=== PATIENT | female | born 1940 | race African-American/Black ===

== ENCOUNTER 2018-01-27 09:59 | Inpatient (IN) | payer OTHER, MEDICARE ==
[2018-01-27] VITALS (7 sets, daily range): BP systolic 114–186; BP diastolic 81–126; PULSE 73–102; RESP 15–20; TEMP 97.7–98.4; O2SAT 94–100
[~2018-01-27 09:59] MED LIST: ASPI81TA11 PO; CENTTAB9 PO; DILA100C PO; DONE5TAB14 PO; HCTZ25 PO; HYDR10TA23 PO; LOSA50 PO; METO50TA PO; MEVA40TA6 PO; NIFE90 PO; OMEP20TA39 PO; POTA-267 PO; TIOT18I INH
[2018-01-27] MEDS ORDERED: METO25TA3 PO (10:32)
[2018-01-27] MEDS ORDERED: PHEN100C PO (10:32)
[2018-01-27] MEDS ORDERED: TRAZ50TA12 PO (10:32)
[2018-01-27] MEDS ORDERED: LOSA50TA PO (10:32)
[2018-01-27] MEDS ORDERED: DONE5TAB7 PO (10:32)
[2018-01-27] MEDS ORDERED: VENTAER INH (10:32)
[2018-01-27] MEDS ORDERED: OMEP40CA2 (10:32)
[2018-01-27] MEDS ORDERED: SERT-132 PO (10:32)
[2018-01-27] MEDS ORDERED: HYDR25TA5 PO (10:32)
[2018-01-27] MEDS ORDERED: CHOL1CAP26 PO (10:34)
[2018-01-27] MEDS ORDERED: MELO7.5T27 PO (10:34)
[2018-01-27] MEDS ORDERED: ATOR40TA16 PO (10:34)
[2018-01-27] MEDS ORDERED: VITACAP9 (10:34)
--- NOTE | 2018-01-27 10:36 | PD ---
HPI Chief Complaint: Chest Pain Time Seen by Provider: 10:14 Travel History International Travel<30 days: No Contact w/Intl Traveler<30days: No Traveled to known affect area: No History of Present Illness HPI The patient is a 78-year-old female who presents to the emergency department via EMS from her physician's office for chest pain. The patient states she developed chest pain in December which has been intermittent, substernal left-sided, occasionally radiating down the left arm, and associated with nausea. She does occasionally note shortness of breath, but denies any diaphoresis. 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 The patient went to see her primary physician earlier today who performed an EKG and sent the patient to the emergency department via EMS. Upon arrival the patient is chest pain-free. The patient does note she worries significantly about her at home who is a diabetic and tends to fall out of bed. The patient denies any numbness or tingling of the lower extremities. Symptoms are moderate and and intermittent. PFSH Past Medical History Hx Anticoagulant Therapy: No Arthritis: Yes Asthma: No Autoimmune Disease: No Blood Disorders: No Anxiety: Yes Depression: No Heart Rhythm Problems: Yes Cancer: No Cardiac Catheterization: No Cardiovascular Problems: Yes (hld, htn, Thoracia Aneurysm) High Cholesterol: Yes Chemotherapy: No Chest Pain: Yes Congestive Heart Failure: No COPD: No Cerebrovascular Accident: No Dementia: Yes Diabetes: No Diminished Hearing: No Endocrine: Yes Gastrointestinal Disorders: Yes GERD: No Glaucoma: No Genitourinary: No Headaches: No Hepatitis: No Hiatal Hernia: No Hypertension: Yes Immune Disorder: No Implanted Vascular Access Dvce: No Kidney Stones: No Musculoskeletal: Yes Neurologic: Yes Psychiatric: Yes Reproductive: No Respiratory: Yes Migraines: No Myocardial Infarction: Yes Pneumonia: Yes Radiation Therapy: No Renal Failure: Yes (CKD 3, per medical record from DR edwards) Seizures: Yes Sickle Cell Disease: No Sleep Apnea: No Thyroid Disease: Yes Ulcer: No Tetanus Vaccination: Unknown PNEUMOCCOCAL Vaccine (Year): 1 Menopausal: Yes : 2 Para: 2 Past Surgical History Abdominal Surgery: No AICD: No Appendectomy: No Arteriovenous Shunt: No Cardiac Surgery: Yes (aneurysm) Cholecystectomy: Yes Coronary Artery Bypass Graft: No Ear Surgery: No Endocrine Surgery: No Eye Surgery: No Genitourinary Surgery: No Gynecologic Surgery: Yes (hysterectomy) Hysterectomy: Yes Insulin Pump: No Joint Replacement: No Neurologic Surgery: Yes (BRAIN SURGERY DUE TO ANEURYSM) Oral Surgery: No Pacemaker: No Thoracic Surgery: No Other Surgery: Yes Family History Family Myocardial Infarction: Yes Social History Alcohol Use: No Tobacco Use: Yes (5-6 CIGS PER DAY ) Substance Use: No Allergies-Medications (Allergen,Severity, Reaction): Coded Allergies: *MDRO Multi-Drug Resistant Organism (Verified Allergy, Unknown, 01/27/18) C-diff 12/2013 acetaminophen (Verified Allergy, Unknown, 01/27/18) codeine (Verified Allergy, Unknown, 01/27/18) MRI PRECAUTION (Verified Adverse Reaction, Severe, ANEURYSM CLIP-(JLT) 07/06 DR. HERNANDEZ, 01/27/18) Reported Meds & Prescriptions Reported Meds & Active Scripts Active Reported Vitamin B Complex-C (B Complex W/ C) 1 Cap Cap Meloxicam 7.5 Mg Tab 7.5 Mg PO DAILY Atorvastatin (Atorvastatin Calcium) 40 Mg Tab 40 Mg PO HS Decara (Cholecalciferol) 50,000 Unit Cap 50,000 Units PO Q7D Trazodone (Trazodone HCl) 50 Mg Tab 2 Tab PO HS Metoprolol Tartrate 25 Mg Tab 25 Mg PO BID Hydrochlorothiazide 25 Mg Tab 25 Mg PO DAILY Phenytoin Extended 100 Mg Cap 100 Mg PO BID Omeprazole 40 Mg Cap 40 Mg DAILY Ventolin Hfa 18 GM Inh (Albuterol Sulfate) 90 Mcg/Act Aer 2 Puff INH Q4-6H PRN Sertraline (Sertraline HCl) 50 Mg Tab 50 Mg PO DAILY Losartan (Losartan Potassium) 50 Mg Tab 50 Mg PO DAILY Donepezil 5 Mg Tab 5 Mg PO HS Review of Systems Except as stated in HPI: all other systems reviewed are Neg General / Constitutional: No: Fever HENT: No: Headaches, Lightheadedness, Neck Stiffness, Neck Pain Cardiovascular: Positive: Chest Pain or Discomfort, No: Diaphoresis, Dyspnea on exertion Respiratory: Positive: Shortness of Breath Gastrointestinal: Positive: Nausea, Vomiting, No: Abdominal Pain Musculoskeletal: No: Pain Neurologic: No: Dizziness, Syncope, Focal Abnormalities Physical Exam Narrative GENERAL: Awake, alert, pleasant 78-year-old female who appears her stated age and is in no acute respiratory distress. SKIN: Focused skin assessment warm/dry. HEAD: Atraumatic. Normocephalic. EYES: No injection or drainage. ENT: No nasal bleeding or discharge. Mucous membranes pink and moist. NECK: Trachea midline. No JVD. CARDIOVASCULAR: Regular rate and rhythm. No murmur appreciated. Palpation of the chest wall does not reproduce symptoms. RESPIRATORY: No accessory muscle use. Clear to auscultation. Breath sounds equal bilaterally. GASTROINTESTINAL: Abdomen soft, non-tender, nondistended. No rebound tenderness. MUSCULOSKELETAL: No obvious deformities. No clubbing. No cyanosis. No edema. NEUROLOGICAL: Awake and alert. No obvious cranial nerve deficits. Motor grossly within normal limits. Normal speech. PSYCHIATRIC: Appropriate mood and affect; insight and judgment normal. Data Data Last Documented VS Vital Signs Date Time Temp Pulse Resp B/P (MAP) Pulse Ox O2 Delivery O2 Flow Rate FiO2 01/27/18 12:17 144/102 (116) 01/27/18 11:31 78 16 96 Room Air 01/27/18 10:16 98.4 Orders Orders Electrocardiogram (01/27/18 10:31) Ckmb (Isoenzyme) Profile (01/27/18 10:31) Complete Blood Count With Diff (01/27/18 10:31) Comprehensive Metabolic Panel (01/27/18 10:31) Magnesium (Mg) (01/27/18 10:31) Prothrombin Time / Inr (Pt) (01/27/18 10:31) Act Partial Throm Time (Ptt) (01/27/18 10:31) Troponin I (01/27/18 10:31) Lipase (01/27/18 10:31) Chest, Single Ap (01/27/18 10:31) Ecg Monitoring (01/27/18 10:31) Bilateral Bp Monitoring (01/27/18 10:31) Iv Access Insert/Monitor (01/27/18 10:31) Oximetry (01/27/18 10:31) Oxygen Administration (01/27/18 10:31) Sodium Chloride 0.9% Flush (Ns Flush) (01/27/18 10:45) Cta Thor Abd Aorta W Iv C W3d (01/27/18 10:31) Labetalol Inj (Trandate Inj) (01/27/18 10:45) Morphine Inj (Morphine Inj) (01/27/18 12:00) Morphine Inj (Morphine Inj) (01/27/18 12:15) Morphine Inj (Morphine Inj) (01/27/18 12:12) Iohexol 350 Inj (Omnipaque 350 Inj) (01/27/18 12:48) Admit Order (Ed Use Only) (01/27/18 14:33) Labs Laboratory Tests Test 01/27/18 10:40 White Blood Count 4.9 TH/MM3 Red Blood Count 4.03 MIL/MM3 Hemoglobin 13.1 GM/DL Hematocrit 39.7 % Mean Corpuscular Volume 98.7 FL Mean Corpuscular Hemoglobin 32.4 PG Mean Corpuscular Hemoglobin Concent 32.9 % Red Cell Distribution Width 13.6 % Platelet Count 107 TH/MM3 Mean Platelet Volume 9.3 FL Neutrophils (%) (Auto) 60.0 % Lymphocytes (%) (Auto) 25.8 % Monocytes (%) (Auto) 12.8 % Eosinophils (%) (Auto) 0.5 % Basophils (%) (Auto) 0.9 % Neutrophils # (Auto) 2.9 TH/MM3 Lymphocytes # (Auto) 1.3 TH/MM3 Monocytes # (Auto) 0.6 TH/MM3 Eosinophils # (Auto) 0.0 TH/MM3 Basophils # (Auto) 0.0 TH/MM3 CBC Comment DIFF FINAL Differential Comment Prothrombin Time 11.6 SEC Prothromb Time International Ratio 1.1 RATIO Activated Partial Thromboplast Time 26.0 SEC Blood Urea Nitrogen 9 MG/DL Creatinine 0.77 MG/DL Random Glucose 82 MG/DL Total Protein 7.2 GM/DL Albumin 3.2 GM/DL Calcium Level 8.1 MG/DL Magnesium Level 1.8 MG/DL Alkaline Phosphatase 154 U/L Aspartate Amino Transf (AST/SGOT) 28 U/L Alanine Aminotransferase (ALT/SGPT) 14 U/L Total Bilirubin 0.4 MG/DL Sodium Level 139 MEQ/L Potassium Level 3.7 MEQ/L Chloride Level 105 MEQ/L Carbon Dioxide Level 23.9 MEQ/L Anion Gap 10 MEQ/L Estimat Glomerular Filtration Rate 88 ML/MIN Total Creatine Kinase 87 U/L Troponin I LESS THAN 0.02 NG/ML Lipase 483 U/L [facility] Medical Decision Making Medical Screen Exam Complete: Yes Emergency Medical Condition: Yes Medical Record Reviewed: Yes Interpretation(s) EKG reveals normal sinus rhythm with a rate 82. Inverted T waves noted in lead V2, V3, V4, V5, V6, 1, and aVL. The T-wave changes in lead V3 through V6 and I and aVL are new when compared to previous EKG. Last Impressions Chest X-Ray 01/27/18 1031 Signed Impressions: Service Date/Time: Saturday, January 27, 2018 11:10 - CONCLUSION: No acute disease. Boom Tatum MD Aorta CTA 01/27/18 1031 Signed Impressions: Service Date/Time: Saturday, January 27, 2018 12:25 - CONCLUSION: 1. The examination demonstrates aneurysmal dilation of the ascending aorta aortic arch and descending thoracic aorta. The aorta at its widest point in the arch measures approximately 3.8 cm. This is only slightly larger than seen on previous exam it should be noted on the prior exam there appears to have been an acute thrombosis of a dissection flap. This has significantly improved in appearance with partial healing. The proximal descending thoracic aorta is at the upper limits of normal in caliber measuring 2.7 cm. 2. The distal thoracic aorta demonstrates a focal area of contrast extending out into the mural thrombus. This appears to be feeding the origin of an intercostal artery. There was contrast in this area on the previous study of 2014 however, it appears more organized and slightly larger on today's exam. 3. The distalmost portion of thoracic aorta is aneurysmal. Maximum dimension is essentially at the diaphragmatic hiatus. The aorta measures 5.4 centimeters at this level. This is similar in size compared to previous. 4. The abdominal aorta is aneurysmal in its distal segment measuring 5.6 cm. This has enlarged when compared to previous. The aorta measured 3.7 cm at this location on the prior. 5. 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 The right measures approximately 2.5 cm. The iliac circulation is mildly enlarged compared to previous as well. Maximum dimension on the left was 2.2 cm on the prior. Tong Thomas MD Laboratory Tests Test 01/27/18 10:40 White Blood Count 4.9 TH/MM3 Red Blood Count 4.03 MIL/MM3 Hemoglobin 13.1 GM/DL Hematocrit 39.7 % Mean Corpuscular Volume 98.7 FL Mean Corpuscular Hemoglobin 32.4 PG Mean Corpuscular Hemoglobin Concent 32.9 % Red Cell Distribution Width 13.6 % Platelet Count 107 TH/MM3 Mean Platelet Volume 9.3 FL Neutrophils (%) (Auto) 60.0 % Lymphocytes (%) (Auto) 25.8 % Monocytes (%) (Auto) 12.8 % Eosinophils (%) (Auto) 0.5 % Basophils (%) (Auto) 0.9 % Neutrophils # (Auto) 2.9 TH/MM3 Lymphocytes # (Auto) 1.3 TH/MM3 Monocytes # (Auto) 0.6 TH/MM3 Eosinophils # (Auto) 0.0 TH/MM3 Basophils # (Auto) 0.0 TH/MM3 CBC Comment DIFF FINAL Differential Comment Prothrombin Time 11.6 SEC Prothromb Time International Ratio 1.1 RATIO Activated Partial Thromboplast Time 26.0 SEC Blood Urea Nitrogen 9 MG/DL Creatinine 0.77 MG/DL Random Glucose 82 MG/DL Total Protein 7.2 GM/DL Albumin 3.2 GM/DL Calcium Level 8.1 MG/DL Magnesium Level 1.8 MG/DL Alkaline Phosphatase 154 U/L Aspartate Amino Transf (AST/SGOT) 28 U/L Alanine Aminotransferase (ALT/SGPT) 14 U/L Total Bilirubin 0.4 MG/DL Sodium Level 139 MEQ/L Potassium Level 3.7 MEQ/L Chloride Level 105 MEQ/L Carbon Dioxide Level 23.9 MEQ/L Anion Gap 10 MEQ/L Estimat Glomerular Filtration Rate 88 ML/MIN Total Creatine Kinase 87 U/L Troponin I LESS THAN 0.02 NG/ML Lipase 483 U/L Differential Diagnosis Differential diagnosis includes acute coronary syndrome, aortic dissection, thoracic aneurysm, pulmonary embolism, GERD, esophageal spasm, costochondritis, anxiety. Narrative Course IV was established, labs are drawn and sent, the patient was placed on cardiac telemetry monitoring and continuous pulse oximetry monitoring. EKG was ordered and interpreted. Chest x-ray was obtained. The patient is currently chest pain -free, therefore, no medications were acutely administered, however, CTA of the chest and abdomen were obtained to evaluate for possible dissection, prior to anticoagulation with aspirin. CTA of the chest was reviewed, some of the aneurysms are stable, some are larger, however, I did review the patient's previous admission in 2013 and notes by the cardiothoracic surgeons at that time. They stated the patient had non-operative aneurysms and dissection at that time. The patient's abdominal aneurysm has enlarged. The patient apparently was evaluated at [facility] and was deemed a nonoperative candidate. It appears the patient needs better blood pressure control, will be admitted to the medical service for observation of patient's blood pressure. Patient is comfortable with this plan of care and disposition. The patient did have EKG findings which revealed new inverted T waves, may benefit from serial cardiac enzymes. Physician Communication Physician Communication The patient has [employer], therefore, [facility] were paged for admission. Diagnosis Primary Impression: Atypical chest pain Additional Impressions: Hx of abdominal aortic aneurysm Accelerated hypertension Admitting Information Admitting Physician Requests: Admit Condition: Stable Ramiro Rg MD January 27, 2018 10:36
[2018-01-27] MEDS ORDERED: LABETALOL HCL 100 MG/20 ML VIAL IV PUSH ONE (10:45)
[2018-01-27] MEDS ORDERED: SODIUM CHLORIDE 0.9% FLUSH 10 ML FLUSH IVF PRN (10:45)
[2018-01-27 11:07] LABS: AUTOMATED NEUTROPHIL # 2.9 TH/MM3 (1.8-7.7); BASOPHIL % 0.9 % (0.0-2.0); EOSINOPHIL % 0.5 % (0.0-4.0); HEMATOCRIT 39.7 % (35.0-46.0); HEMOGLOBIN 13.1 GM/DL (11.6-15.3); LYMPH % 25.8 % (9.0-44.0); LYMPHOCYTE # 1.3 TH/MM3 (1.0-4.8); MEAN CELL VOLUME 98.7 FL (80.0-100.0); MEAN CORPUSCULAR HEMOGLOBIN 32.4 PG (27.0-34.0); MEAN CORPUSCULAR HGB CONC 32.9 % (32.0-36.0); MEAN PLATELET VOLUME 9.3 FL (7.0-11.0); MONO % 12.8 % (0.0-8.0); MONOCYTE # 0.6 TH/MM3 (0-0.9); PLATELET COUNT 107 TH/MM3 (150-450); RED BLOOD COUNT 4.03 MIL/MM3 (4.00-5.30); RED CELL DISTRIBUTION WIDTH 13.6 % (11.6-17.2); WHITE BLOOD COUNT 4.9 TH/MM3 (4.0-11.0)
[2018-01-27 11:19] LABS: INTERNATIONAL NORMALIZED RATIO 1.1 RATIO; PROTHROMBIN TIME - PATIENT 11.6 SEC (9.8-11.6)
--- NOTE | 2018-01-27 11:52 | RADRPT ---
EXAM DATE/TIME: 01/27/2018 11:10 [facility] COMPARISON: No previous studies available for comparison. INDICATIONS : Short of breath with chest tightness. MEDICAL HISTORY : Congestive heart failure. SURGICAL HISTORY : None. ENCOUNTER: Initial ACUITY: 2 days PAIN SCORE: 2/10 LOCATION: Bilateral chest FINDINGS: Hyperinflation and cardiomegaly. Atherosclerotic calcifications are seen. There is no consolidation o r effusion. Descending thoracic aortic aneurysm with again noted. CONCLUSION: No acute disease. Boom Tatum MD on January 27, 2018 at 11:48 Board Certified Radiologist. This report was verified electronically.
[2018-01-27] MEDS ORDERED: MORPHINE SULFATE 2 MG/ML SYRINGE IV PUSH ONE (12:00)
[2018-01-27 12:01] LABS: ALBUMIN 3.2 GM/DL (3.4-5.0); BLOOD UREA NITROGEN 9 MG/DL (7-18); CALCIUM 8.1 MG/DL (8.5-10.1); CREATININE 0.77 MG/DL (0.50-1.00); GLOMERULAR FILTRATION RATE 88 ML/MIN (>89); GLUCOSE,RANDOM 82 MG/DL (74-106); MAGNESIUM 1.8 MG/DL (1.5-2.5); TOTAL PROTEIN 7.2 GM/DL (6.4-8.2)
[2018-01-27 12:02] LABS: ALKALINE PHOSPHATASE 154 U/L (45-117); ALT (GPT) 14 U/L (10-53); AST (GOT) 28 U/L (15-37); BICARBONATE 23.9 MEQ/L (21.0-32.0); CHLORIDE 105 MEQ/L (98-107); SODIUM (NA) 139 MEQ/L (136-145); TOTAL BILIRUBIN ADULT 0.4 MG/DL (0.2-1.0)
[2018-01-27 12:03] LABS: TROPONIN I LESS THAN 0.02 NG/ML (0.02-0.05)
[2018-01-27] MEDS ORDERED: MORPHINE SULFATE 4 MG/ML INJ ONE (12:12)
[2018-01-27] MEDS ORDERED: MORPHINE SULFATE 4 MG/ML INJ IV PUSH ONE (12:15)
[2018-01-27] MEDS ORDERED: IOHEXOL 350 MG/ML 10 ML VIAL (for RAD DIAG) IVCONTRAST ONE (12:48)
--- NOTE | 2018-01-27 13:34 | RADRPT ---
EXAM DATE/TIME: 01/27/2018 12:25 [facility] COMPARISON: CTA THORACIC ABDOMINAL AORTA W 3D RECON, July 07, 2015, 3:46. INDICATIONS : Abdominal and chest pain, left arm weakness. IV CONTRAST: 150 cc Omnipaque 350 (iohexol) IV RADIATION DOSE: 4.52 CTDIvol (mGy) MEDICAL HISTORY : Dementia. Cardiovascular disease Hypertension.Abdominal aneurysm SURGICAL HISTORY : Hysterectomy. ENCOUNTER: Initial ACUITY: 1 week PAIN SCALE: 5/10 LOCATION: chest TECHNIQUE: Volumetric scanning was performed using a multi-row detector CT scanner. The data was post processed with a variety of visualization algorithms including full volume maximum intensity projection, multi -planar sliding thin slab reformation, curved planar reformation, and surface rendering techniques. Using automated exposure control and adjustment of the mA and/or kV according to patient size, radiat ion dose was kept as low as reasonably achievable to obtain optimal diagnostic quality images. DICOM format image data is available electronically for review and comparison. FINDINGS: LUNGS: The visualized pulmonary parenchyma demonstrates moderate COPD changes. No suspicious mass lesions ar e identified. The heart is normal in size. MEDIASTINUM: No significant hilar, mediastinal or axillary adenopathy is present. ABDOMEN: The solid organs of the abdomen are grossly intact by arterial phase imaging. No retroperitoneal andi opathy is identified. There is no free air or free fluid. PELVIS: There is no significant free fluid in the pelvis. No free air is seen. No iliac or inguinal adenopath y is present. AORTA/ILIAC : The examination demonstrates the aortic root to be normal in caliber. There is aneurysmal dilation of the ascending aorta with a maximum dimension of 3.7 cm. The arch is significantly dilated measuring 3.8 cm in its mid aspect. There is normal anatomic branching of the great vessels from the arch. The origins of the great vessels are widely patent. The aorta tapers in size along the course of the dist al arch and at measures approximately 2.7 cm in its proximal aspect. Distally, the examination demons trates contrast projecting into the mural thrombus in its mid thoracic segment. This appears to be fe eding in intercostal artery at this location. Beneath this there is significant aneurysmal enlargemen t of the distal thoracic aorta measuring approximately 5.4 cm in its distal thoracic segment. The aor ta remains aneurysmal across the origins of the celiac, SMA and renal arteries. Inferiorly the infrar enal aorta is quite aneurysmal measuring 5.6 cm just above the iliac bifurcation. The aneurysmal dila tion extends down to and involves the proximal common iliac arteries. The left common iliac measures 5.3 CM. The proximal right common iliac measures 2.3 CM. The external iliac arteries are unopacified but appear normal in caliber. CONCLUSION: 1. The examination demonstrates aneurysmal dilation of the ascending aorta aortic arch and descending thoracic aorta. The aorta at its widest point in the arch measures approximately 3.8 cm. This is onl y slightly larger than seen on previous exam it should be noted on the prior exam there appears to baker ve been an acute thrombosis of a dissection flap. This has significantly improved in appearance with partial healing. The proximal descending thoracic aorta is at the upper limits of normal in caliber m easuring 2.7 cm. 2. The distal thoracic aorta demonstrates a focal area of contrast extending out into the mural throm bus. This appears to be feeding the origin of an intercostal artery. There was contrast in this area on the previous study of 2014 however, it appears more organized and slightly larger on today's exam. 3. The distalmost portion of thoracic aorta is aneurysmal. Maximum dimension is essentially at the di aphragmatic hiatus. The aorta measures 5.4 centimeters at this level. This is similar in size compare d to previous. 4. The abdominal aorta is aneurysmal in its distal segment measuring 5.6 cm. This has enlarged when c ompared to previous. The aorta measured 3.7 cm at this location on the prior. 5. 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 The right measures approximately 2.5 cm. The iliac circulation is mildly enlarged compared to previous as well. Maximum dimension on the left was 2.2 cm on the prior. Tong Thomas MD on January 27, 2018 at 13:08 Board Certified Radiologist. This report was verified electronically.
[2018-01-27] MEDS ORDERED: MAGNESIUM HYDROXIDE SUSP 30 ML CUP PO PRN (14:45)
[2018-01-27] MEDS ORDERED: SODIUM CHLORIDE 0.9% FLUSH 10 ML FLUSH IV FLUSH PRN (14:45)
[2018-01-27] MEDS ORDERED: NIFEdipine 60 MG SUSTAINED RELEASE TAB PO ONE (14:45)
[2018-01-27] MEDS ORDERED: NALOXONE HCL 0.4 MG/ML AMP IV PUSH PRN (14:45)
[2018-01-27] MEDS ORDERED: BISACODYL 10 MG SUPP RECTAL PRN (14:45)
[2018-01-27] MEDS ORDERED: LACTULOSE SYRUP 20 GM/30 ML CUP PO PRN (14:45)
[2018-01-27] MEDS ORDERED: ENALAPRILAT 1.25 MG/ML VIAL IV PUSH PRN (14:45)
[2018-01-27] MEDS ORDERED: SENNOSIDES 8.6 MG TAB PO PRN (14:45)
[2018-01-27] MEDS ORDERED: ALBUTEROL SULFATE 90 MCG/ACT HFA 8 GM INHALER INH PRN (17:30)
--- NOTE | 2018-01-27 17:53 | HHI.HP ---
[facility] Admission Diagnosis Chest pain, history of AAA, history dissection, hypertension Diagnoses: Travel History International Travel<30 Days: No Contact w/Intl Traveler <30 Da: No Traveled to Known Affected Are: No History of Present Illness 78-year-old female history of dementia, thoracic aortic aneurysm who presents with a one-month history of intermittent sharp left sided chest pain radiating to left arm as well as stomach. She is currently asymptomatic. she reports that this has been going on since December, occurs usually when she is upset that her has fallen out of bed. She says she has run out of some of her medications recently but is not sure of the names of them. She says she was supposed to go to a doctor's appointment today but missed it, which is why she is here. Again, she denies any current pain. She denies any nausea, vomiting, lightheadedness, dizziness, fevers, chills. She does report chronic ongoing weight loss, unable to quantify, which she attributes to poor appetite. Review of Systems Except as stated in HPI: all other systems reviewed are Neg Past Family Social History Past Medical History Hypertension COPD Abdominal and thoracic aortic aneurysm Seizure disorder Depression GERD Past Surgical History Left forearm surgery Brain surgery for aneurysm over 15 years ago. Hysterectomy Reported Medications Reported Meds & Active Scripts Active Reported Vitamin B Complex-C (B Complex W/ C) 1 Cap Cap Meloxicam 7.5 Mg Tab 7.5 Mg PO DAILY Atorvastatin (Atorvastatin Calcium) 40 Mg Tab 40 Mg PO HS Decara (Cholecalciferol) 50,000 Unit Cap 50,000 Units PO Q7D Trazodone (Trazodone HCl) 50 Mg Tab 2 Tab PO HS Metoprolol Tartrate 25 Mg Tab 25 Mg PO BID Hydrochlorothiazide 25 Mg Tab 25 Mg PO DAILY Phenytoin Extended 100 Mg Cap 100 Mg PO BID Omeprazole 40 Mg Cap 40 Mg DAILY Ventolin Hfa 18 GM Inh (Albuterol Sulfate) 90 Mcg/Act Aer 2 Puff INH Q4-6H PRN Sertraline (Sertraline HCl) 50 Mg Tab 50 Mg PO DAILY Losartan (Losartan Potassium) 50 Mg Tab 50 Mg PO DAILY Donepezil 5 Mg Tab 5 Mg PO HS Allergies: Coded Allergies: *MDRO Multi-Drug Resistant Organism (Verified Allergy, Unknown, 01/27/18) C-diff 12/2013 acetaminophen (Verified Allergy, Unknown, 01/27/18) codeine (Verified Allergy, Unknown, 01/27/18) MRI PRECAUTION (Verified Adverse Reaction, Severe, ANEURYSM CLIP-(JLT) 07/06 DR. HERNANDEZ, 01/27/18) Family History Patient says father had a stroke, mother had a heart problem Social History Patient reports that she smokes 2 cigarettes per day, and has smoked for the past 50 years. Denies any alcohol or illicit drugs. Physical Exam Vital Signs Vital Signs Date Time Temp Pulse Resp B/P (MAP) Pulse Ox O2 Delivery O2 Flow Rate FiO2 01/27/18 17:07 97.7 73 20 162/93 (116) 99 01/27/18 16:25 01/27/18 15:46 98.1 77 19 140/88 (105) 94 Room Air 01/27/18 12:17 144/102 (116) 01/27/18 11:31 78 16 152/96 (114) 96 Room Air 01/27/18 10:45 82 15 170/126 (141) 99 Room Air 01/27/18 10:16 90 17 99 Room Air 01/27/18 10:16 98.4 93 16 175/117 (136) 100 Room Air 186/122 (143) Physical Exam GENERAL: This is a well-nourished, well-developed patient, in no apparent distress. SKIN: No rashes, ecchymoses or lesions. Cool and dry. HEAD: Atraumatic. Normocephalic. No temporal or scalp tenderness. EYES: Pupils equal round and reactive. Extraocular motions intact. No scleral icterus. No injection or drainage. ENT: Nose without bleeding, purulent drainage or septal hematoma. Throat without erythema, tonsillar hypertrophy or exudate. Uvula midline. Airway patent. NECK: Trachea midline. No JVD or lymphadenopathy. Supple, nontender, no meningeal signs. CARDIOVASCULAR: Regular rate and rhythm without murmurs, gallops, or rubs. Pulses equal bilaterally in upper extremities. RESPIRATORY: Clear to auscultation. Breath sounds equal bilaterally. No wheezes , rales, or rhonchi. GASTROINTESTINAL: Abdomen soft, non-tender, nondistended. No hepato-splenomegaly , or palpable masses. No guarding. MUSCULOSKELETAL: Extremities without clubbing, cyanosis, or edema. No joint tenderness, effusion, or edema noted. No calf tenderness. Negative Homans sign bilaterally. NEUROLOGICAL: Awake and alert. Cranial nerves II through XII intact. Motor and sensory grossly within normal limits. Five out of 5 muscle strength in all muscle groups. Normal speech. Laboratory Laboratory Tests Test 01/27/18 10:40 White Blood Count 4.9 Red Blood Count 4.03 Hemoglobin 13.1 Hematocrit 39.7 Mean Corpuscular Volume 98.7 Mean Corpuscular Hemoglobin 32.4 Mean Corpuscular Hemoglobin Concent 32.9 Red Cell Distribution Width 13.6 Platelet Count 107 Mean Platelet Volume 9.3 Neutrophils (%) (Auto) 60.0 Lymphocytes (%) (Auto) 25.8 Monocytes (%) (Auto) 12.8 Eosinophils (%) (Auto) 0.5 Basophils (%) (Auto) 0.9 Neutrophils # (Auto) 2.9 Lymphocytes # (Auto) 1.3 Monocytes # (Auto) 0.6 Eosinophils # (Auto) 0.0 Basophils # (Auto) 0.0 CBC Comment DIFF FINAL Differential Comment Prothrombin Time 11.6 Prothromb Time International Ratio 1.1 Activated Partial Thromboplast Time 26.0 Blood Urea Nitrogen 9 Creatinine 0.77 Random Glucose 82 Total Protein 7.2 Albumin 3.2 Calcium Level 8.1 Magnesium Level 1.8 Alkaline Phosphatase 154 Aspartate Amino Transf (AST/SGOT) 28 Alanine Aminotransferase (ALT/SGPT) 14 Total Bilirubin 0.4 Sodium Level 139 Potassium Level 3.7 Chloride Level 105 Carbon Dioxide Level 23.9 Anion Gap 10 Estimat Glomerular Filtration Rate 88 Total Creatine Kinase 87 Troponin I LESS THAN 0.02 Lipase 483 Result Diagram: 01/27/18 1040 01/27/18 1040 Imaging Last Impressions Chest X-Ray 01/27/18 1031 Signed Impressions: Service Date/Time: Saturday, January 27, 2018 11:10 - CONCLUSION: No acute disease. Boom Tatum MD Aorta CTA 01/27/18 1031 Signed Impressions: Service Date/Time: Saturday, January 27, 2018 12:25 - CONCLUSION: 1. The examination demonstrates aneurysmal dilation of the ascending aorta aortic arch and descending thoracic aorta. The aorta at its widest point in the arch measures approximately 3.8 cm. This is only slightly larger than seen on previous exam it should be noted on the prior exam there appears to have been an acute thrombosis of a dissection flap. This has significantly improved in appearance with partial healing. The proximal descending thoracic aorta is at the upper limits of normal in caliber measuring 2.7 cm. 2. The distal thoracic aorta demonstrates a focal area of contrast extending out into the mural thrombus. This appears to be feeding the origin of an intercostal artery. There was contrast in this area on the previous study of 2014 however, it appears more organized and slightly larger on today's exam. 3. The distalmost portion of thoracic aorta is aneurysmal. Maximum dimension is essentially at the diaphragmatic hiatus. The aorta measures 5.4 centimeters at this level. This is similar in size compared to previous. 4. The abdominal aorta is aneurysmal in its distal segment measuring 5.6 cm. This has enlarged when compared to previous. The aorta measured 3.7 cm at this location on the prior. 5. 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 The right measures approximately 2.5 cm. The iliac circulation is mildly enlarged compared to previous as well. Maximum dimension on the left was 2.2 cm on the prior. Tong Thomas MD Caprini VTE Risk Assessment Caprini VTE Risk Assessment: Mod/High Risk (score >= 2) Caprini Risk Assessment Model Point Value = 1 Point Value = 2 Point Value = 3 Point Value = 5 Age 41-60 Minor surgery BMI > 25 kg/m2 Swollen legs Varicose veins or History of unexplained or recurrent spontaneous Oral contraceptives or hormone replacement Sepsis (< 1 month) Serious lung disease, including pneumonia (< 1 month) Abnormal pulmonary function Acute myocardial infarction Congestive heart failure (< 1 month) History of inflammatory bowel disease Medical patient at bed rest Age 61-74 Arthroscopic surgery Major open surgery (> 45 min) Laparoscopic surgery (> 45 min) Malignancy Confined to bed (> 72 hours) Immobilizing plaster cast Central venous access Age >= 75 History of VTE Family history of VTE Factor V Leiden Prothrombin [id number] Lupus anticoagulant Anticardiolipin antibodies Elevated serum homocysteine Heparin-induced thrombocytopenia Other congenital or acquired thrombophilia Stroke (< 1 month) Elective arthroplasty Hip, pelvis, or leg fracture Acute spinal cord injury (< 1 month) Prophylaxis Regimen Total Risk Factor Score Risk Level Prophylaxis Regimen 0-1 Low Early ambulation 2 Moderate Order ONE of the following: *Sequential Compression Device (SCD) *Heparin 5000 units SQ BID 3-4 Higher Order ONE of the following medications: *Heparin 5000 units SQ TID *Enoxaparin/Lovenox 40 mg SQ daily (WT < 150 kg, CrCl > 30 mL/min) *Enoxaparin/Lovenox 30 mg SQ daily (WT < 150 kg, CrCl > 10-29 mL/min) *Enoxaparin/Lovenox 30 mg SQ BID (WT < 150 kg, CrCl > 30 mL/min) AND/OR *Sequential Compression Device (SCD) 5 or more Highest Order ONE of the following medications: *Heparin 5000 units SQ TID (Preferred with Epidurals) *Enoxaparin/Lovenox 40 mg SQ daily (WT < 150 kg, CrCl > 30 mL/min) *Enoxaparin/Lovenox 30 mg SQ daily (WT < 150 kg, CrCl > 10-29 mL/min) *Enoxaparin/Lovenox 30 mg SQ BID (WT < 150 kg, CrCl > 30 mL/min) AND *Sequential Compression Device (SCD) Assessment and Plan Assessment and Plan //Intermittent chest pain. Currently asymptomatic //History of thoracic aortic aneurysm. = Patient previously noted not to be a surgical candidate for thoracic aortic aneurysm. = Imaging of thoracic aorta as above with some gradual changes, however no acute changes = Systolic blood pressures in the 180s on presentation. = Blood pressure control. Would be under systolic of 120. = Trend EKGs and troponins. = Apparent new T-wave inversion on EKG. Cardiology consultation. //Accelerated hypertension. With systolic blood pressures in the 180s on admission. = Restart home blood pressure meds and monitor. //Chronic severe dementia. Continue donepezil. //Medication noncompliance = Secondary to dementia //Seizure disorder. Chronic. Continue phenytoin. //Depression. Chronic. Continue Zoloft. Will hold off on trazodone due to hypertension. //GERD. Chronic. Continue PPI. //Tobacco abuse. Patient counseled on cessation. //Chronic ongoing weight loss. This could be secondary to dementia. Tobacco cessation could be helpful. Encourage p.o. intake. Discussed Condition With Patient, nurse, ED physician. Juice Luis MD January 27, 2018 17:53
[2018-01-27] MEDS: hydrALAZINE HCL 50 MG TAB PO SCH ×2 (18:36→20:42)
--- NOTE | 2018-01-27 18:53 | MB ---
cc: Jonathan Rivera MD DATE: 01/27/2018 REASON FOR CONSULTATION: For evaluation of chest pain. HISTORY OF PRESENT ILLNESS: Alie Jacobs is an 82-year-old woman with hypertensive heart disease. She has aortic aneurysms. She was evaluated in [facility]. She said she was told that she would not survive surgery on her aneurysms. She has had documented severe left ventricular hypertrophy by echo and by EKG and her blood pressure is poorly controlled. She has been having intermittent chest pain for 2 weeks. She describes it as an ache-like pain in the left chest; it comes and goes. She is not currently having any. Her blood pressure was 186/122 when she came to the ER. Apparently has had a previous aortic dissection based on the reading of the CT scan, which is showing some healing. She is a lifelong smoker. She has not smoked in about 5 days, but has not formally made a decision to quit smoking. Her last nuclear stress test was 07/2014 and this showed no stress-induced ischemia. Her initial troponin is normal. PAST MEDICAL HISTORY: Includes hypertensive heart disease. There is mention in her history of some dementia, although she seems alert. Hyperlipidemia, hypertension, COPD, murmur of aortic valve sclerosis, previous pancreatitis, previous seizures, tobacco use disorder. PAST SURGICAL HISTORY: Includes cerebral aneurysm surgery in 1997, cholecystectomy, hysterectomy. SOCIAL HISTORY: He is . She smokes. Denies alcohol. ALLERGIES: INCLUDE TYLENOL #3. FAMILY HISTORY: Positive for stroke in the father and heart disease in the mother. PHYSICAL EXAMINATION: GENERAL: A thin -[place] female, alert and oriented, no acute distress. VITAL SIGNS: Charted. Blood pressure is very elevated. HEENT: Exam unremarkable. NECK: No JVD. No bruits. CHEST: Shows diminished breath sounds throughout. CARDIAC: S1, S2. Regular rate and rhythm with a prominent 2/6 systolic ejection murmur suggestive of aortic valve sclerosis. ABDOMEN: Soft, nontender. EXTREMITIES: Reveal diminished pedal pulses. LABORATORY DATA: Charted. Troponin is negative. IMAGING STUDIES: CTA was abnormal. See report. IMPRESSION: 1. Hypertensive heart disease with severe uncontrolled hypertension. 2. Chest pain without currently any objective evidence for ischemia. 3. Electrocardiogram shows left ventricular hypertrophy, left ventricular strain from chronic hypertension and severe left ventricular hypertrophy. 4. Tobacco abuse. RECOMMENDATIONS: 1. Quit smoking. 2. Need to get her blood pressure under better control. 3. May need a nephrology consult. 4. We will see how she responds to the current medication regimen and adjust as needed. 5. Serial troponins to rule out myocardial infarction. 6. Further therapy to be determined. MD HANNAH Martinez/RAZIA , 06:36 PM , 06:52 PM
--- NOTE | 2018-01-27 19:19 | EKG ---
Date Performed: 01/27/2018 Time Performed: 10:27:00 PTAGE: 78 years EKG: Sinus rhythm LEFT ATRIAL ENLARGEMENT POSSIBLE RIGHT VENTRICULAR CONDUCTION DELAY POSSIBLE LEFT VENTRICULAR HYPERT ROPHY MODERATE T-WAVE ABNORMALITY, CONSIDER ANTEROLATERAL ISCHEMIA ABNORMAL ECG When compared to prio r tracing,patient is now in sinus rythm and has P-wave inversions consistent with ischemia or hypertr ophy. clinical correlation requested. PREVIOUS TRACING : 07/06/2015 08.12 DOCTOR: Donna Henderson Interpretating Date/Time 01/27/2018 19:40:27
[2018-01-27] MEDS ORDERED: ASPIRIN 81 MG CHEW TAB CHEW ONE (20:00)
[2018-01-27] MEDS: ATORVASTATIN 40 MG TAB PO SCH (20:43)
[2018-01-27] MEDS: PHENYTOIN SODIUM 100 MG CAP PO SCH (20:43)
[2018-01-27] MEDS: DONEPEZIL HCL 5 MG TAB PO SCH (20:43)
[2018-01-27] MEDS: METOPROLOL TARTRATE 25 MG TAB PO SCH (20:43)
[2018-01-27] MEDS: SODIUM CHLORIDE 0.9% FLUSH 10 ML FLUSH IV FLUSH SCH (20:44)
[2018-01-28] VITALS (7 sets, daily range): BP systolic 92–149; BP diastolic 58–96; PULSE 73–104; RESP 16–18; TEMP 97.6–99.6; O2SAT 97–98
[2018-01-28 02:15] LABS: AUTOMATED NEUTROPHIL # 3.4 TH/MM3 (1.8-7.7); BASOPHIL % 0.9 % (0.0-2.0); EOSINOPHIL # 0.1 TH/MM3 (0-0.4); EOSINOPHIL % 1.1 % (0.0-4.0); HEMATOCRIT 38.8 % (35.0-46.0); HEMOGLOBIN 12.9 GM/DL (11.6-15.3); LYMPH % 26.7 % (9.0-44.0); LYMPHOCYTE # 1.5 TH/MM3 (1.0-4.8); MEAN CELL VOLUME 98.1 FL (80.0-100.0); MEAN CORPUSCULAR HEMOGLOBIN 32.5 PG (27.0-34.0); MEAN CORPUSCULAR HGB CONC 33.1 % (32.0-36.0); MEAN PLATELET VOLUME 9.4 FL (7.0-11.0); MONOCYTE # 0.7 TH/MM3 (0-0.9); NEUT % 59.3 % (16.0-70.0); PLATELET COUNT 102 TH/MM3 (150-450); RED BLOOD COUNT 3.96 MIL/MM3 (4.00-5.30); RED CELL DISTRIBUTION WIDTH 13.8 % (11.6-17.2); WHITE BLOOD COUNT 5.7 TH/MM3 (4.0-11.0)
[2018-01-28 02:32] LABS: ALBUMIN 3.3 GM/DL (3.4-5.0); ALT (GPT) 15 U/L (10-53); AST (GOT) 28 U/L (15-37); BICARBONATE 30.4 MEQ/L (21.0-32.0); BLOOD UREA NITROGEN 12 MG/DL (7-18); CALCIUM 8.9 MG/DL (8.5-10.1); CHLORIDE 102 MEQ/L (98-107); GLOMERULAR FILTRATION RATE 84 ML/MIN (>89); GLUCOSE,RANDOM 101 MG/DL (74-106); SODIUM (NA) 139 MEQ/L (136-145)
[2018-01-28 02:36] LABS: ALKALINE PHOSPHATASE 174 U/L (45-117); TOTAL BILIRUBIN ADULT 0.3 MG/DL (0.2-1.0); TOTAL PROTEIN 7.5 GM/DL (6.4-8.2)
[2018-01-28] MEDS: hydrALAZINE HCL 50 MG TAB PO SCH ×3 (05:20→22:00)
[2018-01-28] MEDS ORDERED: MORPHINE SULFATE 4 MG/ML INJ IV PUSH ONE ×2 (06:45→11:45)
[2018-01-28] MEDS: PANTOPRAZOLE SOD 40 MG DELAYED RELEASE TAB PO SCH (08:22)
[2018-01-28] MEDS: SERTRALINE HCL 50 MG TAB PO SCH (08:22)
[2018-01-28] MEDS: NIFEdipine 90 MG SUSTAINED RELEASE TAB PO SCH (08:23)
[2018-01-28] MEDS: HYDROCHLOROTHIAZIDE 25 MG TAB PO SCH (08:23)
[2018-01-28] MEDS: ASPIRIN 81 MG CHEW TAB CHEW SCH (08:23)
[2018-01-28] MEDS: LOSARTAN 50 MG TAB PO SCH (08:23)
[2018-01-28] MEDS: PHENYTOIN SODIUM 100 MG CAP PO SCH ×2 (08:23→23:09)
[2018-01-28] MEDS: METOPROLOL TARTRATE 25 MG TAB PO SCH ×2 (08:24→23:09)
[2018-01-28] MEDS: SODIUM CHLORIDE 0.9% FLUSH 10 ML FLUSH IV FLUSH SCH ×2 (08:24→23:09)
[2018-01-28 08:56] LABS: TROPONIN I 0.36 NG/ML (0.02-0.05)
--- NOTE | 2018-01-28 09:42 | HHI.PR ---
Subjective Remarks Follow up for chest pain, elevated troponin. The patient reports she woke up with left upper abdominal pain today and some associated nausea, but no vomiting. She describes the pain as a 10/10 constant ache, without radiation. Denies any shortness of breath or diaphoresis. Denies any specific chest pains today. Denies any other medical complaints at this time. Objective Vitals Vital Signs Date Time Temp Pulse Resp B/P (MAP) Pulse Ox O2 Delivery O2 Flow Rate FiO2 01/28/18 07:35 97.6 87 16 92/58 (69) 97 01/28/18 04:39 98.3 88 18 149/96 (113) 98 01/28/18 04:00 88 01/28/18 03:07 98.5 83 18 129/87 (101) 97 01/27/18 20:07 98.3 102 18 114/81 (92) 96 01/27/18 17:07 97.7 73 20 162/93 (116) 99 01/27/18 16:25 01/27/18 15:46 98.1 77 19 140/88 (105) 94 Room Air 01/27/18 12:17 144/102 (116) 01/27/18 11:31 78 16 152/96 (114) 96 Room Air 01/27/18 10:45 82 15 170/126 (141) 99 Room Air 01/27/18 10:16 90 17 99 Room Air 01/27/18 10:16 98.4 93 16 175/117 (136) 100 Room Air 186/122 (143) I/O 01/27/18 01/27/18 01/27/18 01/28/18 01/28/18 01/28/18 07:00 15:00 23:00 07:00 15:00 23:00 Intake Total 300 ml 720 ml Balance 300 ml 720 ml Intake Oral 300 ml 720 ml # Voids 2 Result Diagram: 01/28/18 0202 01/28/18 0202 Imaging Last Impressions Chest X-Ray 01/27/18 1031 Signed Impressions: Service Date/Time: Saturday, January 27, 2018 11:10 - CONCLUSION: No acute disease. Boom Tatum MD Aorta CTA 01/27/18 1031 Signed Impressions: Service Date/Time: Mya, January 27, 2018 12:25 - CONCLUSION: 1. The examination demonstrates aneurysmal dilation of the ascending aorta aortic arch and descending thoracic aorta. The aorta at its widest point in the arch measures approximately 3.8 cm. This is only slightly larger than seen on previous exam it should be noted on the prior exam there appears to have been an acute thrombosis of a dissection flap. This has significantly improved in appearance with partial healing. The proximal descending thoracic aorta is at the upper limits of normal in caliber measuring 2.7 cm. 2. The distal thoracic aorta demonstrates a focal area of contrast extending out into the mural thrombus. This appears to be feeding the origin of an intercostal artery. There was contrast in this area on the previous study of 2014 however, it appears more organized and slightly larger on today's exam. 3. The distalmost portion of thoracic aorta is aneurysmal. Maximum dimension is essentially at the diaphragmatic hiatus. The aorta measures 5.4 centimeters at this level. This is similar in size compared to previous. 4. The abdominal aorta is aneurysmal in its distal segment measuring 5.6 cm. This has enlarged when compared to previous. The aorta measured 3.7 cm at this location on the prior. 5. 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 The right measures approximately 2.5 cm. The iliac circulation is mildly enlarged compared to previous as well. Maximum dimension on the left was 2.2 cm on the prior. Tong Thomas MD Objective Remarks GENERAL: Well-nourished, well-developed thin female patient in [facility]. SKIN: Warm and dry. No rash. HEENT: Normocephalic. Atraumatic. Pupils equal and round. Mucous membranes pink and moist. NECK: Supple. Trachea midline. CARDIOVASCULAR: Regular rate and rhythm. No murmur appreciated. RESPIRATORY: No accessory muscle use. Clear to auscultation. Breath sounds equal bilaterally. GASTROINTESTINAL: Abdomen soft, nondistended, mildly tender in left upper quadrant. Normoactive bowel sounds x4. Pulsatile abdomen. MUSCULOSKELETAL: No obvious deformities. Extremities without clubbing, cyanosis , or edema. NEUROLOGICAL: Awake and alert. No obvious cranial nerve deficits. Motor grossly within normal limits. Moving all extremities spontaneously. Normal speech. PSYCHIATRIC: Appropriate mood and affect; insight and judgment normal. Medications and IVs Current Medications Medications (Trade) Dose Ordered Sig/Hernandez Route Start Time Stop Time Status Last Admin (NS Flush) 2 ml UNSCH PRN IVF 01/27/18 10:45 01/27/18 10:41 (NS Flush) 2 ml UNSCH PRN IV FLUSH 01/27/18 14:45 (NS Flush) 2 ml BID IV FLUSH 01/27/18 21:00 01/28/18 08:24 (Narcan Inj) 0.4 mg UNSCH PRN IV PUSH 01/27/18 14:45 (Milk Of Magnesia Liq) 30 ml Q12H PRN PO 01/27/18 14:45 (Senokot) 17.2 mg Q12H PRN PO 01/27/18 14:45 (Dulcolax Supp) 10 mg DAILY PRN RECTAL 01/27/18 14:45 (Lactulose Liq) 30 ml DAILY PRN PO 01/27/18 14:45 (Vasotec Inj) 1.25 mg Q6H PRN IV PUSH 01/27/18 14:45 (Proair Hfa Inh) 2 puff Q4HR PRN INH 01/27/18 17:30 (Lipitor) 40 mg HS PO 01/27/18 21:00 01/27/18 20:43 (Aricept) 5 mg HS PO 01/27/18 21:00 01/27/18 20:43 (Hydrodiuril) 25 mg DAILY PO 01/28/18 09:00 01/28/18 08:23 (Cozaar) 50 mg DAILY PO 01/28/18 09:00 01/28/18 08:23 (Lopressor) 25 mg BID PO 01/27/18 21:00 01/28/18 08:24 (Dilantin) 100 mg BID PO 01/27/18 21:00 01/28/18 08:23 (Zoloft) 50 mg DAILY PO 01/28/18 09:00 01/28/18 08:22 (Protonix) 40 mg DAILY PO 01/28/18 09:00 01/28/18 08:22 (Apresoline) 50 mg Q8HR PO 01/27/18 17:45 01/28/18 05:20 (Procardia Xl) 90 mg DAILY PO 01/28/18 09:00 01/28/18 08:23 (Aspirin Chew) 81 mg DAILY CHEW 01/28/18 09:00 01/28/18 08:23 A/P Assessment and Plan 78-year-old female with history of HTN, abdominal and thoracic aortic aneurysms , COPD, GERD, seizure disorder, depression, presents with intermittent chest pains. Unstable angina, possible NSTEMI; patient with atypical chest pains 2 weeks, suspect unstable angina, patient is female with borderline diabetes. -With history of thoracic and abdominal aneurysms, checked aorta CTA which showed slight enlargement of a sending aortic aneurysm, however improved and healing thrombosis and old dissection; multiple known aneurysms throughout thorax, abdomen, iliac arteries, all slightly enlarged compared to previous exam in 2015 but no acute dissection. -Patient reportedly has been evaluated at [facility] for her aneurysms, told she would likely not survive procedure -Continue on aspirin -Trended troponins, 0.02, 0.02, 0.30, 0.36 and EKG with new T-wave inversion -Cardiology consulted, appreciate recommendations Thoracic/Abdominal/Iliac Aneurysms: chronic -Aorta CTA checked as above, shows gradual enlargements of aneurysms compared to 2015 -Previously evaluated by [facility], not surgical candidate -Control BP Accelerated hypertension: With BP 180s/120s on admission. Question compliance with medications. -Restart home blood pressure meds including metoprolol, losartan, HCTZ -Added procardia 90mg daily -Monitor BP, adjust antihypertensives as needed Dementia: Chronic -continue donepezil. Medication noncompliance: Secondary to dementia -Stressed importance of medications Seizure disorder. Chronic. -Continue phenytoin. Depression: Chronic. -Continue Zoloft. -Will hold off on trazodone due to hypertension. GERD: Chronic. -Continue PPI. Tobacco abuse: Chronic -Patient counseled on cessation. Chronic ongoing weight loss: This could be secondary to dementia. -Tobacco cessation could be helpful. -Encourage p.o. intake. Hyperlipidemia: chronic -continue patient's statin DVT Prophylaxis: Karlene Chavez PA-C January 28, 2018 9:42 am
[2018-01-28] MEDS ORDERED: MORPHINE SULFATE 4 MG/ML INJ IV PUSH PRN (11:45)
--- NOTE | 2018-01-28 20:47 | PD.CARD.PN ---
Subjective Subjective Remarks Note patient was seen at 12 Noon. No c/o angina Objective Medications Current Medications Medications (Trade) Dose Ordered Sig/Hernandez Route Start Time Stop Time Status Last Admin (NS Flush) 2 ml UNSCH PRN IVF 01/27/18 10:45 01/27/18 10:41 (NS Flush) 2 ml UNSCH PRN IV FLUSH 01/27/18 14:45 (NS Flush) 2 ml BID IV FLUSH 01/27/18 21:00 01/28/18 08:24 (Narcan Inj) 0.4 mg UNSCH PRN IV PUSH 01/27/18 14:45 (Milk Of Magnesia Liq) 30 ml Q12H PRN PO 01/27/18 14:45 (Senokot) 17.2 mg Q12H PRN PO 01/27/18 14:45 (Dulcolax Supp) 10 mg DAILY PRN RECTAL 01/27/18 14:45 (Lactulose Liq) 30 ml DAILY PRN PO 01/27/18 14:45 (Vasotec Inj) 1.25 mg Q6H PRN IV PUSH 01/27/18 14:45 (Proair Hfa Inh) 2 puff Q4HR PRN INH 01/27/18 17:30 (Lipitor) 40 mg HS PO 01/27/18 21:00 01/27/18 20:43 (Aricept) 5 mg HS PO 01/27/18 21:00 01/27/18 20:43 (Hydrodiuril) 25 mg DAILY PO 01/28/18 09:00 01/28/18 08:23 (Cozaar) 50 mg DAILY PO 01/28/18 09:00 01/28/18 08:23 (Lopressor) 25 mg BID PO 01/27/18 21:00 01/28/18 08:24 (Dilantin) 100 mg BID PO 01/27/18 21:00 01/28/18 08:23 (Zoloft) 50 mg DAILY PO 01/28/18 09:00 01/28/18 08:22 (Protonix) 40 mg DAILY PO 01/28/18 09:00 01/28/18 08:22 (Apresoline) 50 mg Q8HR PO 01/27/18 17:45 01/28/18 13:55 (Procardia Xl) 90 mg DAILY PO 01/28/18 09:00 01/28/18 08:23 (Aspirin Chew) 81 mg DAILY CHEW 01/28/18 09:00 01/28/18 08:23 (Morphine Inj) 2 mg Q4H PRN IV PUSH 01/28/18 11:45 Vital Signs / I&O Vital Signs Date Time Temp Pulse Resp B/P (MAP) Pulse Ox O2 Delivery O2 Flow Rate FiO2 01/28/18 14:03 18 01/28/18 12:22 98.1 73 18 110/70 (83) 98 01/28/18 07:35 97.6 87 16 92/58 (69) 97 01/28/18 04:39 98.3 88 18 149/96 (113) 98 01/28/18 04:00 88 01/28/18 03:07 98.5 83 18 129/87 (101) 97 I/O 01/27/18 01/27/18 01/27/18 01/28/18 01/28/18 01/28/18 07:00 15:00 23:00 07:00 15:00 23:00 Intake Total 300 ml 720 ml Balance 300 ml 720 ml Intake Oral 300 ml 720 ml # Voids 2 Physical Exam Alert, frail, thin Chest diminished breath sounds CV S1S2 RRR Abdomen soft No edema BP better controlled Laboratory Laboratory Tests Test 01/28/18 02:02 01/28/18 08:24 White Blood Count 5.7 TH/MM3 Red Blood Count 3.96 MIL/MM3 Hemoglobin 12.9 GM/DL Hematocrit 38.8 % Mean Corpuscular Volume 98.1 FL Mean Corpuscular Hemoglobin 32.5 PG Mean Corpuscular Hemoglobin Concent 33.1 % Red Cell Distribution Width 13.8 % Platelet Count 102 TH/MM3 Mean Platelet Volume 9.4 FL Neutrophils (%) (Auto) 59.3 % Lymphocytes (%) (Auto) 26.7 % Monocytes (%) (Auto) 12.0 % Eosinophils (%) (Auto) 1.1 % Basophils (%) (Auto) 0.9 % Neutrophils # (Auto) 3.4 TH/MM3 Lymphocytes # (Auto) 1.5 TH/MM3 Monocytes # (Auto) 0.7 TH/MM3 Eosinophils # (Auto) 0.1 TH/MM3 Basophils # (Auto) 0.0 TH/MM3 CBC Comment DIFF FINAL Differential Comment Blood Urea Nitrogen 12 MG/DL Creatinine 0.80 MG/DL Random Glucose 101 MG/DL Total Protein 7.5 GM/DL Albumin 3.3 GM/DL Calcium Level 8.9 MG/DL Alkaline Phosphatase 174 U/L Aspartate Amino Transf (AST/SGOT) 28 U/L Alanine Aminotransferase (ALT/SGPT) 15 U/L Total Bilirubin 0.3 MG/DL Sodium Level 139 MEQ/L Potassium Level 3.6 MEQ/L Chloride Level 102 MEQ/L Carbon Dioxide Level 30.4 MEQ/L Anion Gap 7 MEQ/L Estimat Glomerular Filtration Rate 84 ML/MIN Troponin I 0.30 NG/ML 0.36 NG/ML Lipase 191 U/L Total Creatine Kinase 121 U/L Creatine Kinase MB 7.0 NG/ML Creatine Kinase MB % % Assessment and Plan Problem List: (1) Troponin level elevated ICD Codes: R74.8 - Abnormal levels of other serum enzymes Plan: Patient had extremely high BP now controlled. May represent subendocardial ischemia (2) Thoracic aneurysm ICD Codes: I71.2 - Thoracic aneurysm Status: Acute Plan: Evaluated at -F repair risk prohibitive (3) Hx of abdominal aortic aneurysm ICD Codes: Z86.79 - Hx of abdominal aortic aneurysm Status: Acute (4) Accelerated hypertension ICD Codes: I10 - Essential (primary) hypertension Status: Acute Plan: controlled (5) Chest pain ICD Codes: R07.9 - Chest pain Status: Acute Plan: resolved. (6) Frail elderly ICD Codes: R54 - Age-related physical debility Plan: Discussed med tx, SPECT or cardiac cath. risks discussed. Medical therapy chosen Jonathan Rivera MD January 28, 2018 20:46
--- NOTE | 2018-01-28 22:24 | EKG ---
Date Performed: 01/27/2018 Time Performed: 22:09:50 PTAGE: 78 years EKG: Sinus rhythm LEFT ATRIAL ENLARGEMENT POSSIBLE RIGHT VENTRICULAR CONDUCTION DELAY LEFT VENTRICULAR HYPERTROPHY AND ST-T CHANGE ABNORMAL ECG PREVIOUS TRACING : 01/27/2018 16.55 Since the previous tracing, no significant change noted DOCTOR: Silas Martin Interpretating Date/Time 01/28/2018 22:22:12
--- NOTE | 2018-01-28 22:31 | EKG ---
Date Performed: 01/27/2018 Time Performed: 16:55:58 PTAGE: 78 years EKG: Sinus rhythm LEFT ATRIAL ENLARGEMENT POSSIBLE RIGHT VENTRICULAR CONDUCTION DELAY POSSIBLE LEFT VENTRICULAR HYPERT ROPHY ST DEVIATION AND MARKED T-WAVE ABNORMALITY, CONSIDER ANTEROLATERAL ISCHEMIA ABNORMAL ECG PREVIOUS TRACING : 01/27/2018 10.27 Since the previous tracing, no significant change noted DOCTOR: Silas Martin Interpretating Date/Time 01/28/2018 22:29:41
[2018-01-28] MEDS: ATORVASTATIN 40 MG TAB PO SCH (23:08)
[2018-01-28] MEDS: DONEPEZIL HCL 5 MG TAB PO SCH (23:09)
[2018-01-29 03:05] VITALS: BP 118/82; PULSE 85; RESP 18; TEMP 98.5; O2SAT 95
[2018-01-29 03:31] VITALS: PULSE 79
[2018-01-29 06:15] VITALS: BP 123/85; PULSE 88
[2018-01-29] MEDS: hydrALAZINE HCL 50 MG TAB PO SCH ×2 (06:15→13:52)
--- NOTE | 2018-01-29 07:30 | HHI.FF ---
Face to Face Verification Diagnosis: (1) Chest pain (2) Accelerated hypertension (3) Dementia (4) Seizure disorder (5) Thoracic aneurysm (6) Hx of abdominal aortic aneurysm Physical Therapy Order: Evaluate and Treat, Improve ambulation, Strength and gait training Home Health Nursing Order: Medical education Signs/symptoms of disease process Nursing assessment with vital signs I have seen patient Alie Jacobs on 01/29/18. My clinical findings support the need for the requested home health care services because: Deconditioned w/ increased weakness Med compliance is questionable Limited ability to care for self Impaired cognition/judgement I certify that my clinical findings support that this patient is homebound because: Impaired cognitive ability/safety Unsteady gait/balance Unsafe to leave home unassisted Unable to use public transportation Karlene Curtis PA-C January 29, 2018 07:30
[2018-01-29] MEDS ORDERED: HYDR-3800 PO (07:32)
[2018-01-29] MEDS ORDERED: ASPI81 CHEW (07:32)
[2018-01-29] MEDS ORDERED: NIFE90TA2 PO (07:32)
--- NOTE | 2018-01-29 07:33 | HHI.DCPOC ---
Discharge Care Plan Diagnosis: (1) Chest pain (2) HTN (hypertension) (3) Thoracic aneurysm (4) Hx of abdominal aortic aneurysm (5) Seizure disorder (6) GERD (gastroesophageal reflux disease) Goals to Promote Your Health * To prevent worsening of your condition and complications * To maintain your health at the optimal level Directions to Meet Your Goals Take your medications as prescribed Follow your dietary instruction Follow activity as directed Keep your appointments as scheduled Take your immunizations and boosters as scheduled If your symptoms worsen call your PCP, if no PCP go to Urgent Care Center or Emergency Room Smoking is Dangerous to Your Health. Avoid second hand smoke Call the 24-hour hour crisis hotline for domestic abuse at Karlene Curtis PA-C January 29, 2018 07:33
[2018-01-29] MEDS: PANTOPRAZOLE SOD 40 MG DELAYED RELEASE TAB PO SCH (07:56)
[2018-01-29] MEDS: LOSARTAN 50 MG TAB PO SCH (07:56)
[2018-01-29] MEDS: METOPROLOL TARTRATE 25 MG TAB PO SCH (07:56)
[2018-01-29] MEDS: SERTRALINE HCL 50 MG TAB PO SCH (07:56)
[2018-01-29] MEDS: HYDROCHLOROTHIAZIDE 25 MG TAB PO SCH (07:57)
[2018-01-29] MEDS: PHENYTOIN SODIUM 100 MG CAP PO SCH (07:57)
[2018-01-29] MEDS: ASPIRIN 81 MG CHEW TAB CHEW SCH (07:57)
[2018-01-29] MEDS: NIFEdipine 90 MG SUSTAINED RELEASE TAB PO SCH (07:57)
[2018-01-29] MEDS: SODIUM CHLORIDE 0.9% FLUSH 10 ML FLUSH IV FLUSH SCH (07:58)
[2018-01-29 08:26] VITALS: BP_SYST 107; BP_SYST 117; BP_DIAS 68; BP_DIAS 72; PULSE 91; RESP 16; TEMP 97.8; O2SAT 96
--- NOTE | 2018-01-29 08:30 | HHI.PR ---
Subjective Remarks Follow up for chest pain, elevated troponin, uncontrolled hypertension. The patient reports feeling better today. Denies any chest pains or shortness of breath. She states her upper abdomen is just sore but overall improved. Denies any nausea/vomiting. She is tolerating oral intake. She is looking forward to going home today, agrees to [facility] arrangements. Denies any other medical complaints at this time. Objective Vitals Vital Signs Date Time Temp Pulse Resp B/P (MAP) Pulse Ox O2 Delivery O2 Flow Rate FiO2 01/29/18 08:26 97.8 91 16 107/68 (81) 96 117/72 (87) 01/29/18 06:15 88 123/85 (98) 01/29/18 03:31 79 01/29/18 03:05 98.5 85 18 118/82 (94) 95 01/28/18 23:06 110/75 (87) 01/28/18 23:00 99.6 104 16 97/76 (83) 98 01/28/18 14:03 18 01/28/18 12:22 98.1 73 18 110/70 (83) 98 I/O 01/28/18 01/28/18 01/28/18 01/29/18 01/29/18 01/29/18 07:00 15:00 23:00 07:00 15:00 23:00 Intake Total 720 ml Balance 720 ml Intake Oral 720 ml # Voids 2 Result Diagram: 01/28/18 0202 01/28/18 0202 Imaging Last Impressions Chest X-Ray 01/27/18 1031 Signed Impressions: Service Date/Time: Saturday, January 27, 2018 11:10 - CONCLUSION: No acute disease. Boom Tatum MD Aorta CTA 01/27/18 1031 Signed Impressions: Service Date/Time: Saturday, January 27, 2018 12:25 - CONCLUSION: 1. The examination demonstrates aneurysmal dilation of the ascending aorta aortic arch and descending thoracic aorta. The aorta at its widest point in the arch measures approximately 3.8 cm. This is only slightly larger than seen on previous exam it should be noted on the prior exam there appears to have been an acute thrombosis of a dissection flap. This has significantly improved in appearance with partial healing. The proximal descending thoracic aorta is at the upper limits of normal in caliber measuring 2.7 cm. 2. The distal thoracic aorta demonstrates a focal area of contrast extending out into the mural thrombus. This appears to be feeding the origin of an intercostal artery. There was contrast in this area on the previous study of 2014 however, it appears more organized and slightly larger on today's exam. 3. The distalmost portion of thoracic aorta is aneurysmal. Maximum dimension is essentially at the diaphragmatic hiatus. The aorta measures 5.4 centimeters at this level. This is similar in size compared to previous. 4. The abdominal aorta is aneurysmal in its distal segment measuring 5.6 cm. This has enlarged when compared to previous. The aorta measured 3.7 cm at this location on the prior. 5. 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 The right measures approximately 2.5 cm. The iliac circulation is mildly enlarged compared to previous as well. Maximum dimension on the left was 2.2 cm on the prior. Tong Thomas MD Objective Remarks GENERAL: Well-nourished, well-developed thin female patient in [facility]. SKIN: Warm and dry. No rash. HEENT: Normocephalic. Atraumatic. Pupils equal and round. Mucous membranes pink and moist. NECK: Supple. Trachea midline. CARDIOVASCULAR: Regular rate and rhythm. No murmur appreciated. RESPIRATORY: No accessory muscle use. Clear to auscultation. Breath sounds equal bilaterally. GASTROINTESTINAL: Abdomen soft, nondistended, nontender today. Normoactive bowel sounds x4. Pulsatile abdomen. MUSCULOSKELETAL: No obvious deformities. Extremities without clubbing, cyanosis , or edema. NEUROLOGICAL: Awake and alert. No obvious cranial nerve deficits. Motor grossly within normal limits. Moving all extremities spontaneously. Normal speech. PSYCHIATRIC: Appropriate mood and affect; insight and judgment normal. Procedures None. Medications and IVs Current Medications Medications (Trade) Dose Ordered Sig/Hernandez Route Start Time Stop Time Status Last Admin (NS Flush) 2 ml UNSCH PRN IVF 01/27/18 10:45 01/27/18 10:41 (NS Flush) 2 ml UNSCH PRN IV FLUSH 01/27/18 14:45 (NS Flush) 2 ml BID IV FLUSH 01/27/18 21:00 01/29/18 07:58 (Narcan Inj) 0.4 mg UNSCH PRN IV PUSH 01/27/18 14:45 (Milk Of Magnesia Liq) 30 ml Q12H PRN PO 01/27/18 14:45 (Senokot) 17.2 mg Q12H PRN PO 01/27/18 14:45 (Dulcolax Supp) 10 mg DAILY PRN RECTAL 01/27/18 14:45 (Lactulose Liq) 30 ml DAILY PRN PO 01/27/18 14:45 (Vasotec Inj) 1.25 mg Q6H PRN IV PUSH 01/27/18 14:45 (Proair Hfa Inh) 2 puff Q4HR PRN INH 01/27/18 17:30 (Lipitor) 40 mg HS PO 01/27/18 21:00 01/28/18 23:08 (Aricept) 5 mg HS PO 01/27/18 21:00 01/28/18 23:09 (Hydrodiuril) 25 mg DAILY PO 01/28/18 09:00 01/29/18 07:57 (Cozaar) 50 mg DAILY PO 01/28/18 09:00 01/29/18 07:56 (Lopressor) 25 mg BID PO 01/27/18 21:00 01/29/18 07:56 (Dilantin) 100 mg BID PO 01/27/18 21:00 01/29/18 07:57 (Zoloft) 50 mg DAILY PO 01/28/18 09:00 01/29/18 07:56 (Protonix) 40 mg DAILY PO 01/28/18 09:00 01/29/18 07:56 (Apresoline) 50 mg Q8HR PO 01/27/18 17:45 01/29/18 06:15 (Procardia Xl) 90 mg DAILY PO 01/28/18 09:00 01/29/18 07:57 (Aspirin Chew) 81 mg DAILY CHEW 01/28/18 09:00 01/29/18 07:57 (Morphine Inj) 2 mg Q4H PRN IV PUSH 01/28/18 11:45 A/P Assessment and Plan 78-year-old female with history of HTN, abdominal and thoracic aortic aneurysms , COPD, GERD, seizure disorder, depression, presents with intermittent chest pains. Unstable angina, possible NSTEMI; patient with atypical chest pains 2 weeks, suspect unstable angina, patient is female with borderline diabetes. -With history of thoracic and abdominal aneurysms, checked aorta CTA which showed slight enlargement of a sending aortic aneurysm, however improved and healing thrombosis and old dissection; multiple known aneurysms throughout thorax, abdomen, iliac arteries, all slightly enlarged compared to previous exam in 2015 but no acute dissection. -Patient reportedly has been evaluated at [facility] for her aneurysms, told she would likely not survive procedure -Continue on aspirin -Trended troponins, 0.02, 0.02, 0.30, 0.36 and EKG with new T-wave inversion -Cardiology consulted, discussed with Dr. Rivera, recommends medical management and discharge planning with BP controlled. Thoracic/Abdominal/Iliac Aneurysms: chronic -Aorta CTA checked as above, shows gradual enlargements of aneurysms compared to 2015 -Previously evaluated by [facility], not surgical candidate -Control BP, much improved Accelerated hypertension: With BP 180s/120s on admission. Question compliance with medications. -Restart home blood pressure meds including metoprolol, losartan, HCTZ -Added procardia 90mg daily and hydralazine 50mg q8h -BP much improved, currently 100s/60s, stable for discharge Dementia: Chronic -continue donepezil. Medication noncompliance: Secondary to dementia -Stressed importance of medications Seizure disorder. Chronic. -Continue phenytoin. Depression: Chronic. -Continue Zoloft. -Will hold off on trazodone due to hypertension. GERD: Chronic. -Continue PPI. Tobacco abuse: Chronic -Patient counseled on cessation. Chronic ongoing weight loss: This could be secondary to dementia. -Tobacco cessation could be helpful. -Encourage p.o. intake. Hyperlipidemia: chronic -continue patient's statin DVT Prophylaxis: SCDs Discharge Planning Discharge patient to home with [facility] Condition on discharge: Stable Heart Healthy Diet as tolerated Ad Sona activity Rx written: aspirin 81mg daily, hydralazine 50mg q8h, nifedipine ER 90mg daily, protonix 40mg daily Follow-up with primary care physician within 2-3days, Follow up with cardiology in 1 week. Karlene Curtis PA-C January 29, 2018 08:30
[2018-01-29] MEDS ORDERED: PANT40TA3 PO (10:56)
[2018-01-29 12:51] VITALS: BP_SYST 114; BP_SYST 115; BP_DIAS 75; BP_DIAS 80; PULSE 81; RESP 16; TEMP 98.6; O2SAT 98
== END 2018-01-29 17:58 | disposition home health service (06) | DRG 313 ==
LOC: NEPC 09:59 → NEDA 14:34 → UNDOADMIN 14:34 → NEDA 14:44 → INTOOBSV 14:44 → NEDA 16:19 → NEPGCP 16:19 → OBSVTOIN 01-28 09:46
PROVIDERS: ADMIT Hospitalist; ATTEND Hospitalist
DX: R07.89 Other chest pain (principal); I25.2 Old myocardial infarction; I11.9 Hypertensive heart disease without heart failure; I71.2 Thoracic aortic aneurysm, without rupture; F03.90 Unspecified dementia, unspecified severity, without behavioral disturbance, psychotic disturbance, mood disturbance, and anxiety; J44.9 Chronic obstructive pulmonary disease, unspecified; G40.909 Epilepsy, unspecified, not intractable, without status epilepticus; F32.9 Major depressive disorder, single episode, unspecified; K21.9 Gastro-esophageal reflux disease without esophagitis; F17.210 Nicotine dependence, cigarettes, uncomplicated; E78.5 Hyperlipidemia, unspecified; R73.03 Prediabetes; R54 Age-related physical debility; R63.4 Abnormal weight loss; Z86.79 Personal history of other diseases of the circulatory system; Z91.14 Patient's other noncompliance with medication regimen; Z90.710 Acquired absence of both cervix and uterus; Z88.6 Allergy status to analgesic agent; Z88.5 Allergy status to narcotic agent; Z88.8 Allergy status to other drugs, medicaments and biological substances
CPT/HCPCS: 71045; 71275; 74174; 80053; 82550; 82552; 83690; 83735; 84484; 85025; 85610; 85730; 93005; J2270; Q9967

== ENCOUNTER 2018-02-01 09:18 | Inpatient (IN) | payer OTHER, MEDICARE ==
[~2018-02-01] VITALS: Ht 165.1 cm; Wt 39.5 kg
[2018-02-01] VITALS (18 sets, daily range): BP systolic 81–123; BP diastolic 44–69; PULSE 70–103; RESP 15–27; TEMP 97.6–98.3; O2SAT 97–99
[~2018-02-01 09:18] MED LIST changes: +ASPI81 CHEW; -ASPI81TA11 PO; +ATOR40TA16 PO; -CENTTAB9 PO; +CHOL1CAP26 PO; -DILA100C PO; -DONE5TAB14 PO; +DONE5TAB7 PO; -HCTZ25 PO; +HYDR-3800 PO; -HYDR10TA23 PO; +HYDR25TA5 PO; -LOSA50 PO; +LOSA50TA PO; +METO25TA3 PO; -METO50TA PO; -MEVA40TA6 PO; -NIFE90 PO; +NIFE90TA2 PO; -OMEP20TA39 PO; +PANT40TA3 PO; +PHEN100C PO; -POTA-267 PO; +SERT-132 PO; -TIOT18I INH; +TRAZ50TA12 PO; +VENTAER INH; +VITACAP9
[2018-02-01] MEDS ORDERED: SODIUM CHLORIDE 0.9% FLUSH 10 ML FLUSH IVF PRN (09:30)
[2018-02-01] MEDS ORDERED: SODIUM CHLORID 0.9% 500 ML INJ 500 ML IV ONE (09:30)
[2018-02-01] MEDS ORDERED: ONDANSETRON ODT 4 MG TAB PO ONE (10:00)
[2018-02-01 10:12] LABS: BASOPHIL % 0.6 % (0.0-2.0); EOSINOPHIL % 0.5 % (0.0-4.0); HEMATOCRIT 41.2 % (35.0-46.0); HEMOGLOBIN 13.7 GM/DL (11.6-15.3); LYMPH % 28.1 % (9.0-44.0); LYMPHOCYTE # 1.5 TH/MM3 (1.0-4.8); MEAN CELL VOLUME 97.8 FL (80.0-100.0); MEAN CORPUSCULAR HEMOGLOBIN 32.7 PG (27.0-34.0); MEAN CORPUSCULAR HGB CONC 33.4 % (32.0-36.0); MEAN PLATELET VOLUME 9.9 FL (7.0-11.0); MONO % 12.6 % (0.0-8.0); MONOCYTE # 0.7 TH/MM3 (0-0.9); NEUT % 58.2 % (16.0-70.0); PLATELET COUNT 109 TH/MM3 (150-450); RED BLOOD COUNT 4.21 MIL/MM3 (4.00-5.30); RED CELL DISTRIBUTION WIDTH 13.6 % (11.6-17.2); WHITE BLOOD COUNT 5.2 TH/MM3 (4.0-11.0)
[2018-02-01] MEDS ORDERED: IOHEXOL 350 MG/ML 10 ML VIAL (for RAD DIAG) IVCONTRAST ONE (10:30)
--- NOTE | 2018-02-01 10:55 | RADRPT ---
EXAM DATE/TIME: 02/01/2018 10:03 [facility] COMPARISON: CTA THORACIC ABDOMINAL AORTA W 3D RECON, January 27, 2018, 12:25. INDICATIONS : Chest pain today. IV CONTRAST: 96 cc Omnipaque 350 (iohexol) IV RADIATION DOSE: 2.28 CTDIvol (mGy) MEDICAL HISTORY : Cardiovascular disease. Hypertension. Seizures.diabetes SURGICAL HISTORY : Hysterectomy. Cholecystectomy. ENCOUNTER: Initial ACUITY: 1 day PAIN SCALE: 7/10 LOCATION: Bilateral chest TECHNIQUE: Volumetric scanning was performed using a multi-row detector CT scanner. The data was post processed with a variety of visualization algorithms including full volume maximum intensity projection, multi -planar sliding thin slab reformation, curved planar reformation, and surface rendering techniques. Using automated exposure control and adjustment of the mA and/or kV according to patient size, radiat ion dose was kept as low as reasonably achievable to obtain optimal diagnostic quality images. DICOM format image data is available electronically for review and comparison. FINDINGS: Comparison is made to CTA performed 01/27/18. The prior CTA had demonstrated aneurysmal dilatation of the ascending aorta and descending aorta with partial healing of an aneurysmal dissection flap desce nding aorta, contrast extension into mural thrombus of the distal thoracic aorta, abdominal aortic an eurysm measuring up to 5.6 cm, an aneurysmal dilatation of the bilateral iliac arteries, left greater than right. Absent flow in the left iliac aneurysm with reconstitution of flow at the level of the superficial femoral. There has been no significant interval change in these multiple findings when c ompared to the prior CTA.. CONCLUSION: No significant change in the thoracic aortic, abdominal aortic, and iliac artery aneurysms with mural thrombus and dissection flap when compared to CTA performed 5 days ago. Please refer to the report of the prior CTA for a detailed description of the findings. Carson Ruiz MD on February 01, 2018 at 10:42 Board Certified Radiologist. This report was verified electronically.
[2018-02-01 11:02] LABS: INTERNATIONAL NORMALIZED RATIO 1.2 RATIO
[2018-02-01 11:18] LABS: AST (GOT) 31 U/L (15-37); BICARBONATE 26.4 MEQ/L (21.0-32.0); BLOOD UREA NITROGEN 19 MG/DL (7-18); CALCIUM 8.4 MG/DL (8.5-10.1); CHLORIDE 100 MEQ/L (98-107); CREATININE 1.08 MG/DL (0.50-1.00); GLOMERULAR FILTRATION RATE 60 ML/MIN (>89); GLUCOSE,RANDOM 101 MG/DL (74-106); SODIUM (NA) 136 MEQ/L (136-145)
--- NOTE | 2018-02-01 11:23 | RADRPT ---
EXAM DATE/TIME: 02/01/2018 10:19 [facility] COMPARISON: CHEST SINGLE AP, January 27, 2018, 11:10. INDICATIONS : Chest pain. MEDICAL HISTORY : Dementia. Cardiovascular disease Hypertension.Abdominal aneurysm SURGICAL HISTORY : Hysterectomy. ENCOUNTER: Initial ACUITY: 1 day PAIN SCORE: 5/10 LOCATION: Bilateral chest FINDINGS: The lungs are symmetrically aerated and clear, unchanged in configuration from prior exam. The heart is stable in configuration. Both hemidiaphragms are well delineated. In configuration to the conto ur abnormality in the left lower chest characteristic of thoracic aortic aneurysm. No evidence of pn eumothorax. CONCLUSION: No acute findings in the chest. No evidence of pleural effusion or pneumothorax. Carson Ruiz MD on February 01, 2018 at 11:20 Board Certified Radiologist. This report was verified electronically.
[2018-02-01 11:24] LABS: ALKALINE PHOSPHATASE 154 U/L (45-117); ALT (GPT) 17 U/L (10-53); TOTAL BILIRUBIN ADULT 0.3 MG/DL (0.2-1.0); TOTAL PROTEIN 6.7 GM/DL (6.4-8.2); TROPONIN I 0.45 NG/ML (0.02-0.05)
[2018-02-01] MEDS ORDERED: HEPARIN-D5W 25,000 U/250 ML 250 ML IV PRN ×2 (12:00→12:30)
[2018-02-01] MEDS ORDERED: ASPIRIN 81 MG CHEW TAB CHEW ONE (12:00)
--- NOTE | 2018-02-01 12:50 | PD ---
HPI Chief Complaint: Chest Pain Time Seen by Provider: 09:19 Travel History International Travel<30 days: No Contact w/Intl Traveler<30days: No Traveled to known affect area: No History of Present Illness HPI Patient is a 78-year-old female who comes in complaining in. She was here a few days ago, discharged home, after being evaluated for an elevated troponin. She says she was feeling better until last night when the chest pain started again. She does have history of thoracic and abdominal aortic aneurysm. She was told by several surgeons that the aneurysm is inoperable. She says the pain is substernal and goes down into her abdomen. She also complains of paresthesias in her left foot. She denies any shortness of breath. She denies any cough or cold symptoms. Severity is moderate. PFSH Past Medical History Hx Anticoagulant Therapy: No Arthritis: Yes Asthma: No Autoimmune Disease: No Blood Disorders: No Anxiety: Yes Depression: No Heart Rhythm Problems: Yes Cancer: No Cardiac Catheterization: No Cardiovascular Problems: Yes High Cholesterol: Yes Chemotherapy: No Chest Pain: Yes Congestive Heart Failure: No COPD: Yes Cerebrovascular Accident: No Coronary Artery Disease: Yes Dementia: Yes Diabetes: Yes (borderline) Diminished Hearing: Yes Endocrine: Yes Gastrointestinal Disorders: Yes GERD: No Glaucoma: No Genitourinary: No Headaches: No Hepatitis: No Hiatal Hernia: No Hypertension: Yes Immune Disorder: No Implanted Vascular Access Dvce: No Kidney Stones: No Musculoskeletal: Yes Neurologic: Yes (aneurysm) Psychiatric: No Reproductive: No Respiratory: Yes (emphysema) Migraines: No Myocardial Infarction: Yes Pneumonia: Yes Radiation Therapy: No Renal Failure: Yes (CKD 3, per medical record from DR office) Seizures: Yes Sickle Cell Disease: No Sleep Apnea: No Thyroid Disease: Yes Ulcer: No PNEUMOCCOCAL Vaccine (Year): 1 ?: Not Menopausal: Yes : 2 Para: 2 Past Surgical History Abdominal Surgery: Yes AICD: No Appendectomy: No Arteriovenous Shunt: No Cardiac Surgery: Yes (aneurysm) Cholecystectomy: Yes Coronary Artery Bypass Graft: No Ear Surgery: No Endocrine Surgery: No Eye Surgery: No Genitourinary Surgery: No Gynecologic Surgery: Yes (hysterectomy) Hysterectomy: Yes Insulin Pump: No Joint Replacement: No Neurologic Surgery: Yes (BRAIN SURGERY DUE TO ANEURYSM) Oral Surgery: No Pacemaker: No Thoracic Surgery: No Other Surgery: Yes Social History Alcohol Use: No Tobacco Use: No (quit smoking a week ago) Substance Use: No Allergies-Medications (Allergen,Severity, Reaction): Coded Allergies: *MDRO Multi-Drug Resistant Organism (Verified Allergy, Unknown, 01/27/18) C-diff 12/2013 acetaminophen (Verified Allergy, Unknown, 01/27/18) codeine (Verified Allergy, Unknown, 01/27/18) MRI PRECAUTION (Verified Adverse Reaction, Severe, ANEURYSM CLIP-(JLT) 07/06 DR. HERNANDEZ, 01/27/18) Reported Meds & Prescriptions Reported Meds & Active Scripts Active Pantoprazole (Pantoprazole Sodium) 40 Mg Tab 40 Mg PO DAILY 30 Days Nifedipine ER (Nifedipine) 90 Mg Tab 90 Mg PO DAILY 30 Days Hydralazine HCl 50 Mg Tablet 50 Mg PO Q8HR 30 Days Reported Vitamin B Complex-C (B Complex W/ C) 1 Cap Cap Atorvastatin (Atorvastatin Calcium) 40 Mg Tab 40 Mg PO HS Decara (Cholecalciferol) 50,000 Unit Cap 50,000 Units PO Q7D Trazodone (Trazodone HCl) 50 Mg Tab 2 Tab PO HS Metoprolol Tartrate 25 Mg Tab 25 Mg PO BID Hydrochlorothiazide 25 Mg Tab 25 Mg PO DAILY Phenytoin Extended 100 Mg Cap 100 Mg PO BID Ventolin Hfa 18 GM Inh (Albuterol Sulfate) 90 Mcg/Act Aer 2 Puff INH Q4-6H PRN Sertraline (Sertraline HCl) 50 Mg Tab 50 Mg PO DAILY Losartan (Losartan Potassium) 50 Mg Tab 50 Mg PO DAILY Donepezil 5 Mg Tab 5 Mg PO HS Review of Systems Except as stated in HPI: all other systems reviewed are Neg General / Constitutional: No: Fever, Chills HENT: No: Headaches, Lightheadedness Cardiovascular: Positive: Chest Pain or Discomfort Respiratory: No: Shortness of Breath Gastrointestinal: Positive: Nausea, Vomiting, Abdominal Pain Musculoskeletal: No: Myalgias, Edema Neurologic: Positive: Paresthesia Physical Exam Narrative GENERAL: Awake and alert, in no acute distress. SKIN: Focused skin assessment warm/dry. No wounds or signs of infection. HEAD: Atraumatic. Normocephalic. EYES: Pupils equal and round. No scleral icterus. No injection or drainage. ENT: Mucous membranes pink and moist. NECK: Trachea midline. No JVD. CARDIOVASCULAR: Regular rate and rhythm. No murmur appreciated. RESPIRATORY: No accessory muscle use. Clear to auscultation. Breath sounds equal bilaterally. GASTROINTESTINAL: Abdomen soft, non-tender, nondistended. MUSCULOSKELETAL: No obvious deformities. No clubbing. No cyanosis. No edema. Pedal pulses palpable. NEUROLOGICAL: Awake and alert. No obvious cranial nerve deficits. Motor grossly within normal limits. Normal speech. PSYCHIATRIC: Appropriate mood and affect; insight and judgment normal. Data Data Last Documented VS Vital Signs Date Time Temp Pulse Resp B/P (MAP) Pulse Ox O2 Delivery O2 Flow Rate FiO2 02/01/18 11:07 98 23 101/63 (76) 97 Room Air 02/01/18 09:25 97.9 Orders Orders Electrocardiogram (02/01/18:20) Ckmb (Isoenzyme) Profile (02/01/18 09:20) Complete Blood Count With Diff (02/01/18 09:20) Comprehensive Metabolic Panel (02/01/18:20) Prothrombin Time / Inr (Pt) (02/01/18:20) Act Partial Throm Time (Ptt) (02/01/18 09:20) Troponin I (02/01/18 09:20) Chest, Single Ap (02/01/18 09:20) Ecg Monitoring (02/01/18 09:20) Bilateral Bp Monitoring (02/01/18 09:20) Iv Access Insert/Monitor (02/01/18 09:20) Oximetry (02/01/18 09:20) Oxygen Administration (02/01/18 09:20) Sodium Chloride 0.9% Flush (Ns Flush) (02/01/18 09:30) Sodium Chlorid 0.9% 500 Ml Inj (Ns 500 M (02/01/18 09:30) Ondansetron Odt (Zofran Odt) (02/01/18 10:00) Cta Thor Abd Aorta W Iv C W3d (02/01/18 10:01) Type And Screen (02/01/18 10:20) Iohexol 350 Inj (Omnipaque 350 Inj) (02/01/18 10:30) CKMB (02/01/18 10:43) CKMB% (02/01/18 10:43) Heparin Inj (Heparin Inj) (02/01/18 18:00) Heparin Inj (Heparin Inj) (02/01/18 18:00) Heparin-D5w 25,000 U/250 Ml (Heparin-D5w (02/01/18 12:00) Cbc No Diff, Includes Plts (02/04/18 06:00) Act Partial Throm Time (Ptt) (02/01/18 18:59) Occult Blood (Hemoccult) Stool (02/01/18 11:59) Aspirin Chew (Aspirin Chew) (02/01/18 12:00) Consult Vascular Surgery (02/01/18 ) (Hub Use Only)Inp Phy Cons/Ref (02/01/18 ) Heparin-D5w 25,000 U/250 Ml (Heparin-D5w (02/01/18 12:30) Electrocardiogram (02/01/18 ) Troponin I (02/01/18 12:40) Admit Order (Ed Use Only) (02/01/18 ) Labs Laboratory Tests Test 02/01/18 09:25 02/01/18 10:34 02/01/18 10:43 02/01/18 12:41 White Blood Count 5.2 TH/MM3 Red Blood Count 4.21 MIL/MM3 Hemoglobin 13.7 GM/DL Hematocrit 41.2 % Mean Corpuscular Volume 97.8 FL Mean Corpuscular Hemoglobin 32.7 PG Mean Corpuscular Hemoglobin Concent 33.4 % Red Cell Distribution Width 13.6 % Platelet Count 109 TH/MM3 Mean Platelet Volume 9.9 FL Neutrophils (%) (Auto) 58.2 % Lymphocytes (%) (Auto) 28.1 % Monocytes (%) (Auto) 12.6 % Eosinophils (%) (Auto) 0.5 % Basophils (%) (Auto) 0.6 % Neutrophils # (Auto) 3.0 TH/MM3 Lymphocytes # (Auto) 1.5 TH/MM3 Monocytes # (Auto) 0.7 TH/MM3 Eosinophils # (Auto) 0.0 TH/MM3 Basophils # (Auto) 0.0 TH/MM3 CBC Comment DIFF FINAL Differential Comment Prothrombin Time 12.0 SEC Prothromb Time International Ratio 1.2 RATIO Activated Partial Thromboplast Time 25.1 SEC Blood Urea Nitrogen 19 MG/DL Creatinine 1.08 MG/DL Random Glucose 101 MG/DL Total Protein 6.7 GM/DL Albumin 3.0 GM/DL Calcium Level 8.4 MG/DL Alkaline Phosphatase 154 U/L Aspartate Amino Transf (AST/SGOT) 31 U/L Alanine Aminotransferase (ALT/SGPT) 17 U/L Total Bilirubin 0.3 MG/DL Sodium Level 136 MEQ/L Potassium Level 3.5 MEQ/L Chloride Level 100 MEQ/L Carbon Dioxide Level 26.4 MEQ/L Anion Gap 10 MEQ/L Estimat Glomerular Filtration Rate 60 ML/MIN Total Creatine Kinase 126 U/L Creatine Kinase MB 8.0 NG/ML Troponin I 0.45 NG/ML 0.48 NG/ML MDM Medical Decision Making Medical Screen Exam Complete: Yes Emergency Medical Condition: Yes Medical Record Reviewed: Yes Interpretation(s) ECG shows normal sinus rhythm, ST depression in the lateral leads, unchanged from previous. Differential Diagnosis ACS versus NSTEMI versus STEMI versus aortic dissection Narrative Course Patient is a 78-year-old female comes in complaining of chest pain with abdominal pain and nausea and vomiting. On arrival, she was hypotensive. Given a bolus of 500 mL's of fluid. IV established, labs sent. Patient taken for repeat scan of her aorta. The scan is unchanged from her previous. Last 24 hours Impressions Aorta CTA 02/01/18 1001 Signed Impressions: Service Date/Time: Thursday, February 01, 2018 10:03 - CONCLUSION: No significant change in the thoracic aortic, abdominal aortic, and iliac artery aneurysms with mural thrombus and dissection flap when compared to CTA performed 5 days ago. Please refer to the report of the prior CTA for a detailed description of the findings. Carson Ruiz MD Chest X-Ray 02/01/18 0920 Signed Impressions: Service Date/Time: Thursday, February 01, 2018 10:19 - CONCLUSION: No acute findings in the chest. No evidence of pleural effusion or pneumothorax. Carson Ruiz MD Troponin is 0.45. This is elevated from a few days ago. I spoke with Dr. Zendejas of cardiology, he suggests anticoagulation. I spoke with Dr. Abraham who is comfortable with heparin in the setting of her aortic aneurysm. Patient given aspirin and started on heparin. She will be admitted for further management. Diagnosis Primary Impression: NSTEMI (non-ST elevated myocardial infarction) Admitting Information Admitting Physician Requests: Admit Kaylin De La Torre MD February 01, 2018 12:50
--- NOTE | 2018-02-01 13:59 | HHI.HP ---
HPI Service [facility] Hospitalists Primary Care Physician Unknown Admission Diagnosis NSTEMI Diagnoses: Chief Complaint: Chest pain Travel History International Travel<30 Days: No Contact w/Intl Traveler <30 Da: No Traveled to Known Affected Are: No History of Present Illness This is a 78-year-old female with past medical history significant for COPD, smoking, CAD, history of thoracic and aortic aneurysm who presents to [facility] complaining of chest pain. The patient had been recently discharged from this institution on 01/29/2018 after being evaluated for chest pain and elevated troponins. At the time the patient was seen by Dr. Rivera who thought that possibly elevated troponin level was secondary to subendocardial ischemia. At the time the toe was discussed with the patient and given the option of medical therapy, SPECT or cardiac catheterization. As per medical records medical therapy was chosen. The patient presents with complaints of chest pain, substernal, rated as 10/10 intensity, nonradiating started yesterday morning and continue through the night. Denies palpitations, denies diaphoresis. The patient complains of nausea and vomiting several times. The patient also complains of periumbilical pain which is 9/10 intensity. Patient states there is no aggravating or alleviating factor. Review of Systems As per HPI, other systems reviewed by me negative. Past Family Social History Past Medical History Hypertension COPD Abdominal and thoracic aortic aneurysm Seizure disorder Depression GERD Past Surgical History Left forearm surgery Brain surgery for aneurysm over 15 years ago. Hysterectomy Reported Medications Reported Meds & Active Scripts Active Pantoprazole (Pantoprazole Sodium) 40 Mg Tab 40 Mg PO DAILY 30 Days Nifedipine ER (Nifedipine) 90 Mg Tab 90 Mg PO DAILY 30 Days Hydralazine HCl 50 Mg Tablet 50 Mg PO Q8HR 30 Days Reported Vitamin B Complex-C (B Complex W/ C) 1 Cap Cap Atorvastatin (Atorvastatin Calcium) 40 Mg Tab 40 Mg PO HS Decara (Cholecalciferol) 50,000 Unit Cap 50,000 Units PO Q7D Trazodone (Trazodone HCl) 50 Mg Tab 2 Tab PO HS Metoprolol Tartrate 25 Mg Tab 25 Mg PO BID Hydrochlorothiazide 25 Mg Tab 25 Mg PO DAILY Phenytoin Extended 100 Mg Cap 100 Mg PO BID Ventolin Hfa 18 GM Inh (Albuterol Sulfate) 90 Mcg/Act Aer 2 Puff INH Q4-6H PRN Sertraline (Sertraline HCl) 50 Mg Tab 50 Mg PO DAILY Losartan (Losartan Potassium) 50 Mg Tab 50 Mg PO DAILY Donepezil 5 Mg Tab 5 Mg PO HS Allergies: Coded Allergies: *MDRO Multi-Drug Resistant Organism (Verified Allergy, Unknown, 01/27/18) C-diff 12/2013 acetaminophen (Verified Allergy, Unknown, 01/27/18) codeine (Verified Allergy, Unknown, 01/27/18) MRI PRECAUTION (Verified Adverse Reaction, Severe, ANEURYSM CLIP-(JLT) 07/06 DR. HERNANDEZ, 01/27/18) Active Ordered Medications Current Medications Medications (Trade) Dose Ordered Sig/Hernandez Route Start Time Stop Time Status Last Admin (NS Flush) 2 ml UNSCH PRN IVF 02/01/18 09:30 (Heparin Inj) 5,000 units UNSCH PRN IV PUSH 02/01/18 18:00 (Heparin Inj) 2,500 units UNSCH PRN IV PUSH 02/01/18 18:00 Heparin Sodium/ Dextrose 250 ml @ 4.8 mls/hr TITRATE PRN IV 02/01/18 12:30 02/01/18 12:38 Family History Patient says father had a stroke, mother had a heart problem Social History Patient reports that she smokes 2 cigarettes per day, and has smoked for the past 50 years. Denies any alcohol or illicit drugs. Physical Exam Vital Signs Vital Signs Date Time Temp Pulse Resp B/P (MAP) Pulse Ox O2 Delivery O2 Flow Rate FiO2 02/01/18 11:07 98 23 101/63 (76) 97 Room Air 02/01/18 10:41 98 25 98/53 (68) 99 Room Air 02/01/18 10:28 100 15 98/53 (68) 97 Room Air 02/01/18 09:51 107/57 (74) 02/01/18 09:48 97 02/01/18 09:48 97 Room Air 02/01/18 09:25 97.9 103 23 81/53 (62) 99 Room Air 02/01/18 09:23 100 99 Room Air 02/01/18 09:21 97.9 100 27 81/53 (62 99 Physical Exam GENERAL: This is a well-nourished, well-developed patient, in no apparent distress. SKIN: No rashes, ecchymoses or lesions. Cool and dry. HEAD: Atraumatic. Normocephalic. No temporal or scalp tenderness. EYES: Pupils equal round and reactive. Extraocular motions intact. No scleral icterus. No injection or drainage. ENT: Nose without bleeding, purulent drainage or septal hematoma. Throat without erythema, tonsillar hypertrophy or exudate. Uvula midline. Airway patent. NECK: Trachea midline. No JVD or lymphadenopathy. Supple, nontender, no meningeal signs. CARDIOVASCULAR: Regular rate and rhythm without murmurs, gallops, or rubs. RESPIRATORY: Clear to auscultation. Breath sounds equal bilaterally. No wheezes , rales, or rhonchi. GASTROINTESTINAL: Abdomen soft, non-tender, nondistended. No hepato-splenomegaly , or palpable masses. No guarding. MUSCULOSKELETAL: Extremities without clubbing, cyanosis, or edema. No joint tenderness, effusion, or edema noted. No calf tenderness. Negative Homans sign bilaterally. NEUROLOGICAL: Awake and alert. Cranial nerves II through XII intact. Motor and sensory grossly within normal limits. Five out of 5 muscle strength in all muscle groups. Normal speech. Laboratory Laboratory Tests Test 02/01/18 09:25 02/01/18 10:34 02/01/18 10:43 02/01/18 12:41 White Blood Count 5.2 Red Blood Count 4.21 Hemoglobin 13.7 Hematocrit 41.2 Mean Corpuscular Volume 97.8 Mean Corpuscular Hemoglobin 32.7 Mean Corpuscular Hemoglobin Concent 33.4 Red Cell Distribution Width 13.6 Platelet Count 109 Mean Platelet Volume 9.9 Neutrophils (%) (Auto) 58.2 Lymphocytes (%) (Auto) 28.1 Monocytes (%) (Auto) 12.6 Eosinophils (%) (Auto) 0.5 Basophils (%) (Auto) 0.6 Neutrophils # (Auto) 3.0 Lymphocytes # (Auto) 1.5 Monocytes # (Auto) 0.7 Eosinophils # (Auto) 0.0 Basophils # (Auto) 0.0 CBC Comment DIFF FINAL Differential Comment Prothrombin Time 12.0 Prothromb Time International Ratio 1.2 Activated Partial Thromboplast Time 25.1 Blood Urea Nitrogen 19 Creatinine 1.08 Random Glucose 101 Total Protein 6.7 Albumin 3.0 Calcium Level 8.4 Alkaline Phosphatase 154 Aspartate Amino Transf (AST/SGOT) 31 Alanine Aminotransferase (ALT/SGPT) 17 Total Bilirubin 0.3 Sodium Level 136 Potassium Level 3.5 Chloride Level 100 Carbon Dioxide Level 26.4 Anion Gap 10 Estimat Glomerular Filtration Rate 60 Total Creatine Kinase 126 Creatine Kinase MB 8.0 Troponin I 0.45 Result Diagram: 02/01/1825 02/01/18 1043 Imaging Last Impressions Aorta CTA 02/01/18 1001 Signed Impressions: Service Date/Time: Thursday, February 01, 2018 10:03 - CONCLUSION: No significant change in the thoracic aortic, abdominal aortic, and iliac artery aneurysms with mural thrombus and dissection flap when compared to CTA performed 5 days ago. Please refer to the report of the prior CTA for a detailed description of the findings. Carson Ruiz MD Chest X-Ray 02/01/1820 Signed Impressions: Service Date/Time: Thursday, February 01, 2018 10:19 - CONCLUSION: No acute findings in the chest. No evidence of pleural effusion or pneumothorax. Carson Ruiz MD Images reviewed by me. Caprini VTE Risk Assessment Caprini VTE Risk Assessment: Mod/High Risk (score >= 2) Caprini Risk Assessment Model Point Value = 1 Point Value = 2 Point Value = 3 Point Value = 5 Age 41-60 Minor surgery BMI > 25 kg/m2 Swollen legs Varicose veins or History of unexplained or recurrent spontaneous Oral contraceptives or hormone replacement Sepsis (< 1 month) Serious lung disease, including pneumonia (< 1 month) Abnormal pulmonary function Acute myocardial infarction Congestive heart failure (< 1 month) History of inflammatory bowel disease Medical patient at bed rest Age 61-74 Arthroscopic surgery Major open surgery (> 45 min) Laparoscopic surgery (> 45 min) Malignancy Confined to bed (> 72 hours) Immobilizing plaster cast Central venous access Age >= 75 History of VTE Family history of VTE Factor V Leiden Prothrombin [id number] Lupus anticoagulant Anticardiolipin antibodies Elevated serum homocysteine Heparin-induced thrombocytopenia Other congenital or acquired thrombophilia Stroke (< 1 month) Elective arthroplasty Hip, pelvis, or leg fracture Acute spinal cord injury (< 1 month) Prophylaxis Regimen Total Risk Factor Score Risk Level Prophylaxis Regimen 0-1 Low Early ambulation 2 Moderate Order ONE of the following: *Sequential Compression Device (SCD) *Heparin 5000 units SQ BID 3-4 Higher Order ONE of the following medications: *Heparin 5000 units SQ TID *Enoxaparin/Lovenox 40 mg SQ daily (WT < 150 kg, CrCl > 30 mL/min) *Enoxaparin/Lovenox 30 mg SQ daily (WT < 150 kg, CrCl > 10-29 mL/min) *Enoxaparin/Lovenox 30 mg SQ BID (WT < 150 kg, CrCl > 30 mL/min) AND/OR *Sequential Compression Device (SCD) 5 or more Highest Order ONE of the following medications: *Heparin 5000 units SQ TID (Preferred with Epidurals) *Enoxaparin/Lovenox 40 mg SQ daily (WT < 150 kg, CrCl > 30 mL/min) *Enoxaparin/Lovenox 30 mg SQ daily (WT < 150 kg, CrCl > 10-29 mL/min) *Enoxaparin/Lovenox 30 mg SQ BID (WT < 150 kg, CrCl > 30 mL/min) AND *Sequential Compression Device (SCD) Assessment and Plan Problem List: (1) NSTEMI (non-ST elevated myocardial infarction) ICD Code: I21.4 - Non-ST elevation (NSTEMI) myocardial infarction (2) JULI (acute kidney injury) ICD Code: N17.9 - Acute kidney failure, unspecified (3) Chest pain ICD Code: R07.9 - Chest pain Status: Acute (4) Hx of abdominal aortic aneurysm ICD Code: Z86.79 - Hx of abdominal aortic aneurysm Status: Acute (5) HTN (hypertension) ICD Code: I10 - Hypertension Status: Acute (6) Thoracic aneurysm ICD Code: I71.2 - Thoracic aneurysm Status: Acute (7) COPD (chronic obstructive pulmonary disease) ICD Code: J44.9 - Chronic obstructive pulmonary disease, unspecified Assessment and Plan 78-year-old female with history of HTN, abdominal and thoracic aortic aneurysms , COPD, GERD, seizure disorder, depression, presents with intermittent chest pains. NSTEMI; patient with atypical chest pains 2 weeks, suspect unstable angina, patient is female with borderline diabetes. -With history of thoracic and abdominal aneurysms, checked aorta CTA which showed slight enlargement of a sending aortic aneurysm, however improved and healing thrombosis and old dissection; multiple known aneurysms throughout thorax, abdomen, iliac arteries, all slightly enlarged compared to previous exam in 2015 but no acute dissection. -Patient reportedly has been evaluated at [facility] for her aneurysms, told she would likely not survive procedure -Troponins elevated at 0.45. Patient had a troponin of 0.36 on discharge. Continue to trend troponin. And EKGs. -Cardiology consulted. The case was discussed by ED physician with Dr. Zendejas who recommends inpatient admission and treatment with IV heparin. Thoracic/Abdominal/Iliac Aneurysms: chronic -Aorta CTA checked as above, shows gradual enlargements of aneurysms compared to 2015 -Previously evaluated by [facility], not surgical candidate -Control BP, much improved -Consult vascular surgery. Hypertension: -Patient previously with accelerated hypertension. Now patient's blood pressure is borderline low. Hold all antihypertensive medications. Dementia: Chronic -continue donepezil. Seizure disorder. Chronic. -Continue phenytoin. -Seems stable. Depression: Chronic. -Continue Zoloft. -Will hold off on trazodone due to hypertension. GERD: Chronic. -Continue PPI. Tobacco abuse: Chronic -Patient counseled on cessation. Chronic ongoing weight loss: This could be secondary to dementia. -Tobacco cessation could be helpful. -Encourage p.o. intake. Hyperlipidemia: chronic -continue patient's statin Acute kidney injury -Creatinine elevated up to 1.08. Upon review of records baseline 0.7-0.8. I will start the patient IV fluids and monitor BUN and creatinine. DVT Prophylaxis: SCDs Code Status Full code. Discussed Condition With ED physician, patient Physician Certification 2 Midnight Certification Type: Admission for Inpatient Services Order for Inpatient Services The services are ordered in accordance with Medicare regulations or non- Medicare payer requirements, as applicable. In the case of services not specified as inpatient-only, they are appropriately provided as inpatient services in accordance with the 2-midnight benchmark. Estimated LOS (days): 2 days is the estimated time the patient will need to remain in the hospital, assuming treatment plan goals are met and no additional complications. Post-Hospital Plan: Home Mikey Blackwood MD February 01, 2018 13:59
[2018-02-01] MEDS ORDERED: MORPHINE SULFATE 4 MG/ML INJ IV PUSH PRN (14:00)
[2018-02-01] MEDS ORDERED: SODIUM CHLORIDE 0.9% FLUSH 10 ML FLUSH IV FLUSH PRN (14:00)
[2018-02-01] MEDS ORDERED: ALBUTEROL SULFATE 90 MCG/ACT HFA 8 GM INHALER INH PRN (14:15)
[2018-02-01] MEDS: SODIUM CHLOR 0.9% 1000 ML INJ 1,000 ML IV SCH (15:48)
--- NOTE | 2018-02-01 15:54 | MB ---
cc: Flora Abraham MD DATE: 02/01/2018 REASON FOR CONSULTATION: Thoracic aortic aneurysm. Critical care time 32 minutes. HISTORY OF PRESENT ILLNESS: This 78-year-old female with past history of smoking, COPD, coronary artery disease, who presents to the hospital with a complaint of chest pain. The patient was here with elevated troponins, seen by the software sales consultant, now being admitted. In the process of workup, she is noted to have a thoracic aortic aneurysm and question arises if this has any bearing to the planned therapy for the heart problems. PAST MEDICAL HISTORY: Abdominal and thoracic aneurysms, seizures, depression, COPD, hypertension. PAST SURGICAL HISTORY: Aneurysm clipping about year 1999, hysterectomy and forearm surgery. MEDICATIONS: Can be found in the record. SOCIAL HISTORY: The patient still smokes, does not use drugs and does not drink. PHYSICAL EXAMINATION: GENERAL: Reveals a fairly thin 78-year-old lady, in no acute distress. HEENT: Normocephalic. No trauma to the head. Pupils are equal and reactive, and extraocular muscles appear to be intact. NECK: Bilateral carotid pulses. No bruits. CHEST: The patient has bilateral breath sounds, but these are decreased consistent with severe COPD. A fair amount of loss of musculature and pulmonary cachexia. HEART: Regular rate and rhythm. ABDOMEN: Soft. No rebound, no guarding, no masses. EXTREMITIES: Atrophic atrophy of all 4 extremities. The patient has bilateral femoral, popliteal, dorsalis pedis and posterior tibial pulses. No signs of acute vascular deficit. NEUROLOGIC: She is grossly intact. IMPRESSION AND RECOMMENDATIONS: I reviewed laboratory and diagnostic procedure. This patient is in the process of a cardiac workup. The CT of the chest reveals ascending aortic aneurysm and healed dissection with a thrombus in the thoracic aorta and then abdominal aortic aneurysm about 6 cm in diameter with dilatation also of iliac arteries lower down. The patient is not a candidate for either abdominal or thoracic aortic aneurysm repair by endovascular or open means. She has been evaluated at [facility] for the same since and I agree with the crew up there, patient can be safely anticoagulated and cardiac issue should be treated regardless of this aneurysm. I thank you much for this referral. Flora Abraham MD SJ/TIANA , 03:27 PM , 03:53 PM
[2018-02-01] MEDS: MORPHINE SULFATE 4 MG/ML INJ IV PUSH PRN ×3 (16:24→20:58)
--- NOTE | 2018-02-01 17:51 | EKG ---
Date Performed: 02/01/2018 Time Performed: 12:58:29 PTAGE: 78 years EKG: Sinus rhythm BI-ATRIAL ENLARGEMENT POSSIBLE RIGHT VENTRICULAR CONDUCTION DELAY POSSIBLE LEFT VENTRICULAR HYPERTRO PHY ST DEVIATION AND MODERATE T-WAVE ABNORMALITY, CONSIDER ANTEROLATERAL ISCHEMIA ABNORMAL ECG NO PREVIOUS TRACING DOCTOR: Paul Martinez Interpretating Date/Time 02/01/2018 17:49:55
[2018-02-01] MEDS ORDERED: HEPARIN SODIUM - IV 10,000 UNITS/10 ML VIAL IV PUSH PRN ×2 (18:00)
[2018-02-01 19:24] LABS: TROPONIN I 0.59 NG/ML (0.02-0.05)
[2018-02-01] MEDS: traZODone HCL 100 MG TAB PO SCH (20:18)
[2018-02-01] MEDS: PHENYTOIN SODIUM 100 MG CAP PO SCH (20:18)
[2018-02-01] MEDS: SODIUM CHLORIDE 0.9% FLUSH 10 ML FLUSH IV FLUSH SCH (20:18)
[2018-02-01] MEDS: DONEPEZIL HCL 5 MG TAB PO SCH (20:19)
[2018-02-01] MEDS: ATORVASTATIN 40 MG TAB PO SCH (20:19)
--- NOTE | 2018-02-01 20:42 | EKG ---
Date Performed: 02/01/2018 Time Performed: 09:07:22 PTAGE: 78 years EKG: SINUS TACHYCARDIA WITH SHORT AR INTERVAL LEFT ATRIAL ENLARGEMENT POSSIBLE RIGHT VENTRICULAR CONDUCTION DELAY POSSIBLE LEFT VENTRICULAR HYPERTROPHY ST DEVIATION AND MODERATE T-WAVE ABNORMALITY, CONSIDER ANTEROLATERAL ISCHEMIA TYPE 3 BRUGADA PATTERN (NON-DIAGNOSTIC) ABNORMAL ECG NO PREVIOUS TRACING DOCTOR: Silas Martin Interpretating Date/Time 02/01/2018 20:42:25
--- NOTE | 2018-02-01 22:39 | EKG ---
Date Performed: 02/01/2018 Time Performed: 19:14:38 PTAGE: 78 years EKG: Sinus rhythm . Possible left atrial abnormality rSr'(V1) - probable normal variant Left ventricular hypertrophy An t/septal and lateral ST-T changes are probably due to ventricular hypertrophy Abnormal ECG PREVIOUS TRACING : 02/01/2018 12.58 No significant change from previous tracing noted. DOCTOR: Paul Martinez Interpretating Date/Time 02/01/2018 22:37:27
[2018-02-02] VITALS (25 sets, daily range): BP systolic 98–146; BP diastolic 60–101; PULSE 68–97; RESP 16–18; TEMP 97.4–98.6; O2SAT 96–99
[2018-02-02] MEDS: MORPHINE SULFATE 4 MG/ML INJ IV PUSH PRN ×2 (01:07→16:36)
[2018-02-02] MEDS: SODIUM CHLOR 0.9% 1000 ML INJ 1,000 ML IV SCH (01:55)
[2018-02-02 02:11] LABS: TROPONIN I 0.55 NG/ML (0.02-0.05)
[2018-02-02] MEDS ORDERED: SODIUM CHLOR 0.9% 1000 ML INJ 1,000 ML IV SCH ×2 (04:46→08:22)
[2018-02-02] MEDS ORDERED: DIAZEPAM 5 MG TAB PO SCH (05:00)
[2018-02-02] MEDS ORDERED: diphenhydrAMINE HCL 25 MG CAP PO SCH (05:00)
[2018-02-02] MEDS ORDERED: diphenhydrAMINE HCL 50 MG CAP PO SCH (05:00)
[2018-02-02 06:25] LABS: BASOPHIL % 0.7 % (0.0-2.0); EOSINOPHIL # 0.1 TH/MM3 (0-0.4); EOSINOPHIL % 1.8 % (0.0-4.0); LYMPHOCYTE # 1.6 TH/MM3 (1.0-4.8); MEAN CELL VOLUME 98.7 FL (80.0-100.0); MEAN CORPUSCULAR HGB CONC 32.4 % (32.0-36.0); MEAN PLATELET VOLUME 9.9 FL (7.0-11.0); MONOCYTE # 0.6 TH/MM3 (0-0.9); NEUT % 47.5 % (16.0-70.0); PLATELET COUNT 83 TH/MM3 (150-450); RED BLOOD COUNT 3.44 MIL/MM3 (4.00-5.30); RED CELL DISTRIBUTION WIDTH 13.5 % (11.6-17.2); WHITE BLOOD COUNT 4.3 TH/MM3 (4.0-11.0)
[2018-02-02 06:56] LABS: BICARBONATE 23.9 MEQ/L (21.0-32.0); BLOOD UREA NITROGEN 15 MG/DL (7-18); CALCIUM 8.4 MG/DL (8.5-10.1); CHLORIDE 105 MEQ/L (98-107); CREATININE 0.96 MG/DL (0.50-1.00); GLOMERULAR FILTRATION RATE 68 ML/MIN (>89); GLUCOSE,RANDOM 90 MG/DL (74-106); SODIUM (NA) 138 MEQ/L (136-145)
[2018-02-02 07:00] LABS: TROPONIN I 0.43 NG/ML (0.02-0.05)
[2018-02-02] MEDS ORDERED: HEPARIN-NS/PF INJ 1,000 ML ONE (07:14)
[2018-02-02] MEDS ORDERED: MIDAZOLAM HCL 2 MG/2 ML VIAL ONE (07:14)
[2018-02-02] MEDS ORDERED: NITROGLYCERIN INJ 5 ML ONE (07:22)
[2018-02-02] MEDS ORDERED: HEPARIN SODIUM - IV 10,000 UNITS/10 ML VIAL ONE (07:40)
--- NOTE | 2018-02-02 08:01 | EKG ---
Date Performed: 02/02/2018 Time Performed: 01:18:44 PTAGE: 78 years EKG: Sinus rhythm . Possible left atrial abnormality Left ventricular hypertrophy Ant/septal and lateral ST-T changes a re probably due to ventricular hypertrophy Abnormal ECG PREVIOUS TRACING : 02/01/2018 19.14 No significant change from previous tracing noted. DOCTOR: Paul Martinez Interpretating Date/Time 02/02/2018 07:59:56
--- NOTE | 2018-02-02 08:23 | MB ---
cc: Rodolfo Zendejas DO DATE: 02/01/2018 REASON FOR CONSULTATION: Chest pain, elevated troponin. HISTORY OF PRESENT ILLNESS: Alie Jacobs is a pleasant 78-year-old female who presented to [facility] Emergency Room due to chest pain. She previously was here earlier in the week and had chest pain at that time with an elevated troponin. She was seen by Dr. Rivera and after discussion with her about an ischemic evaluation versus medical management, she decided on medical management. She was started on blood pressure medications as she had extensive hypertension. Upon coming in, blood pressure is noted to be somewhat hypotensive and she has had chest pain on and off throughout the past day or so. She was found to have an elevated troponin and because of this, we were consulted. Pain is somewhat substernal, on and off, but not really related to activity. PAST MEDICAL HISTORY: 1. Hypertension. 2. COPD. 3. Abdominal and thoracic aortic aneurysm. 4. Seizure disorder. 5. Depression. 6. GERD. PAST SURGICAL HISTORY: 1. Left forearm surgery. 2. Brain surgery for aneurysm around 15 years ago. 3. Hysterectomy. ALLERGIES: 1. TYLENOL. 2. CODEINE. MEDICATIONS: 1. Donepezil 5 mg every night. 2. Albuterol 2 puffs every 4-6 hours as needed for shortness of breath. 3. Lipitor 40 mg every night. 4. Hydralazine 50 mg every 8 hours. 5. Metoprolol tartrate 25 mg b.i.d. 6. Nifedipine 90 mg daily. 7. Losartan 50 mg daily. 8. Phenytoin 100 mg b.i.d. 9. Zoloft 50 mg daily. 10. Trazodone 100 mg every night. 11. Hydrochlorothiazide 25 mg daily. 12. Protonix 40 mg daily. FAMILY HISTORY: Father had a stroke. Mother had heart problems. SOCIAL HISTORY: The patient smokes 2 cigarettes per day. She smoked for the past 50 years. Denies alcohol or drug abuse. REVIEW OF SYSTEMS: Fourteen systems were reviewed including osteopathic. Pertinent positives and negatives above, otherwise negative. PHYSICAL EXAMINATION: VITAL SIGNS: Temperature 97.6, heart rate 99, blood pressure 105/57, respirations 20, pulse oximetry 99% on room air. GENERAL: The patient appears well, in no acute distress. Alert, awake and oriented x 3. HEENT: Extraocular muscles intact. Mucous membranes moist. NECK: Supple. No JVD at 45 degrees. No carotid bruits heard bilaterally. Carotid upstroke is brisk in nature. HEART: Regular rate and rhythm. Positive first and second heart sounds, with no noted murmurs, gallops or rubs. LUNGS: Clear to auscultation bilaterally. No wheezes, rales or rhonchi. ABDOMEN: Soft, nontender, nondistended. No organomegaly noted. EXTREMITIES: Show no clubbing, cyanosis or edema. Femoral pulses intact. Distal pulses are somewhat diminished. NEUROLOGIC: No focal deficits. SKIN: Warm, dry and intact. OSTEOPATHIC: No kyphoscoliosis, lordosis or paraspinal tender points. LABORATORY DATA: Hemoglobin 13.7, hematocrit 41.2, platelets 109. Potassium 3.5, BUN 19, creatinine 1.0. A troponin 0.48. ELECTROCARDIOGRAM: (02/01/2018 at 12:58), sinus rhythm, biatrial enlargement, LVH with secondary ST-T wave changes, cannot rule out ischemia. IMPRESSION: 1. Chest pain concerning chest pain, somewhat atypical for coronary insufficiency. 2. Elevated troponin, possibly type 1 versus type 2. 3. Extensive thoracic and abdominal aneurysm by CT. 4. Tobacco abuse. 5. Chronic obstructive pulmonary disease. RECOMMENDATIONS: 1. Overall, Ms. Jacobs presented with chest pain and elevated troponin more than her previous episode. 2. We attempted to treat this medically and her blood pressure is now controlled and she still has chest pain, which may signify coronary artery disease. 3. Overall, it is a complicated case, as she has extensive thoracic abdominal aneurysm, which she was seen at [facility] and they recommended continued medical therapy as they think that she would not be able to survive the surgery necessary for fixing her aneurysm. 4. Case was discussed with Dr. Rivera and we will plan on keeping her n.p.o. and plan for cardiac catheterization in the morning. 5. There is an overall concern of multivessel disease, as she does have extensive peripheral vascular disease. 6. We will back down on some of her antihypertensives as she is hypotensive at this time. She should stay on beta beta-simeon and calcium channel simeon therapy as possible due to her aneurysm. 7. Further recommendations will be made based on the hospital course. Thank you for allowing me to see Alie Jacobs. If there are any questions, please do not hesitate to call. DO JENNIFER Garner/CYNDI , 12:03 AM , 12:44 AM
--- NOTE | 2018-02-02 08:25 | CATHPROC ---
[employer] HIS Report Study Information Study Number Admission Scheduled Start Study Start [id number] Feb 01 2018 12:50PM 02/02/2018 Feb 02 2018 7:14AM [place] Service Cardiac Catheterization Admit Source Facility Department Other [facility] - Clinical Nurse Specialist Physician and Clinical Staff Initial Jonathan Peters Senior Analysis Specialist Jesus Chaves,RN Recorder Anh Strange ,RT(R) Scrub Cesar Nieto RCIS(BS) Procedures Performed Procedure Location (Site) Vessel Name Angiogram LV LV Ventricle Coronary Angiograms LCA Left Coronary Coronary Angiograms RCA Right Coronary Coronary Angiograms Abd Aorta (A3) Aorta L Heart Cath Equipment Time Asphalt Layer Description Size Mfg Part Number Used/Scraped TRANSDUCER, TRUWAVE [id number] 07:45 ROBLES TURPIN * Used W/STOCKCOCK *[id number] *[id number] *[id number] PIGTAIL ANG. 145 INFINITI [id number] CATHETER *[id number] 07:45 MEDLINE INDUSTRIES PACK, CCL CUSTOM * Used *[id number] 07:45 MEDLINE PACER PEN, SKIN DUAL W/ RULER * Used *[id number] 07:45 [employer] MEDICAL SHEATH, FR6.5 PRELUDE 11CM FR 6.5 038ACT Used *[id number] 07:45 [employer] MEDICAL WIRE, 3MMJ .035 180CM 180CM Used *[id number] 07:52 [employer] MEDICAL WIRE, EXCHANGE 260CM 3MMJ 260CM Used *[id number] 07:45 NAMIC MANIFOLD, 4 PORT * Used *[id number] 07:45 [employer]COMED OMNIPAQUE, 350 MG, 150ML 150ML [id number] Used 07:45 [employer]COMED OMNIPAQUE, 350 MG, 50ML 50ML [id number] Used 08:07 [employer]COMED OMNIPAQUE, 350 MG, 50ML 50ML [id number] Used [id number] 07:45 [employer]ITING MEDICAL BLANKET,WARM AIR CCL * Used *[id number] History: Current Medications Medication Dosage/Unit Route Frequency Last Date/Time Taken Statins (any) ASA HYDRALAZINE History: Allergies Allergy Reaction *MDRO Multi-Drug Resistant Organism codeine acetaminophen MRI PRECAUTION ANEURYSM CLIP-(JLT) 01/05/09 DR. HERNANDEZ History: Risk Factors Family History of Hypertension Dyslipidemia Previous MA Previous Heart Failure Premature CAD Yes Yes No Yes No Prior Valve Prior PCI Prior CABG Surgery No No No Cerebrovascular Peripheral Artery Chronic Lung On Dialysis Diabetes Disease Disease Disease No No No Yes No History: Stress Tests Stress or Imaging Studies Performed No History: Other Current Smoker Method Packs a Day Years Used Pack Years Yes Cigarettes 1 60 60 Labs Hgb (g/dl) Hct (%) WBC (l/cumm) Platelets (thousands) 11.60-17.00 35.00-51.00 4.00-11.00 150.00-450.00 11.0 34 4.3 83 Glucose (mg/dl) BUN (mg/dl) Creatinine (mg/dl) BUN:Creatinine (1:x) 74.00-106.00 7.00-18.00 0.50-1.30 10.00-20.00 101 19 1.1 17.3 Na (meq/l) K (meq/l) 136.00-145.00 3.50-5.10 136 3.5 INR (PTT:PT) 0.90-1.10 1.2 Troponin I (ng/ml) CPK (u/l) CPK-MB (ng/ML) 0.02-0.05 26.00-308.00 0.50-3.60 0.55 109 7.0 Medication Medication Total Dose (Bolus/Oral) Medication Total Dosage/Unit 1% XYLOCAINE 20 mL VERSED 1 mg Medications (Bolus/Oral) Medication Time Given Dosage/Unit Administered By Reason VERSED 02/02/2018 7:43:25 AM 1 mg Jesus Chaves 1 mg VERSED given in lab by Jesus Chaves RN in Left Antecubital via Peripheral IV. Ordered by Jonathan Rivera. 1% XYLOCAINE 02/02/2018 7:45:48 AM 20 mL Jonathan Rivera Patient arrived on 20 mL 1% XYLOCAINE given by Jonathan Rivera in Right Groin via Subcutaneous. Medication (Drip) Medication Time Given Dosage/Unit Concentration/Unit Diluent (ml) Solution IV Solutions 02/02/2018 7:20:18 AM 50 mL (IV) NaCl .9 Patient arrived on IV Solutions in Left Forearm via Peripheral IV. Pump/Drip Flow using NaCl .9. Initial Case Assessment Cardiovascular HR NIBP Chest Pain 78 140/89 0 Edema Present Skin color Skin None Normal Warm Dry Circulatory - Right Pulses Dorsalis Pedis Femoral 2 2 Scale (0,1,2,3,4,d) Circulatory - Left Pulses Dorsalis Pedis Femoral 2 2 Scale (0,1,2,3,4,d) Circulatory - Lower Extremities Color Lower Right Color Lower Left Normal Normal Neurological State Oriented to time-place- Alert Moves all extremities person Respiration - General Respiration Rate SpO2 (%) (B/min) 15 98 Final Case Assessment Cardiovascular HR NIBP Chest Pain 78 140/89 0 Edema Present Skin color Skin None Normal Warm Dry Circulatory - Right Pulses Dorsalis Pedis Femoral 2 2 Scale (0,1,2,3,4,d) Circulatory - Left Pulses Dorsalis Pedis Femoral 2 2 Scale (0,1,2,3,4,d) Circulatory - Lower Extremities Color Lower Right Color Lower Left Normal Normal Neurological State Oriented to time-place- Alert Moves all extremities person Respiration - General Respiration Rate SpO2 (%) (B/min) 15 98 Chronological Log Time Study Chronological Log 7:13:46 Patient arrived via Bed. 7:13:47 Patient Name, D.O.B, / Armband Verified By R.N. 7:20:04 Consent signed by the physician and the patient and verified by the Clinical Nurse Specialist staff. 7:20:05 Pre-op and post- op instructions given; patient acknowledges understanding of instructions. 7:20:05 Verbal Stimulation=2 Physical Stimulation=2 Airway=2 Respiration=2 TOTAL=8. (0=absent, 1=li mited, 2=present) 7:20:08 Patient has been NPO for More than 6Hrs. 7:20:10 Skin Breakdown- none per patient 7:20:13 Patient Warmer Placed on the Table. 7:20:14 Adan Prominences Protected 7:20:16 A # 20 IV was noted in the Antecubital (right). Grade = 0 7:20:17 A # 20 IV was noted in the Forearm (left). Grade = 0 7:20:18 Patient arrived on IV Solutions in Left Forearm via Peripheral IV. Pump/Drip Flow using NaC l .9. 7:20:18 History and physical on the chart or being dictated. Assessment: Initial Case, HR=78 BPM, IIRU=185/89 mmhg, Chest Pain=0, Edema=None, Color=Normal, S kin = Warm, Dry Right Pulses: Alexei Ped=2, Femoral=2 Left Pulses: Alexei Ped=2, Femoral=2 7:20:19 Lower Right Extremities: Color=Normal Lower Left Extremities: Color=Normal Neurological: State=Alert, Ox3, BLAIR Respiration: Resp=15 B/min, SpO2=98 % 7:23:01 Bilateral groins prepped with 2% chlorhexidine, and draped after a 3 minute waiting time. Vitals capture started with the following parameters, Patient=Adult, Interval=5 min, Initial Pre qlloi=861 mmHg, 7:24:27 Deflation Rate=5 mmHg, Cuff placed on Left Arm 7:25:03 HR=78 bpm, AEFG=055/81 mmhg, SpO2=97.0 %, Resp=14 B/min, Pain=0, Yvon=10, Meneses=2 7:26:38 MD paged 7:29:58 HR=75 bpm, CSYO=183/78 mmhg, SpO2=97.0 %, Resp=12 B/min, Pain=0, Yvon=10, Meneses=2 7:33:16 Pressure channel 1 zeroed. 7:34:08 Reference ECG taken 7:34:57 HR=75 bpm, ONLK=942/78 mmhg, SpO2=97.0 %, Resp=13 B/min, Pain=0, Yvon=10, Meneses=2 7:39:56 HR=78 bpm, JMEK=999/83 mmhg, SpO2=97.0 %, Resp=12 B/min, Pain=0, Yvon=10, Meneses=2 7:42:03 MD arrived. 7:43:25 1 mg VERSED given in lab by Jesus Chaves, RN in Left Antecubital via Peripheral IV. Ordered by Jonathan Rivera. 7:43:39 ady hicks 7:44:27 Contrast Scanned 7:44:59 HR=76 bpm, IBAB=824/81 mmhg, SpO2=96.0 %, Resp=14 B/min Time Out. Correct patient, correct procedure, correct physician, labs, allergies, and equipment verified with casting house laborer 7:45:39 team present. Fire risk assesment completed (see hard stop sheet for coding). Time Out Concu rred by MD and individual staff in procedure. 7:45:48 Patient arrived on 20 mL 1% XYLOCAINE given by Jonathan Rivera in Right Groin via Subcutaneous . 7:45:57 Case Start 7:48:14 Access site was Right Femoral Artery. 7:48:32 A SHEATH, FR6.5 PRELUDE 11CM FR 6.5 was advanced into the Fem Art (right) using the Edith technique. A 3DRC INFINITI CATHETER FR 6 was advanced over a wire. OMNIPAQUE, 350 MG, 150ML 150ML was used for 7:49:53 injections. 7:49:58 HR=88 bpm, NSYD=636/89 mmhg, SpO2=95.0 %, Resp=18 B/min Recorded Pressure: Ao, HR=91, Condition=Condition 1 7:51:32 (Aorta) Ao 143/88/111 7:52:57 The RCA was injected and visualized at various angles. OMNIPAQUE, 350 MG, 150ML 150ML used. After removing the current catheter a PIGTAIL ANG. 145 INFINITI CATHETER FR 6 was advanced over a WIRE, 7:53:42 EXCHANGE 260CM 3MMJ 260CM. 7:54:59 HR=91 bpm, DXUP=848/89 mmhg, SpO2=93.0 %, Resp=18 B/min Recorded Pressure: LV, HR=89, Condition=Condition 1 7:57:21 (Left Ventricle) LV 145/7/15 7:57:39 The LV was injected at 10 cc/sec for a total of 40. OMNIPAQUE, 350 MG, 50ML 50ML used. 7:58:32 Pressure channel 1 zeroed. 8:00:02 HR=91 bpm, IEQC=569/89 mmhg, SpO2=97.0 %, Resp=17 B/min Recorded Pressure: LV, Ao, HR=92, Condition=Condition 1 8:00:11 (Left Ventricle) LV 147/3/15, (Aorta) Ao 148/83/110 After removing the current catheter a JL 4.5 INFINITI CATHETER FR 6 was advanced over a WIRE, EX CHANGE 260CM 8:01:50 3MMJ 260CM. 8:02:12 The LCA was injected and visualized at various angles. OMNIPAQUE, 350 MG, 150ML 150ML used . 8:05:02 HR=95 bpm, NHVO=814/101 mmhg, SpO2=95.0 %, Resp=18 B/min 8:05:41 anh meaghan batemane After removing the current catheter a PIGTAIL ANG. 145 INFINITI CATHETER FR 6 was advanced over a WIRE, 8:06:21 EXCHANGE 260CM 3MMJ 260CM. 8:07:13 Activated Clotting Time Drawn 8:09:55 The Abd Aorta (A3) was injected and visualized at various angles. OMNIPAQUE, 350 MG, 150ML 150ML used. 8:10:07 IS=454 bpm, EGXM=752/89 mmhg, SpO2=95.0 %, Resp=18 B/min, Pain=0, Yvon=10, Meneses=2 8:11:06 Catheter was removed Assessment: Final Case, HR=78 BPM, JVIE=065/89 mmhg, Chest Pain=0, Edema=None, Color=Normal, Sk in = Warm, Dry Right Pulses: Alexei Ped=2, Femoral=2 Left Pulses: Alexei Ped=2, Femoral=2 8:11:21 Lower Right Extremities: Color=Normal Lower Left Extremities: Color=Normal Neurological: State=Alert, Ox3, BLAIR Respiration: Resp=15 B/min, SpO2=98 % 8:11:33 Catheter(s) removed without difficulty 8:11:45 Case End 8:12:10 No case complications noted. 8:12:25 Cine recording checked. 8:12:27 Bedside Report will be given. 8:12:31 A Left Heart Cath was performed. 8:12:36 Activated Clotting Time Drawn 8:15:01 ACT (Normal Range 90-180) = 137 8:15:43 HR=98 bpm, KWJK=704/109 mmhg, SpO2=97.0 %, Resp=20 B/min, Pain=0, Yvon=10, Meneses=2 8:16:06 Sheath(s) left in place, will be removed in Holding Area 8:16:09 Sterile dressing applied to site 8:20:05 HR=95 bpm, ALHK=447/106 mmhg, SpO2=96.0 %, Resp=14 B/min, Pain=0, Yvon=10, Meneses=2 8:23:25 Patient moved to stretcher 8:24:46 Vitals capture stopped. End Study - Contrast Media Used In Study Contrast Total Opened (mL) Total Used (mL) Total Wasted (mL) Omnipaque 125 125 0 End Study - Maximum Contrast Load Max Contrast Load (mL) 181.8 End Study - Radiation Exposure Fluoro Time (minutes) 8.3 End Study - Patient Disposition Complications Transferred To Interventional Outcome No Telemetry Bed No attempt made
[2018-02-02] MEDS ORDERED: ATROPINE SULFATE 1 MG/ML VIAL IV PUSH PRN (08:30)
[2018-02-02] MEDS ORDERED: SODIUM CHLOR 0.9% 250 ML INJ 250 ML IV PRN (08:30)
[2018-02-02] MEDS ORDERED: METOCLOPRAMIDE HCL 10 MG/2 ML VIAL IV PUSH PRN (08:30)
[2018-02-02] MEDS ORDERED: MISC INFORMATION XX ONE (08:30)
[2018-02-02] MEDS ORDERED: BACITRACIN OINT 0.9 GM PKT TOP ONE (08:30)
--- NOTE | 2018-02-02 08:37 | MA ---
cc: Jonathan Rivera MD DATE: 02/02/2018 PROCEDURES PERFORMED: Right femoral arterial access, left heart catheterization, left ventriculography, coronary angiography and abdominal aortography. DESCRIPTION OF PROCEDURE: The patient was brought to the cardiac catheterization lab in a fasting state. Using 1%lidocaine for local anesthesia, a 6.5-Vietnamese sheath was inserted in the right femoral artery. Next, I used a 3DRC catheter and a regular J-wire and navigated all the way up to just above the coronaries. Exchange guidewire technique was used throughout the case because of her prominent aneurysms. Right coronary angiography was completed using a 3DRC catheter. I then exchanged to an angled pigtail catheter and crossed the aortic valve in the did an LV gram and a pullback. I then exchanged to a left 4.5 Edith catheter to obtain angiography of the left coronary artery. I then exchanged to the pigtail catheter and shot the abdominal aorta. At the end of the procedure, the sheath was being pulled manually. There were no complications. HEMODYNAMICS: 1. Left ventricular pressure is 147/3 with an end diastolic pressure of 15. Aortic pressure is 148/83 with a mean of 110. There was no gradient during pullback from left ventricle to the aorta. 2. Left ventriculography: Left ventriculography shows a hypercontractile left ventricle. Estimated ejection fraction is 80%. There is no mitral regurgitation seen. 3. Coronary angiography: Left main coronary artery is large and ectatic. There is no stenosis. It bifurcates into the LAD and circumflex vessels. The LAD has about 20% proximal stenosis. Diagonal branch has about 10% stenosis. Circumflex artery is very tortuous, but the circumflex and the marginal branches show no stenosis. Right coronary artery is dominant and has about 25% proximal stenosis. Acute marginal branch is diseased and has 90% stenosis. 4. Abdominal aortogram: Abdominal aortogram was performed to evaluate her renal arteries because of the severe hypertension. She has a large abdominal aortic aneurysm and the renal arteries come off of this. The right renal artery is clearly patent. The left renal artery is more difficult to visualize due to overlap of vessels. It is noted that the left common iliac appears to be totally occluded. IMPRESSION: 1. Unremarkable hemodynamics. 2. Above normal ejection fraction. 3. Only mild coronary artery disease. 4. Large abdominal aortic aneurysm already known. 5. Seclusion of the left common iliac. RECOMMENDATIONS: Medical management. MD HANNAH Martinez/TIANA , 08:20 AM , 08:36 AM
[2018-02-02] MEDS: PHENYTOIN SODIUM 100 MG CAP PO SCH ×2 (08:41→21:16)
[2018-02-02] MEDS: SERTRALINE HCL 50 MG TAB PO SCH (08:41)
[2018-02-02] MEDS: PANTOPRAZOLE SOD 40 MG DELAYED RELEASE TAB PO SCH (08:41)
[2018-02-02] MEDS: METOPROLOL TARTRATE 25 MG TAB PO SCH ×2 (08:41→21:16)
[2018-02-02] MEDS: ASPIRIN EC 325 MG TABEC PO SCH (08:41)
[2018-02-02] MEDS ORDERED: ASPIRIN 325 MG TAB PO SCH (09:00)
[2018-02-02] MEDS: SODIUM CHLORIDE 0.9% FLUSH 10 ML FLUSH IV FLUSH SCH ×2 (09:00→21:19)
[2018-02-02] MEDS ORDERED: IOHEXOL 350 MG/ML 50 ML BTL (for Cath Lab) OTHER ONE (10:51)
[2018-02-02] MEDS ORDERED: IOHEXOL 350 MG/ML 100 ML BTL (for Cath Lab) OTHER ONE (10:51)
--- NOTE | 2018-02-02 14:52 | HHI.PR ---
Subjective Remarks "I have stomach aching "patient reported 9 out of 10 severity This is a follow-up on chest pain and history of AAA No nausea or vomiting, today hemoglobin dropped from 13.7-11 platelet 1.9 dropped to 83 which is concerning considering his history of the abdominal aortic aneurysm, I will check H&H every 6 hours with close monitoring especially with the patient on heparin drip, heart cath came back negative Objective Vitals Vital Signs Date Time Temp Pulse Resp B/P (MAP) Pulse Ox O2 Delivery O2 Flow Rate FiO2 02/02/18 11:00 68 02/02/18 07:00 97 Room Air 02/02/18 07:00 97.8 92 16 142/101 (115) 96 02/02/18 07:00 77 02/02/18 06:00 84 02/02/18 05:00 88 02/02/18 04:00 93 02/02/18 04:00 98.2 93 18 98/60 (73) 97 02/02/18 04:00 Room Air 02/02/18 03:00 88 02/02/18 02:00 85 02/02/18 01:00 87 02/02/18 00:00 Room Air 02/02/18 00:00 98.6 97 18 101/69 (80) 96 02/02/18 00:00 97 02/01/18 23:00 92 02/01/18 22:00 81 02/01/18 21:00 84 02/01/18 20:00 98.3 91 18 123/44 (70) 98 02/01/18 20:00 91 02/01/18 18:00 74 02/01/18 17:00 70 02/01/18 16:30 18 02/01/18 16:00 70 02/01/18 15:08 97.6 101 18 113/69 (84) 97 02/01/18 15:00 93 I/O 02/01/18 02/01/18 02/01/18 02/02/18 02/02/18 02/02/18 07:00 15:00 23:00 07:00 15:00 23:00 Intake Total 500 ml 600 ml 1380 ml Output Total 200 ml 600 ml Balance 500 ml 400 ml 780 ml Intake Oral 600 ml 480 ml IV Total 500 ml 900 ml Output Urine Total 200 ml 600 ml # Bowel Movements 0 Result Diagram: 02/02/18 0559 02/02/18 0559 Objective Remarks GENERAL: This is a well-nourished, well-developed patient, in no apparent distress. CARDIOVASCULAR: RRR, S3 RESPIRATORY: Fair air entry bilaterally. No W, R, or R GASTROINTESTINAL: Abdomen soft, non-tender, nondistended. Positive bowel sounds MUSCULOSKELETAL: Extremities without clubbing, cyanosis, or edema. Pedal pulses appreciated NEUROLOGICAL: Awake and alert. Moves all extremity. Normal speech.no focal neurological deficit A/P Problem List: (1) NSTEMI (non-ST elevated myocardial infarction) ICD Code: I21.4 - Non-ST elevation (NSTEMI) myocardial infarction (2) JULI (acute kidney injury) ICD Code: N17.9 - Acute kidney failure, unspecified (3) Chest pain ICD Code: R07.9 - Chest pain Status: Acute (4) Hx of abdominal aortic aneurysm ICD Code: Z86.79 - Hx of abdominal aortic aneurysm Status: Acute (5) HTN (hypertension) ICD Code: I10 - Hypertension Status: Acute (6) Thoracic aneurysm ICD Code: I71.2 - Thoracic aneurysm Status: Acute (7) COPD (chronic obstructive pulmonary disease) ICD Code: J44.9 - Chronic obstructive pulmonary disease, unspecified Assessment and Plan 78-year-old female with history of HTN, abdominal and thoracic aortic aneurysms , COPD, GERD, seizure disorder, depression, presents with intermittent chest pains. 02/02:No nausea or vomiting, today hemoglobin dropped from 13.7-11 platelet 1.9 dropped to 83 which is concerning considering his history of the abdominal aortic aneurysm, I will check H&H every 6 hours with close monitoring especially with the patient on heparin drip, heart cath came back negative A/P: Chest pain with elevated troponin -With history of thoracic and abdominal aneurysms, checked aorta CTA which showed slight enlargement of a sending aortic aneurysm, however improved and healing thrombosis and old dissection; multiple known aneurysms throughout thorax, abdomen, iliac arteries, all slightly enlarged compared to previous exam in 2015 but no acute dissection. -Patient reportedly has been evaluated at [facility] for her aneurysms, told she would likely not survive procedure -Troponins elevated at 0.45. Patient had a troponin of 0.36 on discharge. Continue to trend troponin. And EKGs. -Cardiology consulted. The case was discussed by ED physician with Dr. Zendejas who recommends inpatient admission and treatment with IV heparin. Thoracic/Abdominal/Iliac Aneurysms: chronic -Aorta CTA checked as above, shows gradual enlargements of aneurysms compared to 2015 -Previously evaluated by [facility], not surgical candidate -Control BP, much improved -Consult vascular surgery. Hypertension: -Patient previously with accelerated hypertension. Now patient's blood pressure is borderline low. Hold all antihypertensive medications. Dementia: Chronic -continue donepezil. Seizure disorder. Chronic. -Continue phenytoin. -Seems stable. Depression: Chronic. -Continue Zoloft. -Will hold off on trazodone due to hypertension. GERD: Chronic. -Continue PPI. Tobacco abuse: Chronic -Patient counseled on cessation. Chronic ongoing weight loss: This could be secondary to dementia. -Tobacco cessation could be helpful. -Encourage p.o. intake. Hyperlipidemia: chronic -continue patient's statin Acute kidney injury -Creatinine elevated up to 1.08. Upon review of records baseline 0.7-0.8. I will start the patient IV fluids and monitor BUN and creatinine. DVT Prophylaxis: Torsten Vogel MD February 02, 2018 14:52
--- NOTE | 2018-02-02 15:52 | HHI.PR ---
Objective Vitals Vital Signs Date Time Temp Pulse Resp B/P (MAP) Pulse Ox O2 Delivery O2 Flow Rate FiO2 02/02/18 15:00 98.1 82 16 144/91 (108) 99 02/02/18 11:00 97.4 70 16 146/94 (111) 98 02/02/18 11:00 68 02/02/18 07:00 97 Room Air 02/02/18 07:00 97.8 92 16 142/101 (115) 96 02/02/18 07:00 77 02/02/18 06:00 84 02/02/18 05:00 88 02/02/18 04:00 93 02/02/18 04:00 98.2 93 18 98/60 (73) 97 02/02/18 04:00 Room Air 02/02/18 03:00 88 02/02/18 02:00 85 02/02/18 01:00 87 02/02/18 00:00 Room Air 02/02/18 00:00 98.6 97 18 101/69 (80) 96 02/02/18 00:00 97 02/01/18 23:00 92 02/01/18 22:00 81 02/01/18 21:00 84 02/01/18 20:00 98.3 91 18 123/44 (70) 98 02/01/18 20:00 91 02/01/18 18:00 74 02/01/18 17:00 70 02/01/18 16:30 18 02/01/18 16:00 70 I/O 02/01/18 02/01/18 02/01/18 02/02/18 02/02/18 02/02/18 07:00 15:00 23:00 07:00 15:00 23:00 Intake Total 500 ml 600 ml 1380 ml Output Total 200 ml 600 ml Balance 500 ml 400 ml 780 ml Intake Oral 600 ml 480 ml IV Total 500 ml 900 ml Output Urine Total 200 ml 600 ml # Bowel Movements 0 Result Diagram: 02/02/1855802/02/18 0559 A/P Problem List: (1) NSTEMI (non-ST elevated myocardial infarction) ICD Code: I21.4 - Non-ST elevation (NSTEMI) myocardial infarction (2) JULI (acute kidney injury) ICD Code: N17.9 - Acute kidney failure, unspecified (3) Chest pain ICD Code: R07.9 - Chest pain Status: Acute (4) Hx of abdominal aortic aneurysm ICD Code: Z86.79 - Hx of abdominal aortic aneurysm Status: Acute (5) HTN (hypertension) ICD Code: I10 - Hypertension Status: Acute (6) Thoracic aneurysm ICD Code: I71.2 - Thoracic aneurysm Status: Acute (7) COPD (chronic obstructive pulmonary disease) ICD Code: J44.9 - Chronic obstructive pulmonary disease, unspecified Torsten Borges MD February 02, 2018 15:52
[2018-02-02 19:33] LABS: HEMATOCRIT 34.2 % (35.0-46.0); HEMOGLOBIN 11.2 GM/DL (11.6-15.3)
[2018-02-02] MEDS: traZODone HCL 100 MG TAB PO SCH (21:16)
[2018-02-02] MEDS: DONEPEZIL HCL 5 MG TAB PO SCH (21:16)
[2018-02-02] MEDS: ATORVASTATIN 40 MG TAB PO SCH (21:16)
[2018-02-03] VITALS (10 sets, daily range): BP systolic 139; BP diastolic 92; PULSE 70–103; RESP 14–16; TEMP 97.9; O2SAT 100
[2018-02-03 00:52] LABS: HEMATOCRIT 32.9 % (35.0-46.0); HEMOGLOBIN 10.9 GM/DL (11.6-15.3)
[2018-02-03 06:34] LABS: AUTOMATED NEUTROPHIL # 3.1 TH/MM3 (1.8-7.7); BASOPHIL % 0.6 % (0.0-2.0); EOSINOPHIL # 0.1 TH/MM3 (0-0.4); EOSINOPHIL % 2.3 % (0.0-4.0); HEMATOCRIT 33.4 % (35.0-46.0); HEMOGLOBIN 11.1 GM/DL (11.6-15.3); LYMPH % 23.2 % (9.0-44.0); LYMPHOCYTE # 1.2 TH/MM3 (1.0-4.8); MEAN CELL VOLUME 97.5 FL (80.0-100.0); MEAN CORPUSCULAR HEMOGLOBIN 32.3 PG (27.0-34.0); MEAN CORPUSCULAR HGB CONC 33.1 % (32.0-36.0); MEAN PLATELET VOLUME 9.8 FL (7.0-11.0); MONO % 13.4 % (0.0-8.0); MONOCYTE # 0.7 TH/MM3 (0-0.9); NEUT % 60.5 % (16.0-70.0); PLATELET COUNT 81 TH/MM3 (150-450); RED BLOOD COUNT 3.42 MIL/MM3 (4.00-5.30); RED CELL DISTRIBUTION WIDTH 13.8 % (11.6-17.2); WHITE BLOOD COUNT 5.1 TH/MM3 (4.0-11.0)
[2018-02-03 07:00] LABS: BICARBONATE 24.6 MEQ/L (21.0-32.0); CALCIUM 8.5 MG/DL (8.5-10.1); CREATININE 0.86 MG/DL (0.50-1.00)
[2018-02-03] MEDS: SODIUM CHLORIDE 0.9% FLUSH 10 ML FLUSH IV FLUSH SCH (09:00)
[2018-02-03] MEDS ORDERED: AMLO5 PO (09:08)
[2018-02-03] MEDS: PANTOPRAZOLE SOD 40 MG DELAYED RELEASE TAB PO SCH (09:14)
[2018-02-03] MEDS: METOPROLOL TARTRATE 25 MG TAB PO SCH (09:14)
[2018-02-03] MEDS: PHENYTOIN SODIUM 100 MG CAP PO SCH (09:14)
[2018-02-03] MEDS: ASPIRIN EC 325 MG TABEC PO SCH (09:14)
[2018-02-03] MEDS: SERTRALINE HCL 50 MG TAB PO SCH (09:14)
--- NOTE | 2018-02-03 09:14 | HHI.PR ---
Subjective Remarks awake and alert no complains of chest discomfort/shortness of breath or abdominal pain Objective Vitals Vital Signs Date Time Temp Pulse Resp B/P (MAP) Pulse Ox O2 Delivery O2 Flow Rate FiO2 02/03/18 07:00 100 Room Air 02/03/18 07:00 97.9 80 14 139/92 (108) 100 02/03/18 04:00 73 16 02/03/18 04:00 73 02/03/18 03:13 77 02/03/18 02:00 76 02/03/18 01:00 72 02/03/18 00:00 74 02/03/18 00:00 73 02/03/18 00:00 74 16 02/02/18 23:00 84 02/02/18 22:00 90 02/02/18 21:00 86 02/02/18 20:56 98.1 85 16 143/96 (112) 98 02/02/18 20:05 92 02/02/18 20:02 Room Air 21 02/02/18 20:00 92 02/02/18 19:00 86 02/02/18 18:00 92 02/02/18 17:00 82 02/02/18 16:55 20 02/02/18 16:00 82 02/02/18 15:00 81 02/02/18 15:00 98.1 82 16 144/91 (108) 99 02/02/18 14:00 72 02/02/18 13:00 76 02/02/18 12:00 70 02/02/18 11:00 97.4 70 16 146/94 (111) 98 02/02/18 11:00 68 02/02/18 10:00 72 I/O 02/02/18 02/02/18 02/02/18 02/03/18 02/03/18 02/03/18 07:00 15:00 23:00 07:00 15:00 23:00 Intake Total 1380 ml 720 ml 600 ml Output Total 600 ml 300 ml 400 ml Balance 780 ml 420 ml 200 ml Intake Oral 480 ml 720 ml 600 ml IV Total 900 ml Output Urine Total 600 ml 300 ml 400 ml # Voids 2 # Bowel Movements 0 Result Diagram: 02/03/18 0612 02/03/18 0612 Imaging Last Impressions Aorta CTA 02/01/18 1001 Signed Impressions: Service Date/Time: Thursday, February 01, 2018 10:03 - CONCLUSION: No significant change in the thoracic aortic, abdominal aortic, and iliac artery aneurysms with mural thrombus and dissection flap when compared to CTA performed 5 days ago. Please refer to the report of the prior CTA for a detailed description of the findings. Carson Ruiz MD Chest X-Ray 02/01/18 0920 Signed Impressions: Service Date/Time: Thursday, February 01, 2018 10:19 - CONCLUSION: No acute findings in the chest. No evidence of pleural effusion or pneumothorax. Carson Ruiz MD Objective Remarks awake and alert, no acute distress, very interactive and delightful anicteric lungs- no rales regular rhythm abdomen soft, good bowel sounds, nontendere xtremiteis no edema neuro exam- unremarkable A/P Problem List: (1) NSTEMI (non-ST elevated myocardial infarction) ICD Code: I21.4 - Non-ST elevation (NSTEMI) myocardial infarction (2) JULI (acute kidney injury) ICD Code: N17.9 - Acute kidney failure, unspecified (3) Chest pain ICD Code: R07.9 - Chest pain Status: Acute (4) Hx of abdominal aortic aneurysm ICD Code: Z86.79 - Hx of abdominal aortic aneurysm Status: Acute (5) HTN (hypertension) ICD Code: I10 - Hypertension Status: Acute (6) Thoracic aneurysm ICD Code: I71.2 - Thoracic aneurysm Status: Acute (7) COPD (chronic obstructive pulmonary disease) ICD Code: J44.9 - Chronic obstructive pulmonary disease, unspecified Assessment and Plan 78-year-old female with history of HTN, abdominal and thoracic aortic aneurysms , COPD, GERD, seizure disorder, depression, presents with intermittent chest pains. 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 -Patient reportedly has been evaluated at [facility] for her aneurysms, told she would likely not survive procedure- OP ff up with [facility] -Troponins elevated at 0.45. Patient had a troponin of 0.36 on discharge. Continue to trend troponin. - control BP- restart home meds Thoracic/Abdominal/Iliac Aneurysms: chronic -Aorta CTA checked as above, shows gradual enlargements of aneurysms compared to 2015 -Previously evaluated by [facility], not surgical candidate -Control BP, much improved -- OP ff up with [facility] Hypertension: -Patient previously with accelerated hypertension. - restart meds- Amlodipine, BB, ARB Dementia: Chronic -continue donepezil. Seizure disorder. Chronic. -Continue phenytoin. -Seems stable. Depression: Chronic. -Continue Zoloft. -Will hold off on trazodone due to hypertension. GERD: Chronic. -Continue PPI. Tobacco abuse: Chronic -Patient counseled on cessation. Chronic ongoing weight loss: This could be secondary to dementia. -Tobacco cessation could be helpful. -Encourage p.o. intake. Hyperlipidemia: chronic -continue patient's statin Acute kidney injury- resolved chronic thrombocytopenia- recheck as OP- OP ff up with PCP DVT Prophylaxis: SCDs DC today- OP ff up with PCP arrange for home health care - nursing- Problem Qualifiers (1) HTN (hypertension): Qualified Codes: I10 - Essential (primary) hypertension Ama Phillips MD February 03, 2018 09:14
[2018-02-03] MEDS ORDERED: amLODIPine BESYLATE 5 MG TAB PO SCH (09:15)
--- NOTE | 2018-02-03 09:17 | HHI.FF ---
Face to Face Verification Diagnosis: (1) Accelerated hypertension (2) Dementia Home Health Nursing Order: Medical education Signs/symptoms of disease process Medication education-adverse effect Nursing assessment with vital signs I have seen patient Alie Jacobs on 02/03/18. My clinical findings support the need for the requested home health care services because: Need for psychosocial assistance I certify that my clinical findings support that this patient is homebound because: Need for psychosocial assistance Ama Phillips MD February 03, 2018 09:17
[2018-02-03] MEDS ORDERED: COZA25TA PO (09:31)
--- NOTE | 2018-02-03 10:06 | PD.CARD.PN ---
Subjective Subjective Remarks no pain, no complaints Objective Medications Current Medications Medications (Trade) Dose Ordered Sig/Hernandez Route Start Time Stop Time Status Last Admin (Heparin Inj) 5,000 units UNSCH PRN IV PUSH 02/01/18 18:00 (Heparin Inj) 2,500 units UNSCH PRN IV PUSH 02/01/18 18:00 Heparin Sodium/ Dextrose 250 ml @ 4.8 mls/hr TITRATE PRN IV 02/01/18 12:30 02/01/18 12:38 (NS Flush) 2 ml BID IV FLUSH 02/01/18 21:00 02/03/18 09:00 (NS Flush) 2 ml UNSCH PRN IV FLUSH 02/01/18 14:00 (Ecotrin Ec) 325 mg DAILY PO 02/02/18 09:00 02/03/18 09:14 (Morphine Inj) 2 mg Q30M PRN IV PUSH 02/01/18 14:00 (Proair Hfa Inh) 2 puff Q6HR PRN INH 02/01/18 14:15 (Lipitor) 40 mg HS PO 02/01/18 21:00 02/02/18 21:16 (Aricept) 5 mg HS PO 02/01/18 21:00 02/02/18 21:16 (Protonix) 40 mg DAILY PO 02/02/18 09:00 02/03/18 09:14 (Dilantin) 100 mg BID PO 02/01/18 21:00 02/03/18 09:14 (Zoloft) 50 mg DAILY PO 02/02/18 09:00 02/03/18 09:14 (Desyrel) 100 mg HS PO 02/01/18 21:00 02/02/18 21:16 (Lopressor) 25 mg BID PO 02/02/18 09:00 02/03/18 09:14 (Morphine Inj) 2 mg Q4H PRN IV PUSH 02/01/18 16:15 02/02/18 16:36 (Morphine Inj) 4 mg Q3H PRN IV PUSH 02/01/18 16:15 02/02/18 01:07 (Valium) 5 mg RESEARCH RN SPEC PO 02/02/18 05:00 02/06/18 04:59 (Benadryl) 25 mg RESEARCH RN SPEC PO 02/02/18 05:00 02/06/18 04:59 (Atropine Inj) 0.5 mg UNSCH PRN IV PUSH 02/02/18 08:30 (Reglan Inj) 10 mg Q4H PRN IV PUSH 02/02/18 08:30 (Norvasc) 5 mg DAILY PO 02/03/18 09:15 (Cozaar) 25 mg DAILY PO 02/04/18 09:00 Vital Signs / I&O Vital Signs Date Time Temp Pulse Resp B/P (MAP) Pulse Ox O2 Delivery O2 Flow Rate FiO2 02/03/18 07:00 100 Room Air 02/03/18 07:00 97.9 80 14 139/92 (108) 100 02/03/18 04:00 73 16 02/03/18 04:00 73 02/03/18 03:13 77 02/03/18 02:00 76 02/03/18 01:00 72 02/03/18 00:00 74 02/03/18 00:00 73 02/03/18 00:00 74 16 02/02/18 23:00 84 02/02/18 22:00 90 02/02/18 21:00 86 02/02/18 20:56 98.1 85 16 143/96 (112) 98 02/02/18 20:05 92 02/02/18 20:02 Room Air 21 02/02/18 20:00 92 02/02/18 19:00 86 02/02/18 18:00 92 02/02/18 17:00 82 02/02/18 16:55 20 02/02/18 16:00 82 02/02/18 15:00 81 02/02/18 15:00 98.1 82 16 144/91 (108) 99 02/02/18 14:00 72 02/02/18 13:00 76 02/02/18 12:00 70 02/02/18 11:00 97.4 70 16 146/94 (111) 98 02/02/18 11:00 68 I/O 02/02/18 02/02/18 02/02/18 02/03/18 02/03/18 02/03/18 07:00 15:00 23:00 07:00 15:00 23:00 Intake Total 1380 ml 720 ml 600 ml Output Total 600 ml 300 ml 400 ml Balance 780 ml 420 ml 200 ml Intake Oral 480 ml 720 ml 600 ml IV Total 900 ml Output Urine Total 600 ml 300 ml 400 ml # Voids 2 # Bowel Movements 0 Physical Exam Alert Chest Clear CV S1S2 RRR right groin OK, foot perfused Laboratory Laboratory Tests Test 02/02/18 11:02 02/02/18 19:12 02/03/18 00:22 02/03/18 06:12 Activated Partial Thromboplast Time 24.8 SEC Hemoglobin 11.2 GM/DL 10.9 GM/DL 11.1 GM/DL Hematocrit 34.2 % 32.9 % 33.4 % White Blood Count 5.1 TH/MM3 Red Blood Count 3.42 MIL/MM3 Mean Corpuscular Volume 97.5 FL Mean Corpuscular Hemoglobin 32.3 PG Mean Corpuscular Hemoglobin Concent 33.1 % Red Cell Distribution Width 13.8 % Platelet Count 81 TH/MM3 Mean Platelet Volume 9.8 FL Neutrophils (%) (Auto) 60.5 % Lymphocytes (%) (Auto) 23.2 % Monocytes (%) (Auto) 13.4 % Eosinophils (%) (Auto) 2.3 % Basophils (%) (Auto) 0.6 % Neutrophils # (Auto) 3.1 TH/MM3 Lymphocytes # (Auto) 1.2 TH/MM3 Monocytes # (Auto) 0.7 TH/MM3 Eosinophils # (Auto) 0.1 TH/MM3 Basophils # (Auto) 0.0 TH/MM3 CBC Comment AUTO DIFF Differential Comment AUTO DIFF CONFIRMED Platelet Estimate LOW Platelet Morphology Comment NORMAL Blood Urea Nitrogen 11 MG/DL Creatinine 0.86 MG/DL Random Glucose 100 MG/DL Calcium Level 8.5 MG/DL Sodium Level 137 MEQ/L Potassium Level 4.1 MEQ/L Chloride Level 103 MEQ/L Carbon Dioxide Level 24.6 MEQ/L Anion Gap 9 MEQ/L Estimat Glomerular Filtration Rate 77 ML/MIN Assessment and Plan Problem List: (1) Elevated troponin ICD Codes: R74.8 - Abnormal levels of other serum enzymes Plan: non-obstructive CAD (2) Aortic aneurysm ICD Codes: I71.9 - Aortic aneurysm of unspecified site, without rupture (3) Hypertensive heart disease ICD Codes: I11.9 - Hypertensive heart disease without heart failure (4) COPD (chronic obstructive pulmonary disease) ICD Codes: J44.9 - Chronic obstructive pulmonary disease, unspecified Assessment and Plan OK with me to Jonathan Phipps MD February 03, 2018 10:06
--- NOTE | 2018-02-03 17:27 | HHI.DS ---
Discharge Summary Admission Date February 01, 2018 at 12:50 Discharge Date: February 03, 2018 Admitting Diagnosis NSTEMI (1) NSTEMI (non-ST elevated myocardial infarction) ICD Code: I21.4 - Non-ST elevation (NSTEMI) myocardial infarction (2) JULI (acute kidney injury) ICD Code: N17.9 - Acute kidney failure, unspecified (3) Chest pain ICD Code: R07.9 - Chest pain Status: Acute (4) Hx of abdominal aortic aneurysm ICD Code: Z86.79 - Hx of abdominal aortic aneurysm Status: Acute (5) HTN (hypertension) ICD Code: I10 - Hypertension Status: Acute (6) Thoracic aneurysm ICD Code: I71.2 - Thoracic aneurysm Status: Acute (7) COPD (chronic obstructive pulmonary disease) ICD Code: J44.9 - Chronic obstructive pulmonary disease, unspecified Brief History - From Admission This is a 78-year-old female with past medical history significant for COPD, smoking, CAD, history of thoracic and aortic aneurysm who presents to [facility] complaining of chest pain. The patient had been recently discharged from this institution on 01/29/2018 after being evaluated for chest pain and elevated troponins. At the time the patient was seen by Dr. Rivera who thought that possibly elevated troponin level was secondary to subendocardial ischemia. At the time the toe was discussed with the patient and given the option of medical therapy, SPECT or cardiac catheterization. As per medical records medical therapy was chosen. The patient presents with complaints of chest pain, substernal, rated as 10/10 intensity, nonradiating started yesterday morning and continue through the night. Denies palpitations, denies diaphoresis. The patient complains of nausea and vomiting several times. The patient also complains of periumbilical pain which is 9/10 intensity. Patient states there is no aggravating or alleviating factor. CBC/BMP: 02/03/18 0612 02/03/18 0612 Significant Findings Laboratory Tests Test 02/01/18 09:25 02/01/18 10:34 02/01/18 10:43 02/01/18 12:41 Platelet Count 109 TH/MM3 (150-450) Monocytes (%) (Auto) 12.6 % (0.0-8.0) Prothrombin Time 12.0 SEC (9.8-11.6) Blood Urea Nitrogen 19 MG/DL (7-18) Creatinine 1.08 MG/DL (0.50-1.00) Albumin 3.0 GM/DL (3.4-5.0) Calcium Level 8.4 MG/DL (8.5-10.1) Alkaline Phosphatase 154 U/L (45-117) Estimat Glomerular Filtration Rate 60 ML/MIN (>89) Creatine Kinase MB 8.0 NG/ML (0.5-3.6) Troponin I 0.45 NG/ML (0.02-0.05) 0.48 NG/ML (0.02-0.05) Test 02/01/18 18:17 02/02/18 01:23 02/02/18 05:59 02/02/18 11:02 Activated Partial Thromboplast Time 34.7 SEC (24.3-30.1) 44.8 SEC (24.3-30.1) Creatine Kinase MB 7.0 NG/ML (0.5-3.6) 7.0 NG/ML (0.5-3.6) 6.8 NG/ML (0.5-3.6) Troponin I 0.59 NG/ML (0.02-0.05) 0.55 NG/ML (0.02-0.05) 0.43 NG/ML (0.02-0.05) Red Blood Count 3.44 MIL/MM3 (4.00-5.30) Hemoglobin 11.0 GM/DL (11.6-15.3) Hematocrit 34.0 % (35.0-46.0) Platelet Count 83 TH/MM3 (150-450) Monocytes (%) (Auto) 13.0 % (0.0-8.0) Platelet Estimate LOW (NORMAL) Calcium Level 8.4 MG/DL (8.5-10.1) Estimat Glomerular Filtration Rate 68 ML/MIN (>89) Test 02/02/18 19:12 02/03/18 00:22 02/03/18 06:12 Hemoglobin 11.2 GM/DL (11.6-15.3) 10.9 GM/DL (11.6-15.3) 11.1 GM/DL (11.6-15.3) Hematocrit 34.2 % (35.0-46.0) 32.9 % (35.0-46.0) 33.4 % (35.0-46.0) Red Blood Count 3.42 MIL/MM3 (4.00-5.30) Platelet Count 81 TH/MM3 (150-450) Monocytes (%) (Auto) 13.4 % (0.0-8.0) Platelet Estimate LOW (NORMAL) Estimat Glomerular Filtration Rate 77 ML/MIN (>89) PE at Discharge awake and alert, no acute distress, very interactive and delightful anicteric lungs- no rales regular rhythm abdomen soft, good bowel sounds, nontendere xtremiteis no edema neuro exam- unremarkable Pt Condition on Discharge: Stable Discharge Disposition: Disch w/ Home Health Serv Discharge Time: <= 30 minutes Discharge Instructions DIET: Follow Instructions for: Heart Healthy Diet Activities you can perform: Weight Bearing as Oskar Follow up Referrals: PCP Follow-up - 02/06/18 with PCP New Orders: CBC NO DIFF - 02/06/18 New Medications: Amlodipine (Norvasc) 5 Mg Tab 5 MG PO DAILY for HTN for 30 Days, #30 TAB Losartan (Cozaar) 25 Mg Tab 25 MG PO DAILY for HTN for 30 Days, #30 TAB Continued Medications: Albuterol 18 GM Inh (Ventolin Hfa 18 GM Inh) 90 Mcg/Act Aer 2 PUFF INH Q4-6H PRN for SHORTNESS OF BREATH, #1 INHALER 0 Refills Atorvastatin (Atorvastatin) 40 Mg Tab 40 MG PO HS for Cholesterol Management, #30 TAB 0 Refills B Complex W/ C (Vitamin B Complex-C) 1 Cap Cap Cholecalciferol (Decara) 50,000 Unit Cap 95933 UNITS PO Q7D for Nutritional Supplement, #30 CAP 0 Refills Donepezil (Donepezil) 5 Mg Tab 5 MG PO HS for Dementia, #30 TAB 0 Refills Metoprolol Tartrate (Metoprolol Tartrate) 25 Mg Tab 25 MG PO BID, #60 TAB 0 Refills Pantoprazole (Pantoprazole) 40 Mg Tab 40 MG PO DAILY for Manage Heartburn for 30 Days, #30 TAB Phenytoin Extended (Phenytoin Extended) 100 Mg Cap 100 MG PO BID for Control Seizures, #90 CAP 0 Refills Sertraline (Sertraline) 50 Mg Tab 50 MG PO DAILY, #30 TAB 0 Refills Trazodone (Trazodone) 50 Mg Tab 2 TAB PO HS for Control Depression, #30 TAB 0 Refills Discontinued Medications: Hydralazine HCl (Hydralazine HCl) 50 Mg Tablet 50 MG PO Q8HR for Blood Pressure Management for 30 Days, #90 TAB Hydrochlorothiazide (Hydrochlorothiazide) 25 Mg Tab 25 MG PO DAILY, #30 TAB 0 Refills Losartan (Losartan) 50 Mg Tab 50 MG PO DAILY for Blood Pressure Management, #30 TAB 0 Refills Nifedipine (Nifedipine ER) 90 Mg Tab 90 MG PO DAILY for Blood Pressure Management for 30 Days, #30 TAB Ama Phillips MD February 03, 2018 17:27
[2018-02-04] MEDS ORDERED: LOSARTAN 25 MG TAB PO SCH (09:00)
== END 2018-02-03 11:45 | disposition home health service (06) | DRG 281 ==
LOC: NEPE 09:18 → NEDA 12:50 → HCIS 14:41
PROVIDERS: ADMIT Internal Medicine; ATTEND Internal Medicine
PROC: B2111ZZ Fluoroscopy of Multiple Coronary Arteries using Low Osmolar Contrast (ICD-10-PCS; 2018-02-02)
PROC: 4A023N7 Measurement of Cardiac Sampling and Pressure, Left Heart, Percutaneous Approach (ICD-10-PCS; 2018-02-02)
PROC: B2151ZZ Fluoroscopy of Left Heart using Low Osmolar Contrast (ICD-10-PCS; 2018-02-02)
PROC: B4101ZZ Fluoroscopy of Abdominal Aorta using Low Osmolar Contrast (ICD-10-PCS; principal; 2018-02-02 07:30)
DX: I21.4 Non-ST elevation (NSTEMI) myocardial infarction (principal); N17.9 Acute kidney failure, unspecified; D69.6 Thrombocytopenia, unspecified; I71.2 Thoracic aortic aneurysm, without rupture; F03.90 Unspecified dementia, unspecified severity, without behavioral disturbance, psychotic disturbance, mood disturbance, and anxiety; I08.1 Rheumatic disorders of both mitral and tricuspid valves; J44.9 Chronic obstructive pulmonary disease, unspecified; N18.3 Chronic kidney disease, stage 3 (moderate); I13.10 Hypertensive heart and chronic kidney disease without heart failure, with stage 1 through stage 4 chronic kidney disease, or unspecified chronic kidney disease; R63.4 Abnormal weight loss; Z68.1 Body mass index [BMI] 19.9 or less, adult; G40.909 Epilepsy, unspecified, not intractable, without status epilepticus; I25.10 Atherosclerotic heart disease of native coronary artery without angina pectoris; I71.4 Abdominal aortic aneurysm, without rupture; F17.210 Nicotine dependence, cigarettes, uncomplicated; K21.9 Gastro-esophageal reflux disease without esophagitis; F32.9 Major depressive disorder, single episode, unspecified; R73.03 Prediabetes; E78.5 Hyperlipidemia, unspecified
CPT/HCPCS: 71045; 71275; 74174; 80048; 80053; 82550; 82552; 84484; 85002; 85014; 85018; 85025; 85610; 85730; 86850; 86900; 86901; 93005; 93458; 93567; 99152; 99153; C1769; C1893; J1644; J2250; J2270; J7030; J7040; Q9967

== ENCOUNTER 2018-03-28 22:19 | Inpatient (IN) ==
--- NOTE | 2018-03-28 23:39 | XR ---
EXAM DATE: 03/28/2018 11:34 PM EDT AGE/SEX: 78 years / Female INDICATIONS: Chest pain. CLINICAL DATA: This is the patient's initial encounter. Patient reports that signs and symptoms have been present for 1 day and indicates a pain score of 6/10. MEDICAL/SURGICAL HISTORY: None. None. COMPARISON: [facility] [place], CTA THORACIC ABDOMINAL AORTA W 3D RECON, 02/01/2018. . FINDINGS: Lungs are focally clear. No pleural effusion is identified. Accounting for rotation, cardiac contours are stable with known tortuosity and dilatation of the aorta. CONCLUSION: Stable chest appearance Electronically signed by: Vaughn Justice MD 03/28/2018 11:38 PM EDT
[2018-03-28 23:48] LABS: Baso % (Auto) 0.1 % (0.0-2.0); Hematocrit 36.4 % (35.0-46.0); Hemoglobin 12.2 gm/dL (11.6-15.3); Lymph # (Auto) 1.1 th/mm3 (1.0-4.8); Lymph % (Auto) 10.6 % (9.0-44.0); Mean Corpuscular HGB Conc 33.6 % (32.0-36.0); Mean Corpuscular Hemoglobin 32.1 pg (27.0-34.0); Mean Corpuscular Volume 95.3 fL (80.0-100.0); Mean Platelet Volume 9.4 fL (7.0-11.0); Mono # (Auto) 1.4 th/mm3 (0.0-0.9); Mono % (Auto) 13.2 % (0.0-8.0); Neut % (Auto) 76.1 % (16.0-70.0); Platelet Count 141 th/mm3 (150-450); Red Blood Count 3.82 mil/mm3 (4.00-5.30); Red Cell Distribution Width 14.9 % (11.6-17.2); White Blood Count 10.5 th/mm3 (4.0-11.0)
[2018-03-29 00:04] LABS: Activated Partial Thrombo Time 31.5 sec (24.3-30.1); INR 1.2 Ratio
--- NOTE | 2018-03-29 00:09 | ED ---
HPI General Chief Complaint: Chest Pain Stated Complaint: ABD/Chest Pain Time Seen by Provider: 03/28/18 22:30 History of Present Illness HPI narrative: Patient is having off-and-on chest pain for 3 days she is having off and on diarrhea and vomiting and is known to have cardiac vascular disease she was cathed by Dr. Rivera in January she had some mild stenosis but no intervention was possible at that time she also has aneurysms that are inoperable she is coming in with nausea vomiting and mild chest pain EKG has inferior depressions in leads II, III and aVF and V1 has an elevation with a right bundle-branch as well as V2 has a right bundle-branch she has LV strain on her left V3 through V6 she is given nitro aspirin and sublingual nitro and I called to discuss her EKG with Dr. Rivera who does not think this is a STEMI. Miguel and I agree EKG does not appear as a STEMI Complete Quality Measures for STEMI Alert Patients Related Data Home Medications Medication Instructions Recorded Confirmed Unable to Obtain Home Meds 03/28/18 03/28/18 Allergies Allergy/AdvReac Type Severity Reaction Status Date / Time acetaminophen Allergy Unknown Nausea/Vomi Verified 03/28/18 22:26 ting codeine Allergy Unknown Nausea/Vomi Verified 03/28/18 22:26 ting *MDRO Multi-Drug Resistant Allergy Unknown Nausea/Vomi Uncoded 03/28/18 22:26 Organism ting MRI PRECAUTION AdvReac Severe ANEURYSM Uncoded 03/28/18 22:26 CLIP-([facility]) 01/05/09 DR. HERNANDEZ Review of Systems Except as stated in HPI: all other systems reviewed are negative [facility] Medical History Medical History Abdominal aortic aneurysm (AAA) (Acute) COPD (chronic obstructive pulmonary disease) (Acute) Cardiac abnormality (Acute) H/O: hysterectomy (Acute) HTN (hypertension) (Acute) PVD (peripheral vascular disease) (Acute) Seizure (Acute) Thoracic aortic aneurysm (Acute) Surgical History Surgical History History of cerebral aneurysm repair (Acute) Hx of cholecystectomy (Acute) Social History Social History Substance History: No History of Abuse Second Hand Smoke Exposure: No Smoking Status: Light tobacco smoker Tobacco Type: Cigarettes Cigarettes Per Day: 1 Years Smoked: 60 Pack-Years: 3.00 How Often Do You Have a Drink Containing Alcohol: Never Hx Recent Travel: No Recent Travel in [facility] within the Last 8 Weeks: No Recent Out of Country Travel within the Last 8 Weeks: No Immunization History Tetanus Immunization: <5 Years Hx Influenza Vaccine This Season: No Exam Narrative Exam Narrative: GENERAL: thin body habitus no diaphoresis SKIN: Warm and dry. HEAD: Atraumatic. Normocephalic. EYES: Pupils equal and round. No scleral icterus. No injection or drainage. ENT: No nasal bleeding or discharge. Mucous membranes pink and moist. NECK: Trachea midline. No JVD. CARDIOVASCULAR: Regular rate and rhythm. RESPIRATORY: No accessory muscle use. Clear to auscultation. Breath sounds equal bilaterally. GASTROINTESTINAL: Abdomen soft, non-tender, nondistended. Hepatic and splenic margins not palpable. MUSCULOSKELETAL: Extremities without clubbing, cyanosis, or edema. No obvious deformities. NEUROLOGICAL: Awake and alert. No obvious cranial nerve deficits. Motor grossly within normal limits. Five out of 5 muscle strength in the arms and legs. Normal speech. PSYCHIATRIC: Appropriate mood and affect; insight and judgment normal. Course Initial Documented Vital Signs Temperature 97.3 F L 03/28/18 22:23 Pulse Rate 100 H 03/28/18 22:23 Respiratory Rate 16 03/28/18 22:23 Blood Pressure 133/77 03/28/18 22:23 Pulse Oximetry 99 03/28/18 22:23 Last Documented Vital Signs Temperature 97.6 F 03/31/18 12:00 Pulse Rate 79 03/31/18 12:00 Respiratory Rate 25 H 03/31/18 12:00 Blood Pressure 115/75 03/31/18 12:00 Pulse Oximetry 95 03/31/18 12:00 Medical Decision Making [facility] Narrative Medical decision making narrative: ekg faxed to Cards Miguel agreed with my interpretation NO Stemi pt treated medically and admitted for CP Differential Diagnosis Differential Diagnosis: Includes gastritis versus GERD reflux esophagitis versus ischemic chest pain versus panic otitis versus gallstones versus other Lab Data Result diagrams: 03/30/18 06:02 03/30/18 06:02 Lab Results 03/28/18 03/28/18 03/28/18 Range/Units 23:16 23:16 23:16 WBC 10.5 (4.0-11.0) th/mm3 RBC 3.82 L (4.00-5.30) mil/mm3 Hgb 12.2 (11.6-15.3) gm/dL Hct 36.4 (35.0-46.0) % MCV 95.3 (80.0-100.0) fL MCH 32.1 (27.0-34.0) pg MCHC 33.6 (32.0-36.0) % RDW 14.9 (11.6-17.2) % Plt Count 141 L (150-450) th/mm3 MPV 9.4 (7.0-11.0) fL Neut % (Auto) 76.1 H (16.0-70.0) % Lymph % (Auto) 10.6 (9.0-44.0) % [place] % (Auto) 13.2 H (0.0-8.0) % Eos % (Auto) 0.0 (0.0-4.0) % Baso % (Auto) 0.1 (0.0-2.0) % Neut # (Auto) 8.0 H (1.8-7.7) th/mm3 Lymph # (Auto) 1.1 (1.0-4.8) th/mm3 [place] # (Auto) 1.4 H (0.0-0.9) th/mm3 Eos # (Auto) 0.0 (0.0-0.4) th/mm3 Baso # (Auto) 0.0 (0.0-0.2) th/mm3 WBC Differential . Differential Comment Auto diff final PT 12.0 H (9.8-11.6) sec INR 1.2 Ratio APTT 31.5 H (24.3-30.1) sec Sodium 136 (136-145) meq/L Potassium 3.2 L (3.5-5.1) meq/L Chloride 100 (98-107) meq/L Carbon Dioxide 21.2 (21.0-32.0) meq/L Anion Gap 15 (5-15) meq/L BUN 34 H (7-18) mg/dL Creatinine 0.94 (0.50-1.00) mg/dL Estimated GFR 70 L (>89) mL/min Random Glucose 115 H (74-106) mg/dL Calcium 9.1 (8.5-10.1) mg/dL Magnesium 2.2 (1.5-2.5) mg/dL Total Bilirubin 0.9 (0.2-1.0) mg/dL AST 32 (15-37) U/L ALT 19 (10-53) U/L Alkaline Phosphatase 122 H (45-117) U/L Total Creatine Kinase 42 (26-192) U/L Troponin I Less than 0.02 L (0.02-0.05) ng/mL Total Protein 7.6 (6.4-8.2) g/dL Albumin 3.2 L (3.4-5.0) g/dL Nasal Screen MRSA (PCR) (Negative) 03/29/18 03/29/18 03/30/18 Range/Units 04:15 17:01 06:02 WBC 8.4 (4.0-11.0) th/mm3 RBC 3.75 L (4.00-5.30) mil/mm3 Hgb 11.9 (11.6-15.3) gm/dL Hct 35.9 (35.0-46.0) % MCV 95.6 (80.0-100.0) fL MCH 31.6 (27.0-34.0) pg MCHC 33.0 (32.0-36.0) % RDW 14.8 (11.6-17.2) % Plt Count 121 L (150-450) th/mm3 MPV 8.7 (7.0-11.0) fL Neut % (Auto) 75.7 H (16.0-70.0) % Lymph % (Auto) 12.2 (9.0-44.0) % [place] % (Auto) 11.6 H (0.0-8.0) % Eos % (Auto) 0.3 (0.0-4.0) % Baso % (Auto) 0.2 (0.0-2.0) % Neut # (Auto) 6.4 (1.8-7.7) th/mm3 Lymph # (Auto) 1.0 (1.0-4.8) th/mm3 [place] # (Auto) 1.0 H (0.0-0.9) th/mm3 Eos # (Auto) 0.0 (0.0-0.4) th/mm3 Baso # (Auto) 0.0 (0.0-0.2) th/mm3 WBC Differential . Differential Comment Auto diff final PT (9.8-11.6) sec INR Ratio APTT (24.3-30.1) sec Sodium (136-145) meq/L Potassium (3.5-5.1) meq/L Chloride (98-107) meq/L Carbon Dioxide (21.0-32.0) meq/L Anion Gap (5-15) meq/L BUN (7-18) mg/dL Creatinine (0.50-1.00) mg/dL Estimated GFR (>89) mL/min Random Glucose (74-106) mg/dL Calcium (8.5-10.1) mg/dL Magnesium (1.5-2.5) mg/dL Total Bilirubin (0.2-1.0) mg/dL AST (15-37) U/L ALT (10-53) U/L Alkaline Phosphatase (45-117) U/L Total Creatine Kinase 40 (26-192) U/L Troponin I Less than 0.02 L (0.02-0.05) ng/mL Total Protein (6.4-8.2) g/dL Albumin (3.4-5.0) g/dL Nasal Screen MRSA (PCR) Mrsa detected (Negative) 03/30/18 Range/Units 06:02 WBC (4.0-11.0) th/mm3 RBC (4.00-5.30) mil/mm3 Hgb (11.6-15.3) gm/dL Hct (35.0-46.0) % MCV (80.0-100.0) fL MCH (27.0-34.0) pg MCHC (32.0-36.0) % RDW (11.6-17.2) % Plt Count (150-450) th/mm3 MPV (7.0-11.0) fL Neut % (Auto) (16.0-70.0) % Lymph % (Auto) (9.0-44.0) % [place] % (Auto) (0.0-8.0) % Eos % (Auto) (0.0-4.0) % Baso % (Auto) (0.0-2.0) % Neut # (Auto) (1.8-7.7) th/mm3 Lymph # (Auto) (1.0-4.8) th/mm3 [place] # (Auto) (0.0-0.9) th/mm3 Eos # (Auto) (0.0-0.4) th/mm3 Baso # (Auto) (0.0-0.2) th/mm3 WBC Differential Differential Comment PT (9.8-11.6) sec INR Ratio APTT (24.3-30.1) sec Sodium 138 (136-145) meq/L Potassium 3.1 L (3.5-5.1) meq/L Chloride 104 (98-107) meq/L Carbon Dioxide 23.5 (21.0-32.0) meq/L Anion Gap 11 (5-15) meq/L BUN 34 H (7-18) mg/dL Creatinine 0.83 (0.50-1.00) mg/dL Estimated GFR 81 L (>89) mL/min Random Glucose 117 H (74-106) mg/dL Calcium 9.2 (8.5-10.1) mg/dL Magnesium (1.5-2.5) mg/dL Total Bilirubin (0.2-1.0) mg/dL AST (15-37) U/L ALT (10-53) U/L Alkaline Phosphatase (45-117) U/L Total Creatine Kinase (26-192) U/L Troponin I (0.02-0.05) ng/mL Total Protein (6.4-8.2) g/dL Albumin (3.4-5.0) g/dL Nasal Screen MRSA (PCR) (Negative) Imaging Data Radiologist's impression: Chest X-Ray 03/28/18 22:59 CONCLUSION: Stable chest appearance Thoracic Aorta CT 03/29/18 00:00 CONCLUSION: Acute dissection of the ascending aorta with contrast extravasation sparing aortic root with continued opacification of brachiocephalic vessels. There is associated mediastinal hematoma. Findings was discussed with Dr. Monroe at the time of dictation Discharge Plan Discharge Disposition Patient Disposition: 30 Still Patient Discharge Order Discharge Orders: Discharge Order (Routine); Ordered 03/31/18 Ordered By: Shelli Castro Physicians Team ED Provider: Rodo Carlson Primary Care Provider: UNKNOWN, Attending Provider: Shelli Castro Other Providers: Genesis Cadena ; Kale Gaytan ; Tyler Barber Status ED Status: Left Department Discharge Information Discharge Date/Time: 03/29/18 02:07
[2018-03-29 00:13] LABS: Alanine Aminotransferase 19 U/L (10-53); Albumin 3.2 g/dL (3.4-5.0); Anion Gap 15 meq/L (5-15); Aspartate Aminotransferase 32 U/L (15-37); Blood Urea Nitrogen 34 mg/dL (7-18); Calcium 9.1 mg/dL (8.5-10.1); Carbon Dioxide 21.2 meq/L (21.0-32.0); Chloride 100 meq/L (98-107); Glomerular Filtration Rate 70 mL/min (>89); Glucose,Random 115 mg/dL (74-106); Magnesium 2.2 mg/dL (1.5-2.5); Potassium 3.2 meq/L (3.5-5.1); Sodium 136 meq/L (136-145)
[2018-03-29 00:17] LABS: Alkaline Phosphatase 122 U/L (45-117); Total Protein 7.6 g/dL (6.4-8.2)
[2018-03-29 00:18] LABS: Creatine Kinase 42 U/L (26-192)
[2018-03-29] MEDS ORDERED: Metoprolol Tartrate 50 MG Tablet PO PRN (03:41)
[2018-03-29] MEDS ORDERED: amLODIPine 5 MG Tablet PO ONE (03:45)
[2018-03-29 05:17] LABS: Creatine Kinase 40 U/L (26-192)
--- NOTE | 2018-03-29 09:22 | P.HPCA ---
History of Present Illness Primary Care Physician: UNKNOWN Chief Complaint: Abdominal pain History of Present Illness: 78 year old female presents to ER for further evaluation of abdominal and chest pain. Onset Friday. Location lower abdominal. Characterizes intermittent sharp , shooting pain. Duration seconds, occurring in waves every 5-10 minutes. began vomiting intermittently, non-blood emesis and frequent loose stools. Endorses poor appetite. Diarrhea improving and vomiting resolved. Remains nauseous. No precipitating factors. Relieving factors sitting up or bending over, until pain subsides. No recent illness, fever or chills. In regards to chest pain, onset . Location multiple areas including substernal, right and left inframammary area. Chest pain occurs different areas at different times. Duration seconds. Characterized as "a dull, nagging pain." No radiation. No precipitating or relieving factors. She cannot recall home medications or reason medications are prescribed. No changes in urination, frequency, and denies dysuria. - Diagnosis (1) Abdominal aneurysm Inpatient Certification: I certify that the inpatient services were ordered in accordance with Medicare regulations governing the order. This includes certification that hospital inpatient services are reasonable and necessary and in the case of services not specified as inpatient-only under 42 CFR 419.22(n), that they are appropriately provided as inpatient services in accordance to with the 2-midnight benchmark under 43 CFR 412.3(e) Estimated Total Length of Stay (Days): 2 Plans for Post Hospital Care: Home Review of Systems Constitutional: Reports fatigue, Reports malaise, Denies body ache(s), Denies chills, Denies fever(s), Denies increased appetite, Denies weakness, Denies weight gain, Denies weight loss Cardiovascular: Reports chest pain at rest, Denies chest pain with activity, Denies generalized swelling, Denies irregular heart rhythm, Denies lightheadedness, Denies shortness of breath when lying down Comments: Continues to periods intermittent chest pains as stated above. Does not follow with a delivery assistant. History of abdominal and thoracic aneurysm, treated medically due to complexity. Respiratory: Denies chest congestion, Denies cough, Denies pain on inspiration, Denies shortness of breath Gastrointestinal: Reports abdominal pain, Denies black, tarry stools, Denies bright, red blood in stools, Denies change in bowel habits, Denies constipation , Denies cramping, Denies difficulty swallowing, Denies vomiting, Denies vomiting blood Comments: as stated above Genitourinary: Denies difficulty urinating, Denies painful urination, Denies urinary urgency Musculoskeletal: Denies muscle weakness Neurologic: Reports convulsions, Denies dizziness, Denies frequent falls, Denies lack of coordination, Denies tingling/numbness/burning sensations Comments: Treatment of seizure disorder. Last seizure reported many years ago. Endorses slight memory loss. Psychiatric: Denies anxiety, Denies depression PMF - History History Provided By: Patient (Past Cardiac Testing-Cardiac catheterization (Dr Rivera) Impression:Unremarkable hemodynamics. Normal ejection fraction. Mild coronary artery disease large abdominal aortic aneurysm artery known. Occlusion of left common iliac. Acute marginal 90% stenosis not felt to be candidate for intervention.) - Medical History Medical History: Medical History (Last Updated 03/29/18 @ 11:06 by ROBINA Love) Abdominal aortic aneurysm (AAA) COPD (chronic obstructive pulmonary disease) Cardiac abnormality H/O: hysterectomy HTN (hypertension) PVD (peripheral vascular disease) Seizure Thoracic aortic aneurysm - Surgical History Surgical History: Surgical History (Last Updated 03/29/18 @ 11:25 by ROBINA Love) History of cerebral aneurysm repair Hx of cholecystectomy - Tobacco History Second Hand Smoke Exposure: No Tobacco Use In Past 30 Days: Yes Smoking Status: Light tobacco smoker Tobacco Type: Cigarettes Cigarettes Per Day: 1 Years Smoked: 60 - Alcohol History How Often Do You Have a Drink Containing Alcohol: Never - Substance Use History Substance History: No History of Abuse - Travel History History of Recent Travel: No Recent Travel in the [place] Within the Last 8 Weeks: No Recent Travel Out of the Country Within the Last 8 Weeks: No - Immunization History Tetanus Immunization: <5 Years Hx Influenza Vaccine This Season: No Medications and Allergies Active Medications: Active Medications PATIENT UNAWARE OF HOME MEDICATIONS AND DOES HAVE A LIST AVAILABLE FOR REVIEW Potassium Chloride/Sodium Chloride (Ns + Kcl 20 Meq Inj) 1,000 mls @ 84 mls/hr IV.CONT .[id number] [facility] Last Admin: 03/29/18 05:25 Dose: 84 mls/hr Metoclopramide HCl (Reglan Inj) 5 mg IV.PUSH Q6H PRN PRN Reason: NAUSEA OR VOMITING Last Admin: 03/29/18 05:24 Dose: 5 mg Metoprolol Tartrate (Lopressor) 50 mg PO Q8H PRN PRN Reason: SYS BP GREATER/= THAN 160 MM[facility] Last Admin: 03/29/18 05:24 Dose: 50 mg Nitroglycerin (Nitrostat Sl) 0.4 mg SL Q5M PRN PRN Reason: CHEST PAIN Sodium Chloride (Ns Flush) 2 ml IV.FLUSH PRN PRN PRN Reason: FLUSH AFTER USING IV ACCESS Sodium Chloride (Ns Flush) 2 ml IV.FLUSH BID ALICIA Last Admin: 03/29/18 09:06 Dose: Not Given Allergies Allergy/AdvReac Type Severity Reaction Status Date / Time acetaminophen Allergy Unknown Nausea/Vomi Verified 03/28/18 22:26 ting codeine Allergy Unknown Nausea/Vomi Verified 03/28/18 22:26 ting *MDRO Multi-Drug Resistant Allergy Unknown Nausea/Vomi Uncoded 03/28/18 22:26 Organism ting MRI PRECAUTION AdvReac Severe ANEURYSM Uncoded 03/28/18 22:26 CLIP-([facility]) 01/05/09 DR. HERNANDEZ Home Medications Medication Instructions Recorded Confirmed Type Unable to Obtain Home Meds 03/28/18 03/28/18 History Exam Vital signs: Vital Signs 03/28/18 22:23 03/28/18 22:36 03/28/18 22:59 Temperature 97.3 F L Pulse Rate 100 H 96 H 93 H Respiratory Rate 16 18 20 Blood Pressure 133/77 139/97 H Pulse Oximetry 99 96 99 03/28/18 23:09 03/29/18 02:24 03/29/18 07:00 Temperature 97.9 F Pulse Rate 104 H Respiratory Rate 19 12 Blood Pressure 160/97 H Pulse Oximetry 99 99 03/29/18 07:55 03/29/18 08:00 Temperature 98.3 F Pulse Rate 79 Respiratory Rate 16 Blood Pressure 151/109 H Pulse Oximetry 99 99 Intake & Output 03/28/18 03/29/18 03/29/18 18:59 06:59 18:59 Weight 40 kg Other: # Voids 1 Narrative: 78 year old frail, thin, pleasant -[place] female. - Constitutional mild distress, thin, cachectic, cooperative Comments: No acute distress until develops lower abdominal pain, then appears to be in mild to moderate distress for approx 30 seconds. - Routine HEENT Exam Head: Present: normocephalic, atraumatic ENT: Present: mucous membranes moist. Absent: dentition normal - Routine Neck Exam Present: supple, full ROM. Absent: JVD, carotid bruit - Routine Chest/Breast/Axilla Exam Chest wall: Absent: tenderness - Routine Respiratory Exam Present: diminished air movement. Absent: rhonchi, wheezes, crackles Comments: 2/6 systolic murmur - Routine Cardiovascular Exam Present: RRR, murmur Comments: +bilateral femoral pulses - Routine Abdominal Exam Present: soft, tenderness. Absent: distended, firm, rigid - Routine Extremities Exam Absent: edema, full ROM - Detailed Extremities Exam: Vascular Peripheral pulses: 2+ femoral (L), 2+ femoral (R) - Routine Skin Exam Present: intact, dry, warm - Routine Neurological Exam Present: alert, oriented X3, CN II-XII intact, normal speech - Routine Psychiatric Exam Present: normal affect, normal thought process, cooperative, good insight, good judgment Results 03/28/18 23:16 03/28/18 23:16 Cardiac Enzymes 03/28/18 03/29/18 Range/Units 23:16 04:15 AST 32 (15-37) U/L Troponin I Less than 0.02 L Less than 0.02 L (0.02-0.05) ng/mL Coagulation 03/28/18 Range/Units 23:16 PT 12.0 H (9.8-11.6) sec APTT 31.5 H (24.3-30.1) sec CBC 03/28/18 Range/Units 23:16 WBC 10.5 (4.0-11.0) th/mm3 RBC 3.82 L (4.00-5.30) mil/mm3 Hgb 12.2 (11.6-15.3) gm/dL Hct 36.4 (35.0-46.0) % Plt Count 141 L (150-450) th/mm3 Neut # (Auto) 8.0 H (1.8-7.7) th/mm3 Lymph # (Auto) 1.1 (1.0-4.8) th/mm3 [place] # (Auto) 1.4 H (0.0-0.9) th/mm3 Eos # (Auto) 0.0 (0.0-0.4) th/mm3 Baso # (Auto) 0.0 (0.0-0.2) th/mm3 Comprehensive Metabolic Panel 03/28/18 Range/Units 23:16 Sodium 136 (136-145) meq/L Potassium 3.2 L (3.5-5.1) meq/L Chloride 100 (98-107) meq/L Carbon Dioxide 21.2 (21.0-32.0) meq/L BUN 34 H (7-18) mg/dL Creatinine 0.94 (0.50-1.00) mg/dL Calcium 9.1 (8.5-10.1) mg/dL AST 32 (15-37) U/L ALT 19 (10-53) U/L Alkaline Phosphatase 122 H (45-117) U/L Total Protein 7.6 (6.4-8.2) g/dL Albumin 3.2 L (3.4-5.0) g/dL Intake and Output 03/28/18 03/29/18 03/29/18 22:59 06:59 14:59 Other: # Voids 1 Weight 40 kg - EKG Interpretation EKG: sinus rhythm (First EKG completed in ER-NSR, with ST elevation anterior wall with ST depression inferiorly. ER MD discussed this with on-call delivery assistant) EKG interpretations - EKG EKG results cardiology: sinus rhythm (Second EKG (completed 0900) NSR, no st elevation, diffuse t waves changes) Caprini VTE Risk Assessment Caprini VTE Risk Assessment: Moderate/High Risk (score >= 2) Caprini Risk Assessment Model: Point Value = 1 Point Value = 2 Point Value = 3 Point Value = 5 Age 41-60 Minor surgery BMI > 25 kg/m2 Swollen legs Varicose veins or History of unexplained or recurrent spontaneous Oral contraceptives or hormone replacement Sepsis (< 1 month) Serious lung disease, including pneumonia (< 1 month) Abnormal pulmonary function Acute myocardial infarction Congestive heart failure (< 1 month) History of inflammatory bowel disease Medical patient at bed rest Age 61-74 Arthroscopic surgery Major open surgery (> 45 min) Laparoscopic surgery (> 45 min) Malignancy Confined to bed (> 72 hours) Immobilizing plaster cast Central venous access Age >= 75 History of VTE Family history of VTE Factor V Leiden Prothrombin [id number] Lupus anticoagulant Anticardiolipin antibodies Elevated serum homocysteine Heparin-induced thrombocytopenia Other congenital or acquired thrombophilia Stroke (< 1 month) Elective arthroplasty Hip, pelvis, or leg fracture Acute spinal cord injury (< 1 month) Prophylaxis Regimen: Total Risk Factor Score Risk Level Prophylaxis Regimen 0-1 Low Early ambulation 2 Moderate Order ONE of the following: *Sequential Compression Device (SCD) *Heparin 5000 units SQ BID 3-4 Higher Order ONE of the following medications: *Heparin 5000 units SQ TID *Enoxaparin/Lovenox 40 mg SQ daily (WT < 150 kg, CrCl > 30 mL/min) *Enoxaparin/Lovenox 30 mg SQ daily (WT < 150 kg, CrCl > 10-29 mL/min) *Enoxaparin/Lovenox 30 mg SQ BID (WT < 150 kg, CrCl > 30 mL/min) AND/OR *Sequential Compression Device (SCD) 5 or more Highest Order ONE of the following medications: *Heparin 5000 units SQ TID (Preferred with Epidurals) *Enoxaparin/Lovenox 40 mg SQ daily (WT < 150 kg, CrCl > 30 mL/min) *Enoxaparin/Lovenox 30 mg SQ daily (WT < 150 kg, CrCl > 10-29 mL/min) *Enoxaparin/Lovenox 30 mg SQ BID (WT < 150 kg, CrCl > 30 mL/min) AND *Sequential Compression Device (SCD) Assessment and Plan - Assessment (1) Abdominal aneurysm Code(s): I71.4 - Abdominal aortic aneurysm, without rupture Status: Chronic Plan: Admitted chest pain center. Ruled out with 2 sets of EKGs and cardiac enzymes. Monitor on telemetry overnight. Seen and evaluated by Dr. Anthony Monroe. Discomfort likely related to known aneurysm. Repeat aorta CTA. Likely will require in patient hospital stay if changes are identified on repeat Aorta CTA.ST changes may reflect ischemia from known acute marginal stenosis, EKG since resolved and troponin remained unchanged. [address] Monroe and made aware of acute dissection. Dr. Monroe called online health and fitness coach vascular surgeon, Dr. Gaytan who will assess patient shortly. Discussed with RN. Informed patient of acute findings and consult for vascular surgeon. H&P: Quality - VTE Deep Vein Thrombosis/Pulmonary Embolism Present on Admission: No
--- NOTE | 2018-03-29 10:47 | P.PNCA ---
Subjective Interval history: 78-year-old very frail black lady with known ascending and descending aortic aneurysmal dilation and prior flap dissection has been previously evaluated by thoracic surgeon and is known not to be a candidate for surgical intervention. She developed severe sharp pain beginning in her low chest upper abdominal area and radiating in short severe episodes down all the way to her pubic area. She also began to have problems with nausea vomiting and diarrhea. She had a catheterization in January of this year which revealed no significant ischemic heart disease other than a small acute marginal which showed 90% stenosis. She was not felt to be a candidate for intervention. On admission her EKG showed ST elevation over the anterior wall with ST depression inferiorly. This was reviewed with Dr. Rivera who did not feel this was a STEMI in view of her known history but did recommend placement in the chest pain center to rule out ACS since she could potentially have a small ischemic segment from the acute marginal branch. However her history is provided now is entirely consistent with further extension of her aneurysm rather than cardiovascular issues and her EKG is now stabilized. She continues with fairly severe intermittent abdominal pain but if she is indeed not a candidate for further intervention about all that can be offered at this point would be blood pressure control and pain management. I did discuss with the patient her situation to determine if she understands the gravity and probability that this aneurysm will prove to be fatal at some point. Physical Exam Vital signs: Vital Signs 03/28/18 22:23 03/28/18 22:36 03/28/18 22:59 Temperature 97.3 F L Pulse Rate 100 H 96 H 93 H Respiratory Rate 16 18 20 Blood Pressure 133/77 139/97 H Pulse Oximetry 99 96 99 03/28/18 23:09 03/29/18 02:24 03/29/18 07:00 Temperature 97.9 F Pulse Rate 104 H Respiratory Rate 19 12 Blood Pressure 160/97 H Pulse Oximetry 99 99 03/29/18 07:55 03/29/18 08:00 Temperature 98.3 F Pulse Rate 88 Respiratory Rate 16 Blood Pressure 151/109 H Pulse Oximetry 99 99 Intake & Output 03/28/18 03/29/18 03/29/18 18:59 06:59 18:59 Weight 40 kg Other: # Voids 1 Narrative: The examination is in general as described Neck pulses are palpable bilaterally with no bruits no JVD Chest markedly diminished breath sounds diffusely but no rales wheezes or rhonchi Cardiovascular rhythm is regular there is a very soft systolic murmur but no gallops or rubs and no diastolic murmur was appreciated The abdomen is very thin and aortic aneurysm is clearly palpable and appears to be about 3 inches in diameter at its widest point. This entire area is also extremely tender. Femoral pulses are palpable bilaterally. Assessment and Plan - Plan This patient's current presentation is most consistent with further extension of her aneurysmal dissection which has been documented on prior studies. Her EKG changes may reflect some ischemia in the small acute marginal branch but probably did not constitute a significant level of concern at this time compared to her abdomen. The plan is to repeat studies of her thorax and abdomen to determine if there is evidence of further extension of the aneurysm. If there is she will need to be admitted for pain control and general medical management even if not a candidate for further intervention. If this is the case she should certainly be evaluated for either hospice or palliative care. If there is no evidence of extension then I would consider the addition of a long-acting nitrate to reduce the risk of ischemia in the acute marginal branch. Code Status: Full code however discussion needs to be carried out regards to the patient's wishes in this regard Discussed Condition With: I have tried to bluntly discuss the gravity of the situation with the patient and she seems to realize this. She indicates that this is all in the Lords hands and that she has had a good but tough life.
[2018-03-29] MEDS ORDERED: Iohexol 350 MG/ML 50 ML Vial (for Rad Diag) IVCONTRAST ONE (11:15)
--- NOTE | 2018-03-29 12:31 | CT ---
EXAM DATE: 03/29/2018 11:14 AM EDT AGE/SEX: 78 years / Female INDICATIONS: Chest Pain CLINICAL DATA: This is the patient's initial encounter. Patient reports that signs and symptoms have been present for 1 day and indicates a pain score of 5/10. MEDICAL/SURGICAL HISTORY: Cardiovascular disease. Hypertension. Aneurysm Cholecystectomy. RADIATION DOSE: 5.94 CTDI (mGy) COMPARISON: [facility] – [place], CTA THORACIC ABDOMINAL AORTA W 3D RECON, 02/01/2018. . TECHNIQUE: Volumetric scanning was performed using a multi-row detector CT scanner during bolus infu jose of 75ML ml Omnipaque 350 (iohexol) nonionic water-soluble contrast as a single exam dose. The data was post processed with a variety of visualization algorithms including full volume maximum inte nsity projection, multi-planar sliding thin slab reformation, curved planar reformation, and surface rendering techniques. Using automated exposure control and adjustment of the mA and/or kV according to patient size, radiation dose was kept as low as reasonably achievable to obtain optimal diagnostic quality images. DICOM format image data is available electronically for review and comparison. FINDINGS: There are centrilobular emphysematous changes throughout both lungs. No pulmonary nodules are identif ied. No pleural effusions are identified. Examination the mediastinum demonstrates acute mediastinal hematoma involving the aortic root with di ssection flap involving the ascending aorta. This does not extend to the aortic root and the coronary arteries are opacified via the true lumen. This begins proximal to the brachiocephalic vessels which are also opacified. There is aneurysmal dilatation of the transverse arch. The descending thoracic a pedro demonstrates aneurysmal dilatation with mural thrombus measuring maximally 8 cm which is unchang ed from the prior study. More proximally there is a second smaller aneurysm measuring 5 cm. There is aneurysmal dilatation of the abdominal aorta with extensive mural thrombus measuring 7 cm. This is at the aortic hiatus. There is an infrarenal aortic aneurysm with severe mural thrombus which is slight ly enlarged when compared to the prior study from 5 cm to 5.2 cm. Aneurysmal dilatation of the iliac arteries is unchanged. There is continued opacification of the celiac vessels superior mesenteric art sunni and renal arteries. The liver and spleen are normal in size and no focal defects are identified. The adrenal glands and kidneys appear normal bilaterally. No hydronephrosis or mass lesions are identified. There is a mult ilocular cystic mass with enhancing septations in the midpole the right kidney. This does not have th e criteria of simple cyst and may reflect carcinoma or perhaps a vascular lesion. There has been no s ignificant change when compared to the prior exam. The maximal diameter of this finding is 4 cm. The left kidney is unremarkable. Examination of the pelvis demonstrates no evidence of free fluid or pelv ic mass. No abnormally enlarged inguinal or retroperitoneal lymph nodes are present. The bladder is u nremarkable. CONCLUSION: Acute dissection of the ascending aorta with contrast extravasation sparing aortic root with continue d opacification of brachiocephalic vessels. There is associated mediastinal hematoma. Findings was discussed with Dr. Monroe at the time of dictation Electronically signed by: Brandt Winston MD 03/29/2018 12:30 PM EDT
--- NOTE | 2018-03-29 13:31 | P.CONVS ---
History of Present Illness Service: Vascular Surgery Consult date: 03/29/18 Requesting Physician: Anthony Monroe Reason for Consult: TAAA Primary Care Provider: UNKNOWN Chief Complaint: Abdominal pain History of Present Illness: 78 yo female with TAAA known for some time who presented to ED this morning with chest and abdominal pain, now only abdominal pain. Pain started . Previously told not a surgical candidate for TAAA by another surgeon. Pt in no distress at present. CTA shows TAAA and ascending aortic dissection. Review of Systems Constitutional: Reports weakness Cardiovascular: Reports chest pain Respiratory: Reports shortness of breath Gastrointestinal: Reports abdominal pain PMFSH - History History Provided By: Patient (Past Cardiac Testing-Cardiac catheterization (Dr Rivera) Impression:Unremarkable hemodynamics. Normal ejection fraction. Mild coronary artery disease large abdominal aortic aneurysm artery known. Occlusion of left common iliac. Acute marginal 90% stenosis not felt to be candidate for intervention.) - Medical History Medical History: Medical History (Last Updated 03/29/18 @ 11:06 by ROBINA Love) Abdominal aortic aneurysm (AAA) COPD (chronic obstructive pulmonary disease) Cardiac abnormality H/O: hysterectomy HTN (hypertension) PVD (peripheral vascular disease) Seizure Thoracic aortic aneurysm - Surgical History Surgical History: Surgical History (Last Updated 03/29/18 @ 11:25 by ROBINA Love) History of cerebral aneurysm repair Hx of cholecystectomy - Tobacco History Second Hand Smoke Exposure: No Tobacco Use In Past 30 Days: Yes Smoking Status: Light tobacco smoker Tobacco Type: Cigarettes Cigarettes Per Day: 1 Years Smoked: 60 - Alcohol History How Often Do You Have a Drink Containing Alcohol: Never - Substance Use History Substance History: No History of Abuse - Travel History History of Recent Travel: No Recent Travel in the [place] Within the Last 8 Weeks: No Recent Travel Out of the Country Within the Last 8 Weeks: No - Immunization History Tetanus Immunization: <5 Years Hx Influenza Vaccine This Season: No Medications and Allergies Active Medications: Active Medications Potassium Chloride/Sodium Chloride (Ns + Kcl 20 Meq Inj) 1,000 mls @ 84 mls/hr IV.CONT .[id number] [facility] Last Admin: 03/29/18 05:25 Dose: 84 mls/hr Metoclopramide HCl (Reglan Inj) 5 mg IV.PUSH Q6H PRN PRN Reason: NAUSEA OR VOMITING Last Admin: 03/29/18 05:24 Dose: 5 mg Metoprolol Tartrate (Lopressor) 50 mg PO Q8H PRN PRN Reason: SYS BP GREATER/= THAN 160 MMHG Last Admin: 03/29/18 05:24 Dose: 50 mg Morphine Sulfate (Morphine Inj) 2 mg IV.PUSH Q4H PRN PRN Reason: PAIN SCALE 4 TO 6 MODERATE Nitroglycerin (Nitrostat Sl) 0.4 mg SL Q5M PRN PRN Reason: CHEST PAIN Sodium Chloride (Ns Flush) 2 ml IV.FLUSH PRN PRN PRN Reason: FLUSH AFTER USING IV ACCESS Sodium Chloride (Ns Flush) 2 ml IV.FLUSH BID ALICIA Last Admin: 03/29/18 09:06 Dose: Not Given Allergies Allergy/AdvReac Type Severity Reaction Status Date / Time acetaminophen Allergy Unknown Nausea/Vomi Verified 03/28/18 22:26 ting codeine Allergy Unknown Nausea/Vomi Verified 03/28/18 22:26 ting *MDRO Multi-Drug Resistant Allergy Unknown Nausea/Vomi Uncoded 03/28/18 22:26 Organism ting MRI PRECAUTION AdvReac Severe ANEURYSM Uncoded 03/28/18 22:26 CLIP-(JLT) 01/05/09 DR. HERNANDEZ Home Medications Medication Instructions Recorded Confirmed Type Unable to Obtain Home Meds 03/28/18 03/28/18 History Physical Exam Vital Signs / I&O: Vital Signs 03/28/18 22:23 03/28/18 22:36 03/28/18 22:59 Temperature 97.3 F L Pulse Rate 100 H 96 H 93 H Respiratory Rate 16 18 20 Blood Pressure 133/77 139/97 H Pulse Oximetry 99 96 99 03/28/18 23:09 03/29/18 02:24 03/29/18 07:00 Temperature 97.9 F Pulse Rate 104 H Respiratory Rate 19 12 Blood Pressure 160/97 H Pulse Oximetry 99 99 03/29/18 07:55 03/29/18 08:00 03/29/18 10:00 Temperature 98.3 F Pulse Rate 88 78 Respiratory Rate 16 Blood Pressure 151/109 H 162/100 H Pulse Oximetry 99 99 Intake & Output 03/28/18 03/29/18 03/29/18 18:59 06:59 18:59 Weight 40 kg Other: # Voids 1 Date of Last Bowel Movement 03/29/18 # Bowel Movements 1 Neuro: alert, no distress HEENT: NC/AT; anicteric sclera Neck: skinny, palpable supraclavicular pulses Heart: reg rate Lungs: nonlabored Abdomen: palpable nontender abdominal mass, pulsatile Vascular: palpable R femoral pulse but no left femoral pulse Laboratory Results - last 24 hr 03/28/18 03/28/18 03/28/18 23:16 23:16 23:16 WBC 10.5 RBC 3.82 L Hgb 12.2 Hct 36.4 MCV 95.3 MCH 32.1 MCHC 33.6 RDW 14.9 Plt Count 141 L MPV 9.4 Neut % (Auto) 76.1 H Lymph % (Auto) 10.6 [place] % (Auto) 13.2 H Eos % (Auto) 0.0 Baso % (Auto) 0.1 Neut # (Auto) 8.0 H Lymph # (Auto) 1.1 [place] # (Auto) 1.4 H Eos # (Auto) 0.0 Baso # (Auto) 0.0 WBC Differential . Differential Comment Auto diff final PT 12.0 H INR 1.2 APTT 31.5 H Sodium 136 Potassium 3.2 L Chloride 100 Carbon Dioxide 21.2 Anion Gap 15 BUN 34 H Creatinine 0.94 Estimated GFR 70 L Random Glucose 115 H Calcium 9.1 Magnesium 2.2 Total Bilirubin 0.9 AST 32 ALT 19 Alkaline Phosphatase 122 H Total Creatine Kinase 42 Troponin I Less than 0.02 L Total Protein 7.6 Albumin 3.2 L 03/29/18 04:15 WBC RBC Hgb Hct MCV MCH MCHC RDW Plt Count MPV Neut % (Auto) Lymph % (Auto) [place] % (Auto) Eos % (Auto) Baso % (Auto) Neut # (Auto) Lymph # (Auto) [place] # (Auto) Eos # (Auto) Baso # (Auto) WBC Differential Differential Comment PT INR APTT Sodium Potassium Chloride Carbon Dioxide Anion Gap BUN Creatinine Estimated GFR Random Glucose Calcium Magnesium Total Bilirubin AST ALT Alkaline Phosphatase Total Creatine Kinase 40 Troponin I Less than 0.02 L Total Protein Albumin Impressions Chest X-Ray 03/28/18 22:59 CONCLUSION: Stable chest appearance Thoracic Aorta CT 03/29/18 00:00 CONCLUSION: Acute dissection of the ascending aorta with contrast extravasation sparing aortic root with continued opacification of brachiocephalic vessels. There is associated mediastinal hematoma. Findings was discussed with Dr. 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 1. For the TAAA, no surgery should ever be performed as the mortality would be exceedingly high. The patient agrees and in fact has been told this in the past. 2. Her more immediate life-threatening condition is the ascending dissection, which is treated by CT surgery. I have consulted Dr. Boothe and he is seeing the patient at present. No follow-up needed from my standpoint. Kale Gaytan MD FACS RPVI linotype machinist apprentice [facility] at [facility] [phone]
[2018-03-29] MEDS: Morphine Inj 4 MG/ML Vial IV.PUSH PRN ×3 (13:51→20:58)
--- NOTE | 2018-03-29 13:51 | P.CON ---
History of Present Illness Service: CT Surgery Consult date: 03/29/18 Requesting Physician: Anthony Monroe Reason for Consult: Acute type A aortic dissection Primary Care Provider: UNKNOWN Chief Complaint: Abdominal pain History of Present Illness: 78y/o female presents with chest pain since yesterday. She presented to the ED hypertensive and ultimately underwent chest CTA which shows an acute type A dissection as well as a large thoracoabdominal aneurysm. The dissection appears to originate above the right coronary artery and involves the arch. There is mediastinal hematoma and edema. Review of Systems Constitutional: Reports anorexia, Reports fatigue, Reports lack of energy, Reports weight loss, Denies body ache(s), Denies chills, Denies daytime sleepiness, Denies excessive sweating, Denies fever(s), Denies headache(s), Denies increased appetite, Denies malaise, Denies night sweats, Denies weakness , Denies weight gain, Denies other Eyes: Denies blind spots, Denies blurry vision, Denies bulging eyes, Denies change in vision, Denies double vision, Denies discharge, Denies dry eyes, Denies floaters, Denies irritation, Denies itchy eyes, Denies loss of vision, Denies pain, Denies requires corrective lenses, Denies sensitivity to light, Denies other Ears, Nose, Mouth, and Throat: Denies abnormal hearing, Denies bleeding gums, Denies bad breath, Denies change in voice, Denies dental pain, Denies difficulty swallowing, Denies dizziness, Denies dry mouth, Denies ear discharge , Denies ear pain, Denies facial pain, Denies headache(s), Denies hearing loss, Denies hoarseness, Denies lip swelling, Denies nosebleed, Denies mouth lesions, Denies mouth pain, Denies nasal congestion, Denies nasal discharge, Denies nasal obstruction, Denies nasal trauma, Denies neck lump, Denies neck pain, Denies nose pain, Denies pain with swallowing, Denies poor balance, Denies post nasal drip, Denies ringing in the ears, Denies sinus pain, Denies sinus pressure , Denies sore throat, Denies throat swelling, Denies tongue swelling, Denies other Cardiovascular: Reports chest pain, Reports chest pain at rest, Denies chest pain with activity, Denies excessive sweating, Denies fainting, Denies fast heart rate, Denies foot swelling, Denies generalized swelling, Denies irregular heart rhythm, Denies leg pain with activity, Denies leg sores, Denies leg swelling, Denies lightheadedness, Denies radiating jaw, neck or arm pain, Denies rapid, pounding, or irregular heartbeat, Denies shortness of breath, Denies shortness of breath with activity, Denies shortness of breath when lying down, Denies shortness of breath causing sudden awakening, Denies slow heart rate, Denies other Respiratory: Denies change in phlegm color, Denies chest congestion, Denies cough, Denies coughing up blood, Denies excessive phlegm production, Denies pain on inspiration, Denies pain with cough, Denies shortness of breath, Denies shortness of breath with activity, Denies snoring, Denies stridor, Denies wheezing, Denies other Gastrointestinal: Denies abdominal pain, Denies belching, Denies black, tarry stools, Denies bloating, Denies bright, red blood in stools, Denies change in bowel habits, Denies constant urge to pass stool, Denies change in stools, Denies coffee ground vomit, Denies constipation, Denies cramping, Denies difficulty swallowing, Denies excessive passing of gas, Denies feeling full early, Denies heartburn, Denies incontinent of stools, Denies loose stools, Denies nausea, Denies pain with swallowing, Denies vomiting, Denies vomiting blood, Denies other Genitourinary: Denies abnormal periods, Denies abnormal vaginal bleeding, Denies absent period, Denies bleeding between periods, Denies blood in urine, Denies difficulty starting urination, Denies difficulty urinating, Denies dribbling after urination, Denies frequent nighttime urination, Denies genital itching, Denies genital lesions, Denies heavy periods, Denies hot flashes, Denies light periods, Denies nipple discharge, Denies painful intercourse, Denies painful periods, Denies painful urination, Denies pelvic pain, Denies prolapse symptoms, Denies sexual problems, Denies side pain, Denies urinary incontinence, Denies urinary urgency, Denies vaginal discharge, Denies vaginal dryness, Denies vaginal odor, Denies vaginal itching, Denies other Musculoskeletal: Reports joint pain, Reports limited joint movement, Denies abnormal walking, Denies back pain, Denies body aches, Denies decreased muscle mass, Denies deformity, Denies joint swelling, Denies loss of height, Denies muscle cramps, Denies muscle weakness, Denies neck pain, Denies numbness, Denies radiating pain into limb, Denies stiffness, Denies tingling, Denies other Skin/Breast: Denies acne, Denies bleeding lesions, Denies boil, Denies breast swelling, Denies breast skin changes, Denies breast pain, Denies breast lump, Denies change in breast shape, Denies change in hair, Denies change in skin color, Denies changing lesions, Denies dry skin, Denies excessive hair growth, Denies hair loss, Denies itching, Denies lesions, Denies nail changes, Denies new lesions, Denies nipple discharge, Denies non-healing lesions, Denies redness , Denies sensitivity to light, Denies rash, Denies skin pain, Denies skin ulcer , Denies sores, Denies stretch jacob, Denies unusual bruising, Denies wounds, Denies yellowing of the skin, Denies other Neurologic: Denies abnormal hearing, Denies abnormal movements, Denies abnormal speech, Denies abnormal walking, Denies behavioral changes, Denies burning sensations, Denies confusion, Denies dizziness, Denies fainting, Denies frequent falls, Denies headache(s), Denies lack of coordination, Denies localized weakness, Denies loss of vision, Denies memory loss, Denies numbness, Denies other visual disturbances, Denies radiating pain, Denies restless legs, Denies convulsions, Denies seizure-like activity, Denies sensory deficit, Denies tingling, Denies tingling/numbness/burning sensations, Denies tremor(s), Denies unsteadiness, Denies weakness, Denies other Psychiatric: Denies abnormal sleep pattern, Denies anxiety, Denies behavioral changes, Denies change in appetite, Denies change in sex drive, Denies confusion , Denies depression, Denies difficulty concentrating, Denies hearing things others do not hear, Denies hopelessness, Denies irritability, Denies lack of enjoyment, Denies memory loss, Denies mood swings, Denies panic attacks, Denies paranoia, Denies seeing things others do not see, Denies sensing things others do not sense, Denies tactile hallucinations, Denies thoughts of hurting/killing others, Denies thoughts of hurting/killing yourself, Denies other Endocrine: Denies cold intolerance, Denies excessive sweating, Denies flushing, Denies heat intolerance, Denies increased hunger, Denies increased thirst, Denies increased urination, Denies rapid, pounding, or irregular heartbeat, Denies other Hematologic/Lymphatic: Denies easy bleeding, Denies easy bruising, Denies enlarged lymph nodes, Denies other Allergic/Immunologic: Denies GI upset with certain foods, Denies hives, Denies itchy eyes, Denies lip swelling, Denies seasonal runny nose, Denies throat swelling, Denies tongue swelling, Denies wheezing, Denies other PMFSH - History History Provided By: Patient (Past Cardiac Testing-Cardiac catheterization (Dr Rivera) Impression:Unremarkable hemodynamics. Normal ejection fraction. Mild coronary artery disease large abdominal aortic aneurysm artery known. Occlusion of left common iliac. Acute marginal 90% stenosis not felt to be candidate for intervention.) - Medical History Medical History: Medical History (Last Updated 03/29/18 @ 11:06 by ROBINA Love) Abdominal aortic aneurysm (AAA) COPD (chronic obstructive pulmonary disease) Cardiac abnormality H/O: hysterectomy HTN (hypertension) PVD (peripheral vascular disease) Seizure Thoracic aortic aneurysm - Surgical History Surgical History: Surgical History (Last Updated 03/29/18 @ 11:25 by ROBINA Love) History of cerebral aneurysm repair Hx of cholecystectomy - Tobacco History Second Hand Smoke Exposure: No Tobacco Use In Past 30 Days: Yes Smoking Status: Light tobacco smoker Tobacco Type: Cigarettes Cigarettes Per Day: 1 Years Smoked: 60 - Alcohol History How Often Do You Have a Drink Containing Alcohol: Never - Substance Use History Substance History: No History of Abuse - Travel History History of Recent Travel: No Recent Travel in the [place] Within the Last 8 Weeks: No Recent Travel Out of the Country Within the Last 8 Weeks: No - Immunization History Tetanus Immunization: <5 Years Hx Influenza Vaccine This Season: No Medications and Allergies Active Medications: Active Medications Potassium Chloride/Sodium Chloride (Ns + Kcl 20 Meq Inj) 1,000 mls @ 84 mls/hr IV.CONT .[id number] [facility] Last Admin: 03/29/18 05:25 Dose: 84 mls/hr Metoclopramide HCl (Reglan Inj) 5 mg IV.PUSH Q6H PRN PRN Reason: NAUSEA OR VOMITING Last Admin: 03/29/18 05:24 Dose: 5 mg Metoprolol Tartrate (Lopressor) 50 mg PO Q8H PRN PRN Reason: SYS BP GREATER/= THAN 160 [facility] Last Admin: 03/29/18 05:24 Dose: 50 mg Morphine Sulfate (Morphine Inj) 2 mg IV.PUSH Q4H PRN PRN Reason: PAIN SCALE 4 TO 6 MODERATE Nitroglycerin (Nitrostat Sl) 0.4 mg SL Q5M PRN PRN Reason: CHEST PAIN Sodium Chloride (Ns Flush) 2 ml IV.FLUSH PRN PRN PRN Reason: FLUSH AFTER USING IV ACCESS Sodium Chloride (Ns Flush) 2 ml IV.FLUSH BID [facility] Last Admin: 03/29/18 09:06 Dose: Not Given Allergies Allergy/AdvReac Type Severity Reaction Status Date / Time acetaminophen Allergy Unknown Nausea/Vomi Verified 03/28/18 22:26 ting codeine Allergy Unknown Nausea/Vomi Verified 03/28/18 22:26 ting *MDRO Multi-Drug Resistant Allergy Unknown Nausea/Vomi Uncoded 03/28/18 22:26 Organism ting MRI PRECAUTION AdvReac Severe ANEURYSM Uncoded 03/28/18 22:26 CLIP-(T) 01/05/09 DR. HERNANDEZ Home Medications Medication Instructions Recorded Confirmed Type Unable to Obtain Home Meds 03/28/18 03/28/18 History Physical Exam Vital signs: Vital Signs 03/28/18 22:23 03/28/18 22:36 03/28/18 22:59 Temperature 97.3 F L Pulse Rate 100 H 96 H 93 H Respiratory Rate 16 18 20 Blood Pressure 133/77 139/97 H Pulse Oximetry 99 96 99 03/28/18 23:09 03/29/18 02:24 03/29/18 07:00 Temperature 97.9 F Pulse Rate 104 H Respiratory Rate 19 12 Blood Pressure 160/97 H Pulse Oximetry 99 99 03/29/18 07:55 03/29/18 08:00 03/29/18 10:00 Temperature 98.3 F Pulse Rate 88 78 Respiratory Rate 16 Blood Pressure 151/109 H 162/100 H Pulse Oximetry 99 99 Intake & Output 03/28/18 03/29/18 03/29/18 18:59 06:59 18:59 Weight 40 kg Other: # Voids 1 Date of Last Bowel Movement 03/29/18 # Bowel Movements 1 - Constitutional no acute distress, cachectic, chronically ill appearing - Routine HEENT Exam Head: Present: normocephalic, atraumatic Eye: Present: EOMI, PERRL ENT: Present: mucous membranes moist - Routine Neck Exam Present: supple, full ROM - Routine Respiratory Exam Present: CTA bilaterally - Routine Cardiovascular Exam Present: RRR, S1, S2. Absent: murmur, S3, S4 - Routine Abdominal Exam Present: soft, normoactive bowel sounds - Routine Extremities Exam Absent: cyanosis, clubbing, edema - Routine Skin Exam Present: intact - Routine Neurological Exam Present: alert, oriented X3 - Routine Psychiatric Exam Present: normal affect Assessment and Plan - Assessment (1) Aortic dissection, thoracic Code(s): I71.01 - Dissection of thoracic aorta Status: Acute (2) Dissection of aortic arch Code(s): I71.01 - Dissection of thoracic aorta Status: Acute - Plan 78y/o female presents with known aneurysmal disease. She was seen by Dr. Clements in 2010 at which time the thoracoabdominal aneurysm was smaller and he did not recommend surgery. She is very cachectic currently and states she has been losing weight for unclear reasons. I discussed operative intervention with her and discussed the risk of surgery. I also explained that she would not likely survive with non-operative management. She is resolved to NOT have surgery and understands her decision and its consequences. Recommend: 1. meticulous BP control with beta blockers and vasodilators. 2. Palliative Care consultation Discussed Condition With: patient
[2018-03-29] MEDS: Metoprolol Tartrate 25 MG Tablet PO SCH ×2 (13:54→17:24)
--- NOTE | 2018-03-29 14:21 | P.PNCA ---
Physical Exam Vital signs: Vital Signs 03/28/18 22:23 03/28/18 22:36 03/28/18 22:59 Temperature 97.3 F L Pulse Rate 100 H 96 H 93 H Respiratory Rate 16 18 20 Blood Pressure 133/77 139/97 H Pulse Oximetry 99 96 99 03/28/18 23:09 03/29/18 02:24 03/29/18 07:00 Temperature 97.9 F Pulse Rate 104 H Respiratory Rate 19 12 Blood Pressure 160/97 H Pulse Oximetry 99 99 03/29/18 07:55 03/29/18 08:00 03/29/18 10:00 Temperature 98.3 F Pulse Rate 88 78 Respiratory Rate 16 Blood Pressure 151/109 H 162/100 H Pulse Oximetry 99 99 03/29/18 12:00 Temperature 98.7 F Pulse Rate 95 H Respiratory Rate 18 Blood Pressure 154/100 H Pulse Oximetry 97 Intake & Output 03/28/18 03/29/18 03/29/18 18:59 06:59 18:59 Weight 40 kg Other: # Voids 1 Date of Last Bowel Movement 03/29/18 # Bowel Movements 1 - Constitutional mild distress Assessment and Plan - Assessment (1) Abdominal aneurysm Code(s): I71.4 - Abdominal aortic aneurysm, without rupture Status: Chronic Plan: Admitted chest pain center. Ruled out with 2 sets of EKGs and cardiac enzymes. Monitor on telemetry overnight. Seen and evaluated by Dr. Anthony Monroe. Discomfort likely related to known aneurysm. Repeat aorta CTA. Likely will require in patient hospital stay if changes are identified on repeat Aorta CTA.ST changes may reflect ischemia from known acute marginal stenosis, EKG since resolved and troponin remained unchanged. [address] Monroe and made aware of acute dissection. Dr. Monroe called continuous process coffee roaster vascular surgeon, Dr. Gaytan who will assess patient shortly. Discussed with RN. Informed patient of acute findings and consult for vascular surgeon. (2) Ascending aortic dissection Code(s): I71.01 - Dissection of thoracic aorta Status: Acute (3) Ascending aortic aneurysm Code(s): I71.2 - Thoracic aortic aneurysm, without rupture Status: Acute Plan: Dr Cadena spoke with patient in length regarding aorta CTA findings. Patient verbalized severity of findings and does NOT wish to have surgery. Called daughter and made aware of acute findings and mother wish not to proceed with surgery. Daughter will notify her father, as multiple attempts to reach him have been unsuccessful and if family would like to speak with surgeon this can be arranged. Discussed with Dr. Luis who will be taking over as attending MD. Plan of care reviewed with RN. - Plan This patient's current presentation is most consistent with further extension of her aneurysmal dissection which has been documented on prior studies. Her EKG changes may reflect some ischemia in the small acute marginal branch but probably did not constitute a significant level of concern at this time compared to her abdomen. The plan is to repeat studies of her thorax and abdomen to determine if there is evidence of further extension of the aneurysm. If there is she will need to be admitted for pain control and general medical management even if not a candidate for further intervention. If this is the case she should certainly be evaluated for either hospice or palliative care. If there is no evidence of extension then I would consider the addition of a long-acting nitrate to reduce the risk of ischemia in the acute marginal branch.
[2018-03-29] MEDS ORDERED: Isosorbide Mononitrate 30 MG ER 24HR Tablet (Imdur) PO SCH (15:00)
--- NOTE | 2018-03-29 15:05 | P.PNIM ---
Subjective Interval history: Discussed patient with chest pain center [facility]. I have seen and examined the patient. Patient reports chest pain is under control. She is alert and oriented 4, with the exception of initially reporting that is 26 March 2018. She does not want invasive intervention, however is amenable to blood pressure control. She is amenable to hospice consultation. Transfer to ICU. Blood pressure medications adjusted with addition of nitroprusside drip. Every hour blood pressure checks. Physical Exam Vital signs: Vital Signs 03/28/18 22:23 03/28/18 22:36 03/28/18 22:59 Temperature 97.3 F L Pulse Rate 100 H 96 H 93 H Respiratory Rate 16 18 20 Blood Pressure 133/77 139/97 H Pulse Oximetry 99 96 99 03/28/18 23:09 03/29/18 02:24 03/29/18 07:00 Temperature 97.9 F Pulse Rate 104 H Respiratory Rate 19 12 Blood Pressure 160/97 H Pulse Oximetry 99 99 03/29/18 07:55 03/29/18 08:00 03/29/18 10:00 Temperature 98.3 F Pulse Rate 88 78 Respiratory Rate 16 Blood Pressure 151/109 H 162/100 H Pulse Oximetry 99 99 03/29/18 12:00 03/29/18 14:57 Temperature 98.7 F Pulse Rate 95 H 84 Respiratory Rate 18 Blood Pressure 154/100 H 124/96 H Pulse Oximetry 97 Intake & Output 03/28/18 03/29/18 03/29/18 18:59 06:59 18:59 Intake Total 100 / 100 Balance 100 / 100 Weight 40 kg Intake: IV 100 / 100 NS + KCl 20 mEq Inj 1,000 ML @ 100 / 100 40 mls/hr IV.CONT .Q24H [facility] Rx# :[id number] Other: # Voids 1 Date of Last Bowel Movement 03/29/18 # Bowel Movements 1 Results - Labs CBC & Chem 7: 03/28/18 23:16 03/28/18 23:16 Laboratory Results - last 24 hr 03/28/18 03/28/18 03/28/18 23:16 23:16 23:16 WBC 10.5 RBC 3.82 L Hgb 12.2 Hct 36.4 MCV 95.3 MCH 32.1 MCHC 33.6 RDW 14.9 Plt Count 141 L MPV 9.4 Neut % (Auto) 76.1 H Lymph % (Auto) 10.6 [place] % (Auto) 13.2 H Eos % (Auto) 0.0 Baso % (Auto) 0.1 Neut # (Auto) 8.0 H Lymph # (Auto) 1.1 [place] # (Auto) 1.4 H Eos # (Auto) 0.0 Baso # (Auto) 0.0 WBC Differential . Differential Comment Auto diff final PT 12.0 H INR 1.2 APTT 31.5 H Sodium 136 Potassium 3.2 L Chloride 100 Carbon Dioxide 21.2 Anion Gap 15 BUN 34 H Creatinine 0.94 Estimated GFR 70 L Random Glucose 115 H Calcium 9.1 Magnesium 2.2 Total Bilirubin 0.9 AST 32 ALT 19 Alkaline Phosphatase 122 H Total Creatine Kinase 42 Troponin I Less than 0.02 L Total Protein 7.6 Albumin 3.2 L 03/29/18 04:15 WBC RBC Hgb Hct MCV MCH MCHC RDW Plt Count MPV Neut % (Auto) Lymph % (Auto) [place] % (Auto) Eos % (Auto) Baso % (Auto) Neut # (Auto) Lymph # (Auto) [place] # (Auto) Eos # (Auto) Baso # (Auto) WBC Differential Differential Comment PT INR APTT Sodium Potassium Chloride Carbon Dioxide Anion Gap BUN Creatinine Estimated GFR Random Glucose Calcium Magnesium Total Bilirubin AST ALT Alkaline Phosphatase Total Creatine Kinase 40 Troponin I Less than 0.02 L Total Protein Albumin - Imaging Impressions Chest X-Ray 03/28/18 22:59 CONCLUSION: Stable chest appearance Thoracic Aorta CT 03/29/18 00:00 CONCLUSION: Acute dissection of the ascending aorta with contrast extravasation sparing aortic root with continued opacification of brachiocephalic vessels. There is associated mediastinal hematoma. Findings was discussed with Dr. Monroe at the time of dictation
[2018-03-30 07:46] LABS: Baso % (Auto) 0.2 % (0.0-2.0); Eos % (Auto) 0.3 % (0.0-4.0); Hematocrit 35.9 % (35.0-46.0); Hemoglobin 11.9 gm/dL (11.6-15.3); Lymph % (Auto) 12.2 % (9.0-44.0); Mean Corpuscular Hemoglobin 31.6 pg (27.0-34.0); Mean Corpuscular Volume 95.6 fL (80.0-100.0); Mean Platelet Volume 8.7 fL (7.0-11.0); Mono % (Auto) 11.6 % (0.0-8.0); Neut # (Auto) 6.4 th/mm3 (1.8-7.7); Neut % (Auto) 75.7 % (16.0-70.0); Platelet Count 121 th/mm3 (150-450); Red Blood Count 3.75 mil/mm3 (4.00-5.30); Red Cell Distribution Width 14.8 % (11.6-17.2); White Blood Count 8.4 th/mm3 (4.0-11.0)
[2018-03-30 08:03] LABS: Calcium 9.2 mg/dL (8.5-10.1); Carbon Dioxide 23.5 meq/L (21.0-32.0); Potassium 3.1 meq/L (3.5-5.1)
[2018-03-30] MEDS: Metoprolol Tartrate 25 MG Tablet PO SCH (08:28)
[2018-03-30] MEDS: Morphine Inj 4 MG/ML Vial IV.PUSH PRN ×2 (08:28→19:51)
--- NOTE | 2018-03-30 09:54 | P.PNFP ---
Subjective Interval history: Pt seen and examined for f/u of acute aortic dissection. Sitting in chair comfortably. Main concern is hunger and asking where her breakfast tray is. Denies chest pain, palpitations, or dizziness. Endorsing same abdominal pain as she has been experiencing. Reiterates she does not want surgery and she has spoken to her family who is in agreement. Wants hospice consult. Results - Labs Result diagrams: 03/30/18 06:02 03/30/18 06:02 Abnormal lab results 03/30/18 03/30/18 Range/Units 06:02 06:02 RBC 3.75 L (4.00-5.30) mil/mm3 Plt Count 121 L (150-450) th/mm3 Neut % (Auto) 75.7 H (16.0-70.0) % [place] % (Auto) 11.6 H (0.0-8.0) % [place] # (Auto) 1.0 H (0.0-0.9) th/mm3 Potassium 3.1 L (3.5-5.1) meq/L BUN 34 H (7-18) mg/dL Estimated GFR 81 L (>89) mL/min Random Glucose 117 H (74-106) mg/dL Short CBC 03/30/18 Range/Units 06:02 WBC 8.4 (4.0-11.0) th/mm3 Hgb 11.9 (11.6-15.3) gm/dL Hct 35.9 (35.0-46.0) % Plt Count 121 L (150-450) th/mm3 BMP 03/30/18 06:02 Sodium 138 Potassium 3.1 L Chloride 104 Carbon Dioxide 23.5 BUN 34 H Creatinine 0.83 Calcium 9.2 - Imaging Impressions Thoracic Aorta CT 03/29/18 00:00 CONCLUSION: Acute dissection of the ascending aorta with contrast extravasation sparing aortic root with continued opacification of brachiocephalic vessels. There is associated mediastinal hematoma. Findings was discussed with Dr. Monroe at the time of dictation Physical Exam Vital signs: Vital Signs 03/29/18 10:00 03/29/18 12:00 03/29/18 14:57 Temperature 98.7 F Pulse Rate 78 95 H 84 Respiratory Rate 18 Blood Pressure 162/100 H 154/100 H 124/96 H Pulse Oximetry 97 03/29/18 17:28 03/29/18 18:49 03/29/18 20:00 Temperature 98.6 F 97 F L Pulse Rate 77 75 72 Respiratory Rate 21 24 17 Blood Pressure 125/85 122/85 140/94 H Pulse Oximetry 100 100 99 03/29/18 22:00 03/29/18 22:05 03/29/18 22:07 Temperature Pulse Rate 79 79 78 Respiratory Rate 14 11 L 15 Blood Pressure 109/70 109/70 Pulse Oximetry 96 98 98 03/29/18 23:00 03/29/18 23:01 03/30/18 00:00 Temperature 98 F Pulse Rate 79 79 86 Respiratory Rate 12 13 14 Blood Pressure 117/83 128/93 H Pulse Oximetry 97 99 03/30/18 00:01 03/30/18 01:00 03/30/18 01:13 Temperature Pulse Rate 85 80 80 Respiratory Rate 15 11 L 11 L Blood Pressure 128/93 H 118/78 Pulse Oximetry 99 97 99 03/30/18 02:00 03/30/18 02:07 03/30/18 03:00 Temperature Pulse Rate 78 79 84 Respiratory Rate 11 L 10 L 14 Blood Pressure 134/80 117/80 Pulse Oximetry 98 92 L 98 03/30/18 04:00 03/30/18 05:00 03/30/18 06:00 Temperature 97.8 F Pulse Rate 87 84 94 H Respiratory Rate 13 17 15 Blood Pressure 111/77 118/80 114/74 Pulse Oximetry 99 100 98 03/30/18 07:00 03/30/18 08:00 03/30/18 08:46 Temperature 98.3 F Pulse Rate 91 H 98 H Respiratory Rate 15 15 Blood Pressure 123/86 113/70 Pulse Oximetry 98 97 100 03/30/18 09:00 Temperature Pulse Rate 110 H Respiratory Rate 22 Blood Pressure 126/70 Pulse Oximetry 94 L Intake & Output 03/29/18 03/30/18 03/30/18 18:59 06:59 18:59 Intake Total 100 / 100 300 / 300 Output Total 3 / 3 Balance 97 / 97 300 / 300 Weight 35 kg Intake: IV 100 / 100 NS + KCl 20 mEq Inj 1,000 ML @ 100 / 100 40 mls/hr IV.CONT .Q24H [facility] Rx# :[id number] Oral 300 / 300 Output: Urine 3 / 3 Other: # Voids 1 Date of Last Bowel Movement 03/29/18 03/29/18 # Bowel Movements 1 Narrative: GENERAL: Cachectic appearing elderly female sitting up in chair in NAD. SKIN: Warm and dry. NECK: Supple no tender LAD or JVD. HEART: RRR no m/r/g. LUNGS: Diminished breath sounds otherwise CTAB without wheezes or crackles. ABDOMEN: Pulsating mass. Mild TTP. EXTREMITIES: No LE edema. NEURO: Awake and alert. Nonfocal. PSYCH: Appropriate mood and affect. Assessment and Plan - Assessment (1) Ascending aortic dissection Code(s): I71.01 - Dissection of thoracic aorta Status: Acute (2) Abdominal aneurysm Code(s): I71.4 - Abdominal aortic aneurysm, without rupture Status: Chronic - Assessment and Plan 78 YOAAF with known AAA and TAA, COPD, HTN, and PVD admitted yesterday with worsening chest and abdominal pain. She was found to have an acute aortic arch dissection. 1. Ascending aorta dissection - CTA aorta showing acute dissection of the ascending aorta with contrast extravasation and associated mediastinal hematoma. Findings were immediately reported to Dr. Monroe - Cardiology and CT surgery following - Pt refusing surgery and understands that non-operative management is associated with an extremely high mortality - Consult hospice - Aggressive BP control - Increase metoprolol to 50 mg TID - Continue nitroprusside drip, transition to PO vasodilator if patient going to hospice care facility - Pain control with morphine 2. HTN - BP control as above 3. COPD - Supplemental O2 PRN - Bronchodilators PRN DVT prophylaxis: SCDs Discharge Planning: Hospice consulted
--- NOTE | 2018-03-30 11:01 | P.PNPAL ---
Palliative care consulted to assist with goals of medical treatment. Hospice also consulted. Spoke with hospice admissions nurse. Hospice consents signed. Patient is discharge home with hospice. Palliative care will remain available for full consultation should medical treatment goals change.
--- NOTE | 2018-03-30 12:03 | ECG ---
Date Performed: 03/29/2018 Time Performed: 09:38:50 PTAGE: 78 years EKG: Sinus rhythm LEFT ATRIAL ENLARGEMENT POSSIBLE LEFT VENTRICULAR HYPERTROPHY POSSIBLE SEPTAL MYOCARDIAL INFARCTION MODERATE T-WAVE ABNORMALITY, CONSIDER LATERAL ISCHEMIA ABNORMAL ECG PREVIOUS TRACING : 03/28/2018 22.33 DOCTOR: Danni Rothman Interpretating Date/Time 03/30/2018 12:00:44
--- NOTE | 2018-03-30 14:48 | ECG ---
Date Performed: 03/28/2018 Time Performed: 22:33:44 PTAGE: 78 years EKG: Sinus rhythm POSSIBLE RIGHT ATRIAL ENLARGEMENT LEFT ATRIAL ENLARGEMENT POSSIBLE RIGHT VENTRICULAR CONDUCTION MEGHAN Y LEFT VENTRICULAR HYPERTROPHY AND ST-T CHANGE ABNORMAL ECG NO PREVIOUS TRACING DOCTOR: Brandt Arenas Interpretating Date/Time 03/30/2018 14:46:59
[2018-03-30] MEDS: Metoprolol Tartrate 50 MG Tablet PO SCH ×2 (17:17→17:19)
[2018-03-30] MEDS: hydrALAZINE 25 MG Tablet PO SCH (17:17)
[2018-03-31] MEDS: hydrALAZINE 25 MG Tablet PO SCH ×2 (08:10→12:49)
[2018-03-31] MEDS: Metoprolol Tartrate 50 MG Tablet PO SCH ×2 (08:11→12:49)
--- NOTE | 2018-03-31 10:16 | P.PN ---
Physical Exam Vital signs: Vital Signs 03/30/18 11:00 03/30/18 12:00 03/30/18 13:00 Temperature 98.2 F Pulse Rate 72 76 74 Respiratory Rate 18 21 19 Blood Pressure 125/80 136/75 137/82 Pulse Oximetry 99 100 98 03/30/18 14:00 03/30/18 14:01 03/30/18 15:00 Temperature Pulse Rate 81 83 105 H Respiratory Rate 17 17 24 Blood Pressure 146/88 H Pulse Oximetry 99 99 75 L 03/30/18 15:01 03/30/18 16:00 03/30/18 20:00 Temperature 97.6 F 97.6 F Pulse Rate 104 H 88 Respiratory Rate 21 47 H 18 Blood Pressure 119/83 133/87 120/84 Pulse Oximetry 92 L 100 03/31/18 00:00 03/31/18 04:00 03/31/18 07:15 Temperature 97.2 F L Pulse Rate Respiratory Rate Blood Pressure 132/63 Pulse Oximetry 99 95 03/31/18 08:00 Temperature 97.7 F Pulse Rate 99 H Respiratory Rate 22 Blood Pressure 138/95 H Pulse Oximetry 98 Intake & Output 03/30/18 03/31/18 03/31/18 18:59 06:59 18:59 Intake Total 350 / 350 350 / 350 Output Total 3 / 3 Balance 350 / 350 347 / 347 Weight 35 kg Intake: Oral 350 / 350 350 / 350 Output: Urine 3 / 3 Other: # Voids 3 3 Date of Last Bowel Movement 03/29/18 03/29/18 # Bowel Movements 1 Narrative: BP has been stable. Some nausea in the am, add Phenergan and zofran Discussed with hospice, plan to DC home with hospice Original Note: Subjective Interval history: F/u of acute aortic dissection. With nausea not controlled by reglan add phenergan and zofran prn Physical Exam GENERAL: Cachectic appearing elderly female. HEART: RRR no m/r/g. LUNGS: Diminished breath sounds otherwise CTAB without wheezes or crackles. ABDOMEN: Pulsating mass. Mild TTP. Assessment and Plan 78 YOAAF with known AAA and TAA, COPD, HTN, and PVD admitted yesterday with worsening chest and abdominal pain. She was found to have an acute aortic arch dissection. 1. Ascending aorta dissection - CTA aorta showing acute dissection of the ascending aorta with contrast extravasation and associated mediastinal hematoma. Findings were immediately reported to Dr. Monroe - Cardiology and CT surgery following - Pt refusing surgery and understands that non-operative management is associated with an extremely high mortality - Consult hospice - Aggressive BP control - Increase metoprolol to 50 mg TID - Continue nitroprusside drip, transition to PO vasodilator if patient going to hospice care facility - Pain control with morphine 2. HTN - BP control as above 3. COPD - Supplemental O2 PRN - Bronchodilators PRN 4. Nausea. Antiemetics as need DVT prophylaxis: SCDs Discharge Planning: Hospice consulted. DC to home with hospice , discussed with hospice service. Results - Labs CBC & Chem 7: 03/30/18 06:02 03/30/18 06:02 Assessment and Plan - Assessment (1) Ascending aortic dissection Code(s): I71.01 - Dissection of thoracic aorta Status: Acute (2) Abdominal aneurysm Code(s): I71.4 - Abdominal aortic aneurysm, without rupture Status: Chronic
[2018-03-31] MEDS: Morphine Inj 4 MG/ML Vial IV.PUSH PRN (10:19)
--- NOTE | 2018-03-31 17:13 | P.DS ---
Date of admission: 03/31/18 07:51 Primary care physician: UNKNOWN Brief History from admission: 78 year old female presents to ER for further evaluation of abdominal and chest pain. Onset Friday. Location lower abdominal. Characterizes intermittent sharp , shooting pain. Duration seconds, occurring in waves every 5-10 minutes. began vomiting intermittently, non-blood emesis and frequent loose stools. Endorses poor appetite. Diarrhea improving and vomiting resolved. Remains nauseous. No precipitating factors. Relieving factors sitting up or bending over, until pain subsides. No recent illness, fever or chills. In regards to chest pain, onset . Location multiple areas including substernal, right and left inframammary area. Chest pain occurs different areas at different times. Duration seconds. Characterized as "a dull, nagging pain." No radiation. No precipitating or relieving factors. She cannot recall home medications or reason medications are prescribed. No changes in urination, frequency, and denies dysuria. DS: Diagnosis - Discharge Diagnosis (1) Ascending aortic dissection Status: Acute (2) Abdominal aneurysm Status: Chronic DS: Summary Hospital Course: 78 YOAAF with known AAA and TAA, COPD, HTN, and PVD admitted yesterday with worsening chest and abdominal pain. She was found to have an acute aortic arch dissection. Patient is DC home with hospice expect deterioration 1. Ascending aorta dissection - CTA aorta showing acute dissection of the ascending aorta with contrast extravasation and associated mediastinal hematoma. Findings were immediately reported to Dr. Monroe - Cardiology and CT surgery following - Pt refusing surgery and understands that non-operative management is associated with an extremely high mortality - Consult hospice - Aggressive BP control - Increase metoprolol to 50 mg TID - Continue nitroprusside drip, transition to PO vasodilator if patient going to hospice care facility - Pain control with morphine 2. HTN - BP control as above 3. COPD - Supplemental O2 PRN - Bronchodilators PRN 4. Nausea. Antiemetics as need DVT prophylaxis: SCDs Discharge Planning: Hospice consulted. DC to home with hospice - Time Spent with Patient Total time spent providing and/or coordinating discharge services: Greater than 30 minutes - Quality: VTE Deep Vein Thrombosis/Pulmonary Embolism Present on Admission: No Exam Vital signs: Vital Signs 03/30/18 20:00 03/31/18 00:00 03/31/18 04:00 Temperature 97.6 F 97.2 F L Pulse Rate Respiratory Rate 18 Blood Pressure 120/84 132/63 Pulse Oximetry 100 99 03/31/18 07:15 03/31/18 08:00 03/31/18 12:00 Temperature 97.7 F 97.6 F Pulse Rate 99 H 79 Respiratory Rate 22 25 H Blood Pressure 138/95 H 115/75 Pulse Oximetry 95 98 95 Intake & Output 03/30/18 03/31/18 03/31/18 18:59 06:59 18:59 Intake Total 350 / 350 350 / 350 Output Total 3 / 3 Balance 350 / 350 347 / 347 Weight 35 kg Intake: Oral 350 / 350 350 / 350 Output: Urine 3 / 3 Other: # Voids 3 3 Date of Last Bowel Movement 03/29/18 03/29/18 # Bowel Movements 1 Narrative: GENERAL: Cachectic appearing elderly female. HEART: RRR no m/r/g. LUNGS: Diminished breath sounds otherwise CTAB without wheezes or crackles. ABDOMEN: Pulsating mass. Mild TTP. Results Procedures completed during hospitalization: none - Impressions ITS Impressions Chest X-Ray 03/28/18 22:59 CONCLUSION: Stable chest appearance Thoracic Aorta CT 03/29/18 00:00 CONCLUSION: Acute dissection of the ascending aorta with contrast extravasation sparing aortic root with continued opacification of brachiocephalic vessels. There is associated mediastinal hematoma. Findings was discussed with Dr. Monroe at the time of dictation Discharge Plan - Discharge Disposition Patient Disposition: 50 Hospice/Home - Discharge Order Discharge Orders: Discharge Order (Routine); Ordered 03/31/18 Ordered By: Shelli Castro - Physicians Team Primary Care Provider: UNKNOWN, Attending Provider: Shelli Castro Other Providers: Genesis Cadena MD ; Kale Gaytan MD ; Tyler Barber MD
== END 2018-03-31 14:21 | disposition hospice, home (50) ==
LOC: NEDA 22:19 → NEPC 22:19 → NEPHCDU 03-29 01:56 → HIMC 03-29 16:50
PROVIDERS: ADMIT Hospitalist; ATTEND Hospitalist
DX: I73.9 Peripheral vascular disease, unspecified; J44.9 Chronic obstructive pulmonary disease, unspecified; F17.210 Nicotine dependence, cigarettes, uncomplicated; I71.4 Abdominal aortic aneurysm, without rupture; I10 Essential (primary) hypertension; Z51.5 Encounter for palliative care; I71.01 Dissection of thoracic aorta